=== PATIENT | female | born 1945 | race Caucasian/White ===

== ENCOUNTER 2024-09-02 00:32 | Inpatient (IN) | payer MEDICARE, BC, SELFPAY ==
[2024-09-01] VITALS (17 sets, daily range): BP systolic 92–156; BP diastolic 56–135; PULSE 119; BMI 20.9
--- NOTE | 2024-09-01 21:12 | ED.GENMED ---
History of Present Illness
General
Chief Complaint: Breathing Problem
Time Seen by Provider: 09/01/24 21:11
History of Present Illness
History of Present Illness:
TIME OF INITIAL EVALUATION
- 9:15 PM
REVIEW OF OLD RECORDS
- The patient has history of COPD and is a former smoker. Reviewed records, the patient had vascular surgery in 2022
Note:
CHIEF COMPLAINT(S)
- Breathing difficulty
HISTORY OF PRESENT ILLNESS
Details are initially very limited. The patient is a 79-year-old female presenting with ongoing difficulty breathing. The onset of the breathing issues was not specified, but the patient currently reports no improvement in her breathing status at
present. There has been no mention of previous intubation or severe respiratory distress requiring immediate intervention. The patient has been receiving nebulizer treatments and will continue to receive additional doses. Steroids have not been
administered.
PHYSICAL EXAM
- General: The patient is critically ill in appearance
- HEENT: Moist oral mucosa
- Cardiovascular: No murmurs, tachycardic heart rate, regular rhythm, No chest wall tenderness
- Pulmonary: Marked respiratory distress with increased work of breathing, she has not been communicating, markedly decreased breath sounds with scant wheeze heard on the right
- Abdomen: Soft with no peritoneal signs, no tenderness
- Neurologic: Fair strength all extremities, no coordination deficits
- Psychiatric: Currently nonverbal having trouble communicating and answering any questions, seems to attempt to try to follow commands
- Extremities: Nontender, no edema, moves all extremities equally
- Skin: No rash, no lesions
PROBLEM LIST
Acute Problems:
- Difficulty breathing
PLAN
- Continue nebulizer treatment as initiated.
- Consider the administration of steroids if symptoms persist or worsen.
- Monitor respiratory status and reassess breathing difficulty.
- Obtain arterial blood gas (ABG) for further assessment of respiratory function, if needed.
DIFFERENTIAL DIAGNOSIS
The Differential Diagnosis includes, in no particular order and is not limited to:
1. Chronic obstructive pulmonary disease exacerbation
2. Asthma exacerbation
3. Pneumonia
4. Pulmonary embolism
5. Congestive heart failure
6. Acute bronchitis
7. Interstitial lung disease
8. Pleural effusion
9. Anemia
10. Anxiety-related hyperventilation
RADIOLOGY
- Chest x-ray shows hyperaeration
EKG
- Suspect multifocal atrial tachycardia ventricular rate of 132, nonspecific ST abnormality
LABS
- Chest x-ray shows hyperaeration consistent with COPD, pH 7.06, PCO2 73, white count 10.5, bicarb 17
UPDATE
At approximately 9:30 PM, the patient's condition continued to worsen. She has been having trouble communicating due to severe respiratory distress�intubated as ABG is concerning.
SUMMARY OF ENCOUNTER
The patient was seen in the emergency department for severe respiratory distress due to an acute exacerbation of her COPD. Her condition did not improve with bilevel positive airway pressure (BAP) treatment, necessitating intubation. Arterial blood
gas (ABG) showed respiratory acidosis, indicating a critical level of respiratory failure. The intubation procedure was completed without difficulty, and an ICU admission is planned. A chest x-ray confirmed no concerning abnormalities, and the
endotracheal tube was appropriately placed.
DISPOSITION
Admit to ICU.
ASSESSMENT
The patient is experiencing an acute exacerbation of Chronic Obstructive Pulmonary Disease (COPD) with respiratory acidosis, likely necessitating intensive care unit admission for close monitoring and management.
EMERGENCY TREATMENTS ADMINISTERED
Intubation due to failure of non-invasive ventilation therapies and ongoing respiratory distress.
INDEPENDENT REVIEW OF LABS AND INTERPRETATION OF TESTS
- My independent review of ABG indicates respiratory acidosis.
- My independent review of CBC shows leukocytosis, with a white count of 15.5.
- My independent interpretation of the chest x-ray shows no concerning abnormality; endotracheal tube placement is appropriate.
MEDICAL DECISION MAKING
- Complexity of Data Reviewed: Chronic conditions affecting care include Chronic Obstructive Pulmonary Disease (COPD). Differential Diagnosis considered included acute exacerbation of COPD, pneumonia, congestive heart failure exacerbation, pulmonary
embolism, asthma exacerbation, and others.
- Data:
- Category 1: My independent review of ABG and CBC. Chest x-ray independently interpreted.
- Risk: Admission to ICU was deemed necessary due to the patient�s severe respiratory distress and failure to improve with initial management, thus requiring critical care and close monitoring.
DIAGNOSIS
- Acute exacerbation of Chronic Obstructive Pulmonary Disease (COPD) (ICD-10: J44.1).
- Respiratory acidosis (ICD-10: E87.29).
Phy Exam
Physical Exam
Physical Exam:
See HPI
Scores
Heart Failure Risk
Heart Failure Risk Score: Not Applicable
Course
Orders/Labs/Results
Orders:
Orders
09/01/24 21:07
Electrocardiogram (*1) Urgent
Reason for Study: Shortness of Breath
09/01/24 21:08
EKG- Treatment ONCE
09/01/24 21:14
Complete Blood Count/With Diff Urgent
Comprehensive Metabolic Panel Urgent
09/01/24 21:16
Ipratropium/Albuterol Sulfate [Duoneb] 3 ml INH R NOW STA
Ipratropium/Albuterol Sulfate [Duoneb] 3 ml INH R NOW STA
MethylPREDNISolone PF [Solu-Medrol Pf] 125 mg IV NOW STA
Chest X-ray Portable [CR Chest Portable - 1 View] Urgent
Comment:
Reason For Exam: copd
Reason Study Needs to be Portable: Patient Unstable
09/01/24 21:20
Arterial Blood Gas Urgent
%Oxygen/Room Air: 6L
09/01/24 21:48
Chest X-ray Portable [CR Chest Portable - 1 View] Urgent
Comment:
Reason For Exam: post intubation
Reason Study Needs to be Portable: Patient Unstable
09/01/24 21:49
Add On- LAB Urgent
Comments:: BNP
Tests Added?: BNP to CBC
09/01/24 21:51
Etomidate [Amidate 20 mg] 15 mg IV NOW STA
Fentanyl Citrate/Pf [Sublimaze] 50 mcg IV [id number] PRN
Fentanyl Citrate/Pf [Sublimaze] 55 mcg IV NOW STA
Succinylcholine Chloride [Anectine] 100 mg IV NOW STA
09/01/24 21:52
Triglycerides Routine
Comment: baseline levels with propofol infusion
09/01/24 22:00
FentaNYL 1,000 MCG/100 ML [Sublimaze] 1,000 mcg in 100 ml IV PER PROTOCOL
Indication:: Deep Sedation
Begin Infusion:: Now
Goal:: RASS </= -3, BIS 40-60, ventilator synchrony
Maximum dose in mcg/hr:: 300
Initial Dose in mcg/hr:: 50
Titration Instructions:: Titrate Q30 min until ventilator synchrony, RASS or BIS goal is met.
Titration Instructions:: If RASS >/= -2 or BIS > 60 or ventilator dyssynchrony:
Titration Instructions:: administer bolus dose and increase infusion by 25 mcg/hr.
Titration Instructions:: Administer analgesia bolus dose(s) & titrate analgesia prior to
Titration Instructions:: adjusting sedation.
Over-sedation Instructions:: if BIS < 40 and pt is synchronous with ventilator, decrease infusion by
Over-sedation Instructions:: 25 mcg/hr every 2 hours until BIS = 40-60.
Over-sedation Instructions:: Do not wean infusion to off if patient is receiving a continuous NMBA or
Over-sedation Instructions:: has received a bolus dose of NMBA within the past 3 hours.
Notify provider:: immediately if pt exhibits signs/symptoms of chest wall rigidity,
Notify provider:: hemodynamic instability, or agitation/pain despite maximum dosing.
Additional Instructions:: Patient MUST be mechanically ventilated.
Propofol 1,000,000 Mcg/100 ml [Diprivan] 1,000,000 mcg in 100 ml IV PER PROTOCOL
Indication:: Deep Sedation
Begin Infusion:: Now
Goal:: RASS -3 to -5 or BIS < 60 or ventilator synchrony
Maximum dose in mcg/kg/min:: 50
Initial Dose in mcg/kg/min:: 5
Titration Instructions:: Titrate by 5-10 mcg/kg/min every 5 minutes until RASS -3 to -5 or
Titration Instructions:: BIS < 60 or ventilator synchrony is met.
Titration Instructions:: Administer analgesia bolus dose(s) & titrate analgesia prior to
Titration Instructions:: adjusting sedation.
Taper Instructions:: If RASS is at or below goal for 4 consecutive hours decrease infusion by
Taper Instructions:: 5-10 mcg/kg/min every 2 hours. Do not wean infusion to off if patient is
Taper Instructions:: receiving a continuous NMBA or has received bolus NMBA with the past 3 hrs
Over-sedation Instructions:: If BIS < 40 and synchronous with ventilator decrease infusion by
Over-sedation Instructions:: 5-10 mcg/kg/min every 2 hour until BIS = 40-60.
Notify provider:: immediately if patient exhibits signs/symptoms of propofol-related
Notify provider:: infusion syndrome.
Additional Instructions:: Patient MUST be mechanically ventilated and MUST receive analgesia.
09/01/24 22:12
NT-proBNP Urgent
Comment: ADD ON
Troponin I Urgent
09/02/24 08:00
Polyethylene Glycol Powder [Miralax] 17 grams TUBE DAILY
09/04/24 06:00
Triglycerides Q3D
Comment: every 72 hours while patient is on propofol
09/07/24 06:00
Triglycerides Q3D
Comment: every 72 hours while patient is on propofol
09/10/24 06:00
Triglycerides Q3D
Comment: every 72 hours while patient is on propofol
Abnormal Lab Results
09/01/24 09/01/24
21:14 21:20
WBC 15.5 H 10^3/uL
(4.8-10.8)
RBC 4.07 L 10^6/uL
(4.20-5.40)
MCH 31.2 H pg
(27.0-31.0)
MCHC 32.2 L g/dL
(33.0-37.0)
Absolute Neuts (auto) 9.6 H 10^3/uL
(1.4-6.5)
Absolute Lymphs (auto) 4.6 H 10^3/uL
(1.2-3.4)
Absolute Monos (auto) 1.0 H 10^3/uL
(0.1-0.6)
pH 7.06 L*
(7.35-7.45)
pCO2 73 H* mmHg
(32-35)
pO2 76 L mmHg
(83-108)
HCO3 20.7 L mmol/L
(21-28)
ABG O2 Sat (Measured) 93.8 L %
(94-98)
Sodium 131 L mmol/L
(135-145)
Carbon Dioxide 17 L mmol/L
(22-30)
Glucose 267 H mg/dl
(70-99)
AST 39 H U/L
(14-36)
09/01/24 21:14
09/01/24 21:14
Vital Signs
Initial and Last Documented VS:
Initial Vital Signs
Pulse Ox
80
09/01/24 21:15
Last Documented Vital Signs
Temp Pulse Resp Pulse Ox
36.2 C 133 33 80
09/01/24 21:30 09/01/24 21:19 09/01/24 21:19 09/01/24 21:15
Procedures
Intubations
Procedure completed by: Dr. Makenna Roberts
Method of Intubation: glidescope
Tube size (cm): 7.5
Placement confirmed by: CXR and capnography
Breath sounds after intubation: equal
Intubation complications: no complications
*Pulse Oximetry
SaO2: 80
Oxygen Mode of Delivery: BiPAP
Patient hypoxic: yes
*Critical Care Note
Total Time (30-74mins, 75-104mins- exclusive of procedures): 55min
comment:
Patient has respiratory acidosis not improving on BiPAP�decision was later made to intubate, her vital signs were closely monitored she was emergently given nebs and steroids
ED Attending Note
-
Portions of this chart may have been created with voice recognition software.� Occasional wrong word or��sound alike� substitutions may have occurred due to the inherent limitations of voice recognition software.
Discharge Plan
Departure
Patient Disposition: Admit
Date of Disposition: 09/01/24
Time of Disposition: 22:20
Presentation/result/management discussed w/ accepting MD/DO: Hospitalist
Discharge Problem:
COPD exacerbation
Prescriptions:
No Action
pravastatin 40 mg Tablet
40 mg PO HS
clopidogrel 75 mg Tablet
75 mg PO QPM
albuterol sulfate 90 mcg/actuation Hfa Aerosol Inhaler
2 puff INHALATION PRN PRN (Reason: shortness of breath)
pioglitazone 30 mg Tablet
30 mg PO DAILY
Rx Instructions:
For choloesteral
losartan 100 mg Tablet
100 mg PO DAILY
ipratropium bromide 0.02 % Solution
2.5 ml INHALATION QID
ezetimibe 10 mg Tablet
10 mg PO DAILY
arformoterol 15 mcg/2 mL Solution For Nebulization
15 mcg INHALATION BID
Repatha SureClick 140 mg/mL Pen Injector
140 mg SC Q2W
aspirin 81 mg Tablet,Chewable
81 mg PO DAILY Qty: 90 0RF
Referrals:
UNKNOWN - PT DOES,NOT KNOW [Unknown Provider]
Interventions
Interventions:
*General Assessment Last Done: 09/01/24 21:10
*ED COVID-19 Vaccine History Last Done: 09/01/24 21:13
Discharge Date and Time
Print Language: ALGERIAN
[2024-09-01] MEDS: SOLU-MEDROL PF 125 MG IV (21:25)
[2024-09-01 21:26] LABS: B.E. -10.7 mmol/L; HCO3 20.7 mmol/L (21-28); O2 Saturation % 93.8 % (94-98); PO2 76 mmHg (83-108)
[2024-09-01 21:28] LABS: PCO2 73 mmHg (32-35)
[2024-09-01 21:29] LABS: Hematocrit 39.4 % (37.0-47.0); Hemoglobin 12.7 g/dL (12.0-16.0); Mean Corp Hgb Conc. 32.2 g/dL (33.0-37.0); Mean Corpuscular Volume 96.8 fL (81.0-99.0); Nucleated Red Blood Cells % 0 %; Platelet Count 313 10^3/uL (130-400); Red Cell Dist. Width 13.1 % (11.5-14.5)
[2024-09-01 21:58] LABS: ALT (SGPT) 22 U/L (0-35); AST (SGOT) 39 U/L (14-36); Albumin 4.0 g/dl (3.5-5.0); Alkaline Phosphatase 89 U/L (38-126); Blood Urea Nitrogen 15 mg/dl (7-17); Calcium 9.1 mg/dl (8.4-10.2); Carbon Dioxide 17 mmol/L (22-30); Chloride 103 mmol/L (98-107); Estimated Creatinine Clearance 43 ml/min; Glucose 267 mg/dl (70-99); Potassium 4.7 mmol/L (3.5-5.1); Sodium 131 mmol/L (135-145); Total Protein 7.2 g/dl (6.3-8.2); eGFR > 60.00
[2024-09-01] MEDS: DIPRIVAN 100 IV (21:58)
[2024-09-01] MEDS: ANECTINE 100 MG IV (21:59)
[2024-09-01] MEDS: AMIDATE 20 MG 15 MG IV (22:01)
[2024-09-01] MEDS: SUBLIMAZE 50 MCG IV (22:05)
[2024-09-01] MEDS: SUBLIMAZE 100 IV (22:08)
[2024-09-01 22:49] LABS: Troponin I 0.036 ng/ml
[2024-09-01] MEDS: LASIX 40 MG IV (23:05)
[2024-09-01 23:34] LABS: Triglycerides 105 mg/dl (10-149)
[2024-09-02] VITALS (45 sets, daily range): BP systolic 85–141; BP diastolic 42–85; BMI 20.4
--- NOTE | 2024-09-02 00:24 | HPS.HSE ---
Family Physician
-
Family Physician: Dimas Michelle
Chief Complaint
-
SOB
History of Present Illness
Patient is a 79y F with PMH significant for COPD, CHF and DM-II who presents to ED complaining of SOB. History obtained from ED staff and via phone. states that patient became ill about one week ago with cough, dyspnea and
fatigue. She slept a great deal for a few days and seemed to be feeling better. Over the past 24 hours she began to have wheezing and increased SOB. This evening called 911 as patient was in extremis. Patient presented to the ED in
respiratory distress. BiPAP was attempted in the ED without improvement in her dyspnea or oxygenation.
Patient was intubated in the ED and at the time of my exam is sedated and appears comfortable. Oxygen saturations are 99-100% on 100% FiO2.
states that she has had two prior similar hospitalizations in the past. She has been intubated on one prior occasion.
Medical History
Past Medical History
Past Medical History: Reports Other
Additional Past Medical History:
Hypertension
CHF - Unknown Type
Thoracic Aortic Aneurysm
COPD
DM-II
ASCVD / Carotid Stenosis
Past Surgical History: Reports Other
Additional Past Surgical History:
Cataracts
LLE Stent
Fem-Pop Bypass
Social History
Tobacco: Former Smoker
Alcohol: Occasional
Drug: None
Personal:
Living: With Family
Family History
Family History: Not pertinent
Allergies / Home Medications
Allergies reflects when Allergies were last updated in [employer].
Home Medications with original date entered in [employer]
Allergy/Medication List:
Allergies
Allergy/AdvReac Type Severity Reaction Status Date / Time
No Known Allergies Allergy Verified 09/01/24 21:26
Home Medications
albuterol sulfate 90 mcg/actuation aerosol inhaler 2 puff inhalation PRN PRN shortness of breath 10/17/22
aspirin 81 mg chewable tablet 81 mg PO DAILY #90 tabs 10/24/22
calcium 600 mg (as carbonate)-vitamin D3 5 mcg (200 unit) tablet 1 tab PO DAILY 09/02/24
furosemide 20 mg tablet 20 mg PO DAILY 09/02/24
metoprolol succinate 25 mg tablet,extended release 24 hr 25 mg PO DAILY 09/02/24
multivitamin 1 tab PO DAILY 09/02/24
tiotropium 2.5 mcg-olodaterol 2.5 mcg/actuation mist for inhalation (Stiolto Respimat) 2 puff inhalation DAILY 09/02/24
ursodiol 300 mg capsule 300 mg PO DAILY 09/02/24
Review of Systems
-
Unable to obtain full review of systems at this time due to: Patient Intubation
Physical Exam
Vital Signs
Vital Signs
Temp Pulse Resp BP Pulse Ox
98.9 F 97 17 107/69 80
09/01/24 22:10 09/02/24 00:15 09/02/24 00:15 09/02/24 00:15 09/01/24 22:41
Physical Exam
General: Other (79y F currently sedated on the ventilator.)
HEENT: Moist mucous membranes, PERRLA and Other (ETT in place. No JVD.)
Respiratory: Other (few coarse breath sounds at the L base - otherwise clear.)
Cardiac: S1/S2 and Regular Rhythm; No Murmur
GI: Soft, Non Tender, Non Distended and Normal Bowel Sounds
Musculoskeletal: No Clubbing, No Cyanosis and No Edema
Neuro: Sedated
Laboratory Results
-
09/01/24 21:14
09/01/24 21:14
Laboratory Results
pH 7.06 (7.35-7.45) L* 09/01/24 21:20
pCO2 73 mmHg (32-35) H* 09/01/24 21:20
pO2 76 mmHg (83-108) L 09/01/24 21:20
HCO3 20.7 mmol/L (21-28) L 09/01/24 21:20
Total Bilirubin 0.8 mg/dl (0.2-1.3) 09/01/24 21:14
AST 39 U/L (14-36) H 09/01/24 21:14
ALT 22 U/L (0-35) 09/01/24 21:14
Alkaline Phosphatase 89 U/L (38-126) 09/01/24 21:14
Troponin I 0.036 ng/ml H* 09/01/24 22:12
Impression/Plan
-
A/P: Patient is a 79y F with PMH significant for COPD, CHF and DM-II who presents to ED complaining of SOB.
LLL Pneumonia
COPD with Acute Exacerbation secondary to the above
Acute Hypoxemic and Hypercapnic Respiratory Failure secondary to the above
Sepsis secondary to the above
- Admit to ICU for further evaluation and treatment.
- Patient presents with tachycardia, tachypnea, leukocytosis and LLL pneumonia on CXR.
- note URI symptoms one week ago with interm improvement and then current symptoms - ? viral illness with secondary bacterial infection?
- IV abx. Check COVID / Flu status.
- Continue vent support.
- IV steroids given significant wheezing noted on initial exam / at home by - wean as able.
- Continue nebs ATC and PRN.
- Follow ABG and adjust vent settings as needed.
- Pulm / Pesticide Control Inspector evaluation.
- Follow for clinical improvement / wean from vent when able.
Chronic HF - Unknown Type
- Does not appear volume overloaded on exam.
- BNP elevation likely secondary to pulm HTN / respiratory distress.
- Hold further diuretics for now.
- IVFs +/- pressors as needed to maintain perfusion.
- Check Echo.
- Usually follows with Dr. Jose Regalado (Cardiology).
ASCVD (Carotid Stenosis / PAD)
Abnormal Troponin
- Troponin elevation likely due to acute illness / sepsis.
- Follow to [facility].
- Echo as noted above.
DM-II
- Not on any DM medications per list provided by .
- Follow glucose and cover with SSI as needed.
- Update A1C.
DVT Prophylaxis: Lovenox
Code Status: Full
[2024-09-02] MEDS: ROCEPHIN 1000 MG IV ×2 (01:03→23:11)
[2024-09-02] MEDS: STERILE WATER FOR INJECTION 10 ML IV ×2 (01:03→23:10)
[2024-09-02] MEDS: VIBRAMYCIN 260 MG IV ×3 (01:03→23:22)
[2024-09-02] MEDS: NSS 1000 IV (01:04)
[2024-09-02] MEDS: DUONEB 3 ML INH ×6 (01:09→18:25)
[2024-09-02 01:29] LABS: Urine Character Slightly Cloudy (Clear)
[2024-09-02 01:35] LABS: Urine Squamous Cell 0-2 /LPF (Few)
[2024-09-02 01:36] LABS: Urine Red Blood Cell 0-2 /HPF (0-2); Urine White Cell 50-60 /HPF (0-5)
[2024-09-02 01:46] LABS: COVID-19 Antigen Negative (Negative)
[2024-09-02 02:59] LABS: B.E. -4.5 mmol/L; HCO3 21.1 mmol/L (21-28); O2 Saturation % 99.5 % (94-98); PCO2 40 mmHg (32-35); PO2 160 mmHg (83-108); Potassium 3.5 mMOL/L (3.5-5.1); Sodium 132 mMOL/L (136-145)
--- NOTE | 2024-09-02 03:00 | PTCARENOTE ---
rec`d pt at 0200 from ED intubated and sedated on prop and fent. afebrile. 7.6 ETT a/c vent settings: 14/350/40%/ of peep. restraints. wynn. OGT. PIVS flushed and patent. safe environment maintained.
[2024-09-02 03:01] LABS: Glucose - Point of Care 137 mg/dl (70-99)
[2024-09-02 03:29] LABS: Hematocrit 34.0 % (37.0-47.0); Hemoglobin 11.3 g/dL (12.0-16.0); Mean Corp Hgb Conc. 33.2 g/dL (33.0-37.0); Mean Corpuscular Volume 93.7 fL (81.0-99.0); Platelet Count 157 10^3/uL (130-400); Red Cell Dist. Width 12.9 % (11.5-14.5)
[2024-09-02 03:48] LABS: ALT (SGPT) 34 U/L (0-35); AST (SGOT) 57 U/L (14-36); Albumin 3.5 g/dl (3.5-5.0); Alkaline Phosphatase 90 U/L (38-126); Blood Urea Nitrogen 17 mg/dl (7-17); Calcium 8.3 mg/dl (8.4-10.2); Carbon Dioxide 22 mmol/L (22-30); Chloride 104 mmol/L (98-107); Estimated Creatinine Clearance 42 ml/min; Glucose 136 mg/dl (70-99); HDL Cholesterol 78 mg/dl; LDL Cholesterol, Calculated 77 mg/dl; Magnesium 1.7 mg/dl (1.6-2.3); Potassium 3.9 mmol/L (3.5-5.1); Sodium 133 mmol/L (135-145); Total Protein 6.5 g/dl (6.3-8.2); Very Low Density Lipoprotein 20 mg/dl (0-30); eGFR > 60.00
[2024-09-02 04:03] LABS: Troponin I 0.353 ng/ml
[2024-09-02 05:20] LABS: Glucose - Point of Care 146 mg/dl (70-99)
[2024-09-02] MEDS: SOLU-MEDROL PF 40 MG IV (05:54)
--- NOTE | 2024-09-02 07:26 | CON.INTV ---
Addendum entered and electronically signed by Gloria Hall MD 09/02/24 17:33:
Patient extubated to nasal cannula, continues to do well
Stable for transfer out of ICU
Pulmonary service will continue to follow
Original Note:
Consultation
Consultation Request
Date/Time Consultation Requested: September 02, 2024
Date/Time Consultation Performed: September 02, 2024
Medical History
-
Chief Complaint: shortness of breath
History of Present Illness:
79 yo F PMH of COPD, HF, and DM p/w dyspnea. Patient experienced cough, dyspnea, fatigue 1 week prior. However, over past few days, increased wheezing and dyspnea. Called for EMS, who noted she was tripodding, and unable to speak in complete
sentences. Pulsox in the field 72%, started on nonbreather, improved to 95%, given duonebs then taken to ED.
ED course: BIPAP was placed, VS n/f tachypnea to 33, tachycardia to 133, pulsox of 80%. She was also administered duonebs, methylprednisone, and doxycycline. Labs at that time: ABG was pH 7.06, pCO2 73, pO2 76. Patient was then intubated given ABG
results and taken to ICU for further management.
Repeat ABG was 7.33/40/160.
Other labs n/f WBC 15.5, proBNP 95829 was given lasix 40mg), and troponin of 0.036.
No acute events over night, she is lightly sedated this morning and able to follow commands. She reports that she feels better.
Past Medical History
Past Medical History: Reports Other
Additional Past Medical History:
Hypertension
CHF - Unknown Type
Thoracic Aortic Aneurysm
COPD
DM-II
ASCVD / Carotid Stenosis
Past Surgical History: Reports Other
Additional Past Surgical History:
Cataracts
LLE Stent
Fem-Pop Bypass
Social History
Tobacco: Former Smoker
Alcohol: Occasional
Drug: None
Personal:
Living: With Family
Allergies / Home Medications
Allergies
Allergy/AdvReac Type Severity Reaction Status Date / Time
No Known Allergies Allergy Verified 09/01/24 21:26
Home Medications
�Medication �Instructions �Recorded �Confirmed �Last Taken �Type
albuterol sulfate 90 mcg/actuation 2 puff inhalation PRN PRN 10/17/22 09/02/24 10/23/22 20:00 History
aerosol inhaler shortness of breath
aspirin 81 mg chewable tablet 81 mg PO DAILY #90 tabs 10/24/22 09/02/24 Unknown Rx
calcium 600 mg (as 1 tab PO DAILY 09/02/24 09/02/24 Unknown History
carbonate)-vitamin D3 5 mcg (200
unit) tablet
furosemide 20 mg tablet 20 mg PO DAILY 09/02/24 09/02/24 Unknown History
metoprolol succinate 25 mg 25 mg PO DAILY 09/02/24 09/02/24 Unknown History
tablet,extended release 24 hr
multivitamin 1 tab PO DAILY 09/02/24 09/02/24 Unknown History
tiotropium 2.5 mcg-olodaterol 2.5 2 puff inhalation DAILY 09/02/24 09/02/24 Unknown History
mcg/actuation mist for inhalation
(Stiolto Respimat)
ursodiol 300 mg capsule 300 mg PO DAILY 09/02/24 09/02/24 Unknown History
Review of Systems
-
Unable to Obtain full review of systems at this time due to: Patient Intubation
History Source: Patient
Vitals / Labs / Diagnostic Testing
Vital Signs
Temp Pulse Resp BP Pulse Ox
98.9 F 71 14 89/59 97
09/02/24 03:10 09/02/24 06:15 09/02/24 06:15 09/02/24 06:00 09/02/24 06:15
Lab Data
09/02/24 03:05
09/02/24 03:05
Laboratory Results
09/01/24 09/02/24 09/02/24
21:20 02:48 02:49
pH 7.06 L* 7.33 L Cancelled
pCO2 73 H* 40 H Cancelled
pO2 76 L 160 H Cancelled
HCO3 20.7 L 21.1 Cancelled
O2 Delivery Level Cancelled
WBC 9.9 from 15.5
Hgb 11.3
Plt 157 from 313
Cr 0.9
Troponin 0.036 -> 0.353
Microbiology
09/02/24 01:05 Nasal Swab Influenza Types A & B (JYOTSNA) - Final
Negative for Influenza A & B, NAAT
Negative results must be combined with clinical observations
and patient history.
Nucleic Acid Amplification test (NAAT)performed on the
[employer] platform.
Diagnostic Testing:
CXR: left lung base opacities c/f atelectasis or pneumonia
Micro: flu/covid negative, urine culture pending
Ventilator settings: 14/350/5/30
Physical Exam
-
HEENT: Normocephalic
Cardiovascular: Regular Rhythm and Other (no murmurs, no lower extremity edema)
Respiratory: Other (no wheezing on my exam)
GI: Non Tender
Neurology: No Motor Deficits and Other (arousable)
Skin: Warm and Dry
General: Comfortable
Assessment
-
79 yo F with PMH of COPD, HF, DM who is presenting with dyspnea requiring intubation most concerning for acute exacerbation of COPD with respiratory failure.
# COPD - acute exacerbation
- patient likely had some viral illness (e.g. rhinovirus) in the preceding week, trigger this exacerbation of COPD
- although worsening symptoms over past 2 days, a superinfection seems unlikely
- CXR may be pneumonia or atelectasis
- Given duonebs, methylprednisone, doxycyline, and ceftriaxone for managing COPD
- VS: afebrile but elevated WBC that has normalized. A normalized WBC within 6 hours may point to reactive leukocytosis > underlying infection (E.g. pneumonia)
- Wheezing has resolved, oxygen saturation is appropriate, patient is doing well on light sedation.
- Consider SAT/SBT today with plan for potential extubation
- Consider modifying steroid regimen to PO prednisone for tomorrow since she has received methylprednisone doses this admission
# Respiratory failure
- Increased WOB, ABG showing respiratory acidosis indicates respiratory failure, requiring intubation
- Repeat ABG is within normal limits, and COPD appears resolved (no wheezing)
- Plan for SAT/SBT as above.
# HF - diastolic dysfunction
- Per chart, hx of diastolic dysfunction
- Elevated BNP to 12,800 is likely in setting of COPD exacerbation
- received furosemide, I/O is net -840 ccs
# CAD
- elevated troponins but no signs of ischemia on EKG
- Likley due to increased myocardial stress in COPD exacberation, tachycarida, and/or chronic HF.
- Trend troponins
# Disposition
- Endo: BG in 130s-140s
- GI ppx: pantoprazole
- Heme ppx: lovenox, Plt count decreased from 313 to 157, consider PM CBC but platelets may also be increased due to acute phase reactant during COPD exacerbation
Plans summary:
- Plan for SAT/SBT for potential extubation
- For steroids, consider PO prednisone for tomorrow
- Continue antibiotics and duonebs
- F/u troponins, consider PM CBC for Plt
Recommendations are not final until attending attestation/note.
Data Reviewed
-
EKG: Report reviewed by me
Radiology: Report reviewed by me
CT Scan: Report reviewed by me
MRI: Report reviewed by me
--- NOTE | 2024-09-02 07:30 | PTCARENOTE ---
Received patient arousable to voice on propofol @15mcg/kg/min and fentanyl @25mcg/hr, B/L wrist restraints, ET to Vent on FiO2 30%, 1st AVB w/ PVCs and PACs, BP WNL, OGT in place to LIS, Conroy draining yellow urine.
[2024-09-02] MEDS: NSS (PRESERVATIVE FREE) 10 ML IV (09:00)
[2024-09-02] MEDS: LOW STRENGTH ASPIRIN 81 MG TUBE (09:00)
[2024-09-02] MEDS: PROTONIX IV 40 MG IV (09:00)
[2024-09-02] MEDS: MIRALAX 17 GRAMS TUBE (09:00)
[2024-09-02 09:45] LABS: Glycohemoglobin (HgbA1c) 5.4 % (4.0-5.6)
[2024-09-02] MEDS: ZOFRAN 4 MG IV (11:16)
--- NOTE | 2024-09-02 12:00 | PTCARENOTE ---
Reassessed the patient, extubated @11:50, currently on RA, following commands, all needs addressed. Aureliano updated at bedside.
[2024-09-02 13:06] LABS: Glucose - Point of Care 110 mg/dl (70-99)
[2024-09-02 13:30] LABS: Troponin I 0.209 ng/ml
--- NOTE | 2024-09-02 14:45 | W.PN.UPDATE ---
Update Note
Progress Note Update
Non-billable addendum
Extubated around noon-time, currently on RA
reports some cough, mild SOB otherwise comfortable
Assessment:
LLL Pneumonia
COPD with Acute Exacerbation secondary to the above
Acute Hypoxemic and Hypercapnic Respiratory Failure secondary to the above
Sepsis secondary to the above
- Patient presents with tachycardia, tachypnea, leukocytosis and LLL pneumonia on CXR.
- note URI symptoms one week ago with interm improvement and then current symptoms - ? viral illness with secondary bacterial infection?
- COVID/Flu negative
- s/p extubation 09/02
- continue IV Rocephin, oral Doxy, day 1
- continue IV Steroids
- Continue nebs ATC and PRN.
- Pulm/[employer] General Superintendent following
- Follow for clinical improvement/wean from vent when able.
Chronic HF - Unknown Type
- Does not appear volume overloaded on exam.
- BNP elevation likely secondary to pulm HTN/respiratory distress.
- Hold further diuretics for now.
- Check Echo.
- Usually follows with Dr. Jose Regalado (Cardiology).
ASCVD (Carotid Stenosis / PAD)
non-ischemic myocardial injury in setting of acute illness related to PNA/AECOPD
- Troponin peaked .353
- Check Echo
DM-II
- Not on any DM medications per list provided by .
- Follow glucose and cover with SSI as needed.
- A1c 5.4
DVT Prophylaxis: Lovenox
Code Status: Full
[2024-09-02 16:55] LABS: Glucose - Point of Care 108 mg/dl (70-99)
--- NOTE | 2024-09-02 17:00 | PTCARENOTE ---
Reassessed the patient, notified Dr. Goins regarding patient's HR trending to 120s-130s at times with PACs and PVCs, MD ordered to resume home Metoprolol dose.
[2024-09-02] MEDS: TOPROL XL 25 MG PO (17:20)
[2024-09-02] MEDS: LOVENOX 40 MG SC (17:21)
[2024-09-02 18:00] LABS: Troponin I 0.187 ng/ml
--- NOTE | 2024-09-02 18:20 | PTCARENOTE ---
received pt from ICU at 1820. pt walked from stretcher to chair. Pt orientated to room, assessed, put on tele, and VSS. Plan of care ongoing.
[2024-09-02] MEDS: PULMICORT 0.5 MG INH (18:25)
[2024-09-02] MEDS: XARELTO 2.5 MG PO (19:53)
[2024-09-02 23:24] LABS: Glucose - Point of Care 99 mg/dl (70-99)
[2024-09-03 03:24] VITALS: BP 128/76
[2024-09-03 05:57] VITALS: BMI 20.6
[2024-09-03 06:44] LABS: Hematocrit 30.8 % (37.0-47.0); Hemoglobin 10.4 g/dL (12.0-16.0); Mean Corp Hgb Conc. 33.8 g/dL (33.0-37.0); Mean Corpuscular Volume 92.8 fL (81.0-99.0); Platelet Count 171 10^3/uL (130-400); Red Cell Dist. Width 13.2 % (11.5-14.5)
[2024-09-03 07:00] VITALS: BP 108/78
[2024-09-03 07:03] LABS: Blood Urea Nitrogen 24 mg/dl (7-17); Calcium 8.8 mg/dl (8.4-10.2); Carbon Dioxide 25 mmol/L (22-30); Chloride 105 mmol/L (98-107); Estimated Creatinine Clearance 43 ml/min; Glucose 96 mg/dl (70-99); Potassium 4.0 mmol/L (3.5-5.1); Sodium 131 mmol/L (135-145); eGFR > 60.00
[2024-09-03] MEDS: PULMICORT 0.5 MG INH (07:07)
[2024-09-03] MEDS: DUONEB 3 ML INH ×2 (07:08→11:24)
[2024-09-03 07:58] LABS: Glucose - Point of Care 114 mg/dl (70-99)
[2024-09-03] MEDS: DELTASONE 30 MG PO (08:41)
[2024-09-03] MEDS: XARELTO 2.5 MG PO (08:42)
[2024-09-03] MEDS: TOPROL XL 25 MG PO (08:42)
[2024-09-03] MEDS: LASIX 20 MG PO (08:42)
[2024-09-03] MEDS: LOW STRENGTH ASPIRIN 81 MG TUBE (08:42)
[2024-09-03] MEDS: MIRALAX 17 GRAMS TUBE (08:43)
[2024-09-03 09:18] VITALS: BP 122/81; PULSE 120; PULSE 144; O2SAT 97
--- NOTE | 2024-09-03 09:24 | PTOTSP ---
pt currently requires supervision to no assistance to complete simple ADLs, functional transfers, ambulation. pt's HR elevated with minimal activity, RN notified and updated. pt does not report any symptoms. no acute OT needs identified at this
time, will sign off.
[2024-09-03] MEDS: URSO 750 MG PO (09:56)
[2024-09-03 11:31] VITALS: BP 140/78
[2024-09-03] MEDS: VIBRAMYCIN 260 MG IV (11:35)
--- NOTE | 2024-09-03 11:51 | W.PN.HOSP.TC ---
Addendum entered and electronically signed by Roger Goins MD 09/03/24 12:08:
gram negative UTI - continue Cefdinir at home
Original Note:
Today's Communication/Plan
-
dc to home
Assessment / Plan
Assessment / Plan
Assessment:
LLL Pneumonia
COPD with Acute Exacerbation secondary to the above
Acute Hypoxemic and Hypercapnic Respiratory Failure secondary to the above
Sepsis secondary to the above
- Patient presents with tachycardia, tachypnea, leukocytosis and LLL pneumonia on CXR.
- note URI symptoms one week ago with interm improvement and then current symptoms - ? viral illness with secondary bacterial infection?
- COVID/Flu negative
- s/p extubation 09/02
- continue IV Rocephin, oral Doxy, day 2 - dc on Cefdinir/Doxy x 7 days total
- continue prednisone with taper at discharge
- Continue nebs ATC and PRN. arrange OP Neb machine
- Trilegy at discharge
- OP Pulm f/u
Chronic HFrEF
- Does not appear volume overloaded on exam.
- BNP elevation likely secondary to pulm HTN/respiratory distress.
- Hold further diuretics for now.
- Echo: Normal left ventricular chamber size. Global hypokinesis. Mildly reduced left ventricular systolic function. Left ventricular ejection fraction is 40-45%. Mild concentric left ventricular hypertrophy. Stage II diastolic dysfunction
suggestive of abnormal relaxation and increased filling pressures. Normal right ventricular size and function. Mild to moderate mitral regurgitation. Mild tricuspid regurgitation. Estimated pulmonary artery pressure of 43 mmHg, assuming a right
atrial pressure of 8 mmHg. Right heart pressures were mildly elevated.
- Usually follows with Dr. Jose Regalado (Cardiology).
ASCVD (Carotid Stenosis / PAD)
non-ischemic myocardial injury in setting of acute illness related to PNA/AECOPD
- Troponin peaked .353
DM-II
- Not on any DM medications per list provided by .
- Follow glucose and cover with SSI as needed.
- A1c 5.4
DVT Prophylaxis: Lovenox
Code Status: Full
More than 30 minutes spent in discharge including
Final examination of the patient
Summarizing hospital stay
Instructions for continuing care to all relevant caregivers
Preparation of discharge records, prescriptions, and referral forms
Total time spent (in minutes): 41
Anticipated Discharge: Today
Subjective/Interval History
-
Date of Service: September 03, 2024
breathing stable, on RA. No SOB at rest or exertion with therapy
Objective Data
-
Labs:
Laboratory Results
09/03/24
06:06
WBC 6.6
Hgb 10.4 L
Hct 30.8 L
Plt Count 171
Sodium 131 L
Potassium 4.0
Chloride 105
Carbon Dioxide 25
BUN 24 H
Creatinine 0.9
Glucose 96
Calcium 8.8
Vital Signs:
Vital Signs
Temp Pulse Resp BP Pulse Ox
97.8 F 85 14 140/78 98
09/03/24 11:31 09/03/24 11:31 09/03/24 11:31 09/03/24 11:31 09/03/24 11:31
I&O
09/02/24 09/03/24 09/04/24
06:59 06:59 06:59
Intake Total 35.8 / 43.1 1004.2 / 1004.2
Output Total 850 / 895 355 / 355
Balance -814.2 / -851.9 649.2 / 649.2
Physical Exam
-
General: No Apparent Distress
HEENT: Normocephalic and Atraumatic
Respiratory: Negative Wheezes
Cardiac: Regular Rhythm and S1/S2
GI: Soft and Nontender
Genito-urinary: No Costovertebral Tender
Musculoskeletal: No Edema
Neuro: AO x 3
Psych: Calm
Data Reviewed
-
Total Time Spent with Patient (in minutes): 41
Labs: Labs Reviewed by me
[2024-09-03 11:52] LABS: Glucose - Point of Care 104 mg/dl (70-99)
--- NOTE | 2024-09-03 12:13 | W.DS.TRANS ---
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
-
Discharge Instructions:
Discharge Diagnosis/Procedures Community acquired pneumonia with acute COPD
exacerbation- requiring 12 hours on Ventilator
Diet Diabetic, Carb Controlled
Activity As tolerated
Instructions:
Stand-Alone Forms:
Changes to Home Medications: No
Discharge Medications:
DC Medications w/original date entered in [employer]
aspirin 81 mg chewable tablet 81 mg PO DAILY #90 tabs 10/24/22
calcium 600 mg (as carbonate)-vitamin D3 5 mcg (200 unit) tablet 1 tab PO DAILY 09/02/24
evolocumab 140 mg/mL subcutaneous syringe (Repatha Syringe) 140 mg SC Q2W 09/02/24
furosemide 20 mg tablet 20 mg PO DAILY 09/02/24
metoprolol succinate 25 mg tablet,extended release 24 hr 25 mg PO BID 09/02/24
multivitamin 1 tab PO DAILY 09/02/24
rivaroxaban 2.5 mg tablet 2.5 mg PO BID Blood Clot Prevention/Tx 09/02/24
tiotropium 2.5 mcg-olodaterol 2.5 mcg/actuation mist for inhalation (Stiolto Respimat) 2 puff inhalation DAILY 09/02/24
ursodiol 250 mg tablet 750 mg PO DAILY 09/02/24
albuterol sulfate 2.5 mg/3 mL (0.083 %) solution for nebulization 2.5 mg (3 mL) inhalation R Q4HPRN PRN SOB #75 mL 09/03/24
albuterol sulfate 90 mcg/actuation aerosol inhaler 2 puff inhalation PRN shortness of breath #8.5 grams 09/03/24
cefdinir 300 mg capsule 300 mg PO BID #10 caps 09/03/24
doxycycline monohydrate 100 mg capsule 100 mg PO BID #10 caps 09/03/24
fluticasone fur. 200 mcg-umeclid 62.5 mcg-vilant 25 mcg inhalat.powder (Trelegy Ellipta) 1 inh inhalation DAILY #60 ea 09/03/24
prednisone 10 mg tablet 10 mg PO DIRECTED #24 tabs 09/03/24
Home Medication Changes
Pending Results: No
Total time spent discharging patient (in min): 41
--- NOTE | 2024-09-03 12:56 | CM ---
production stage manager reviewed patient's chart and patient was admitted from home, patient and spouse live with daughter son in law and grandchildren in a 2 story home, per patient she spends 6 months in [place] each year, patients daughter's home is a
multilevel home patient and her spouse have a 1st floor set up, patient is independent with adl's and ambulation, no dme, patient drives, per physician patient needs an nebulizer, per patient she is not sure if she has a nebulizer, script obtained
and per [facility] [facility] they have Nebulizers in stock for $50, script provided to patient along with directions to [facility] [facility]. Home no needs.
PCP: Dr Cbarera
Pharmacy: [facility]
== END 2024-09-03 14:20 | disposition home or self-care (01) | DRG 871 ==
LOC: 3 WEST ACU 00:32
PROVIDERS: Nurse Practitioner Primary Care; ADMITTING PHYSICIAN Hospitalist; ATTENDING PHYSICIAN Internal Medicine; CONSULT PHYSICIAN Internal Medicine; EMERGENCY PHYSICIAN Emergency Medicine; FAMILY PHYSICIAN Family Medicine
PROC: 5A09357 Assistance with Respiratory Ventilation, Less than 24 Consecutive Hours, Continuous Positive Airway Pressure (ICD-10-PCS; 2024-09-01)
PROC: 5A1935Z Respiratory Ventilation, Less than 24 Consecutive Hours (ICD-10-PCS; 2024-09-02)
PROC: 0BH17EZ Insertion of Endotracheal Airway into Trachea, Via Natural or Artificial Opening (ICD-10-PCS; 2024-09-02)
DX: A41.9 Sepsis, unspecified organism (principal); J18.9 Pneumonia, unspecified organism; J96.01 Acute respiratory failure with hypoxia; J96.02 Acute respiratory failure with hypercapnia; J44.1 Chronic obstructive pulmonary disease with (acute) exacerbation; E87.29 Other acidosis; I50.22 Chronic systolic (congestive) heart failure; N39.0 Urinary tract infection, site not specified; I5A Non-ischemic myocardial injury (non-traumatic); J44.0 Chronic obstructive pulmonary disease with (acute) lower respiratory infection; E11.9 Type 2 diabetes mellitus without complications; I11.0 Hypertensive heart disease with heart failure; I34.0 Nonrheumatic mitral (valve) insufficiency; B96.89 Other specified bacterial agents as the cause of diseases classified elsewhere; I25.10 Atherosclerotic heart disease of native coronary artery without angina pectoris; I71.20 Thoracic aortic aneurysm, without rupture, unspecified; I27.20 Pulmonary hypertension, unspecified; Z87.891 Personal history of nicotine dependence; Z79.82 Long term (current) use of aspirin; Z79.02 Long term (current) use of antithrombotics/antiplatelets; Z11.52 Encounter for screening for COVID-19
CPT/HCPCS: 31500; 71045; 80048; 80053; 80061; 81003; 81015; 82248; 82330; 82805; 82962; 83036; 83735; 83880; 84100; 84132; 84302; 84443; 84478; 84484; 85025; 85027; 87077; 87086; 87186; 87502; 87811; 93005; 93306; 94002; 94640; 96374; 96375; 96376; 97165; 99291

== ENCOUNTER 2024-10-06 16:45 | Inpatient (IN) | payer MEDICARE, BC, SELFPAY ==
[2024-10-06] VITALS (10 sets, daily range): BP systolic 132–214; BP diastolic 80–137
--- NOTE | 2024-10-06 17:18 | HPS.HSE ---
Family Physician
-
Family Physician: NOT KNOW UNKNOWN - PT DOES
Chief Complaint
-
Recurrent episodes of exertional shortness of breath
History of Present Illness
OUTPATIENT SOLUTIONS DELIVERY CONSULTANT: Dr. Jose Regalado
OUTPATIENT HUMAN RESOURCES CLERK: DR. Shawna Lorenzo
79-year-old female with past medical history significant for COPD and recent hospital admission for COPD exacerbation with left lower lobe pneumonia requiring intubation x 1 day in August 2024, HFrEF (40-45%), carotid stenosis, PAD with left fem-pop
bypass and left common iliac stenting, hypertension, type 2 diabetes. Due to recurrent episodes of shortness of breath, patient underwent elective catheterization at [facility] on 10/[address] Murillo, and found to have multivessel coronary
disease. Patient was transferred to [facility] for CABG evaluation. She denies chest pressure or shortness of breath on arrival. Her last dose of Xarelto was Sunday (10/03/2024).
Pertinent negatives: Denies CVA/TIA, dysphagia, chest radiation or surgery, bowel/bladder issues, DVT/PE, vein stripping, cancer
Medical History
Past Medical History
Past Medical History: Reports Other
Additional Past Medical History:
COPD w/LLL PNA admit for intubation (09/02/24)
HFrEF (40-45%)
carotid stenosis
PAD
T2DM
HTN
fatty liver
Past Surgical History: Reports Other (L internal iliac stent f/b fem-pop bypass (2016), lithotripsy in stent stenosis & new L common iliac stent (2022))
Social History
Tobacco: Former Smoker (quit 10 year ago)
Alcohol: Occasional
Drug: None
Personal:
Living: With Family
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
Family History
Family History: Not pertinent
Allergies / Home Medications
Allergies reflects when Allergies were last updated in [employer].
Home Medications with original date entered in [employer]
Allergy/Medication List:
Allergies
Allergy/AdvReac Type Severity Reaction Status Date / Time
No Known Allergies Allergy Verified 09/01/24 21:26
Home Medications
�Medication �Instructions �Recorded
aspirin 81 mg chewable tablet 81 mg PO DAILY #90 tabs 10/24/22
calcium 600 mg (as 1 tab PO DAILY 09/02/24
carbonate)-vitamin D3 5 mcg (200
unit) tablet
evolocumab 140 mg/mL subcutaneous 140 mg SC Q2W 09/02/24
syringe (Repatha Syringe)
furosemide 20 mg tablet 20 mg PO DAILY 09/02/24
metoprolol succinate 25 mg 25 mg PO BID 09/02/24
tablet,extended release 24 hr
multivitamin 1 tab PO DAILY 09/02/24
rivaroxaban 2.5 mg tablet 2.5 mg PO BID Blood Clot 09/02/24
Prevention/Tx
tiotropium 2.5 mcg-olodaterol 2.5 2 puff inhalation DAILY 09/02/24
mcg/actuation mist for inhalation
(Stiolto Respimat)
ursodiol 250 mg tablet 750 mg PO DAILY 09/02/24
albuterol sulfate 2.5 mg/3 mL 2.5 mg (3 mL) inhalation R Q4HPRN 09/03/24
(0.083 %) solution for nebulization PRN SOB #75 mL
albuterol sulfate 90 mcg/actuation 2 puff inhalation PRN shortness of 09/03/24
aerosol inhaler breath #8.5 grams
cefdinir 300 mg capsule 300 mg PO BID #10 caps 09/03/24
doxycycline monohydrate 100 mg 100 mg PO BID #10 caps 09/03/24
capsule
fluticasone fur. 200 mcg-umeclid 1 inh inhalation DAILY #60 ea 09/03/24
62.5 mcg-vilant 25 mcg
inhalat.powder (Trelegy Ellipta)
prednisone 10 mg tablet 10 mg PO DIRECTED #24 tabs 09/03/24
losartan 25 mg tablet 25 mg PO DAILY 10/06/24
spironolactone 25 mg tablet 25 mg PO DAILY 10/06/24
Review of Systems
-
History Source: Patient
A 12 point ROS was completed and negative except as noted: Yes
Physical Exam
Vital Signs
Vital Signs
Temp Pulse Resp BP Pulse Ox
98.6 F 78 16 165/137 97
10/06/24 16:53 10/06/24 16:56 10/06/24 16:53 10/06/24 16:57 10/06/24 16:53
Physical Exam
General: Well Developed, Well Nourished, No Apparent Distress and Conversant
HEENT: NormoCephalic, Anicteric, Moist mucous membranes, PERRLA and Oxygen (BiPAP use)
Respiratory: Clear
Cardiac: S1/S2 and Regular Rhythm
Breast: Deferred by me
GI: Soft, Non Tender, Non Distended and Normal Bowel Sounds
Rectal: Deferred by Provider
Genito-urinary: Deferred by me
Musculoskeletal: No Clubbing, No Cyanosis and No Edema
Skin: Warm and Dry
Neuro: AO x 3, No Motor Deficits, No Sensory Deficits and Other (R carotid bruit)
Hematologic/Lymphatic: No Lymphadenopathy
Psych: Calm and Intact Judgment/Insight
Laboratory Results
-
No labs sent from [facility]
Impression/Plan
-
IMPRESSION: 79 year old female transferred to [facility] for CABG evaluation of multivessel coronary disease
PLAN:
- obtain imaging from [place]
- surgeon to review imaging and discuss risk/benefit with patient
- preop diagnostics ordered including PFTs, TTE, B/L LE vein mapping
- last Xarelto dose 10/03/24
[2024-10-06] MEDS: TOPROL XL 25 MG PO (18:36)
[2024-10-06] MEDS: PULMICORT 0.5 MG INH (19:16)
[2024-10-06] MEDS: DUONEB 3 ML INH (19:16)
--- NOTE | 2024-10-06 19:22 | PTCARENOTE ---
Recieved PT from [facility] transfer; AAOx4 w/o complaints of pain, VSS; RA clear lung sounds; GI and WNL PIVx1 wnl; R groin surgical puncture CDI; see work list for detailed assessment
--- NOTE | 2024-10-06 20:15 | PTCARENOTE ---
Assumed care of patient at change of shift. Tele monitor shows NSR w/ occasional PACs/PVCs. HR in the 60-70's at rest. Pt denies any pain or discomfort at this time. Right groin dressing intact. Patient ambulates self in room w/out difficulty,
denies any dizziness. Patient and daughter aware of POC for tomorrow. Call velazquez within reach.
[2024-10-07] VITALS (7 sets, daily range): BP systolic 106–143; BP diastolic 65–96; BMI 19.6
[2024-10-07 03:52] LABS: Hematocrit 34.0 % (37.0-47.0); Hemoglobin 11.7 g/dL (12.0-16.0); Mean Corp Hgb Conc. 34.4 g/dL (33.0-37.0); Mean Corpuscular Volume 91.6 fL (81.0-99.0); Platelet Count 246 10^3/uL (130-400); Red Cell Dist. Width 13.4 % (11.5-14.5)
[2024-10-07 04:02] LABS: INR 0.96; PT 13.1 Sec (11.4-14.6)
[2024-10-07 04:03] LABS: APTT 26.8 Sec (23.4-35.0)
[2024-10-07 04:14] LABS: ALT (SGPT) 21 U/L (0-35); AST (SGOT) 30 U/L (14-36); Albumin 3.6 g/dl (3.5-5.0); Alkaline Phosphatase 73 U/L (38-126); Blood Urea Nitrogen 20 mg/dl (7-17); Calcium 9.2 mg/dl (8.4-10.2); Carbon Dioxide 22 mmol/L (22-30); Chloride 107 mmol/L (98-107); Estimated Creatinine Clearance 40 ml/min; Glucose 80 mg/dl (70-99); Magnesium 1.9 mg/dl (1.6-2.3); Potassium 4.2 mmol/L (3.5-5.1); Sodium 135 mmol/L (135-145); Total Protein 6.2 g/dl (6.3-8.2); eGFR > 60.00
[2024-10-07] MEDS: DUONEB INH (07:16)
[2024-10-07] MEDS: PULMICORT INH (07:17)
[2024-10-07 07:49] LABS: Urine Character Clear (Clear)
[2024-10-07 08:07] LABS: Urine Urothelial Cell 0-2 /LPF (FEW)
[2024-10-07 09:00] LABS: Glycohemoglobin (HgbA1c) 5.1 % (4.0-5.6)
--- NOTE | 2024-10-07 09:21 | W.PN.CT ---
Today's Communication / Plan
-
Awaiting films, workup ongoing.
Assessment / Plan
-
Workup ongoing for possible CABG versus PCI. Awaiting Food Counselor films, will share with interventional cardiology as well when available
Subjective
-
Date of Service: October 07, 2024
No complaints of shortness of breath or chest pain, currently getting a nebulizer treatment. She has had her vein mapping (both GSVs intact), carotid ultrasound and CT chest this morning. Bedside PFT was also completed which shows severe COPD, FEV1
is 39%/ 0.73L. We are still awaiting Food Counselor films from [facility].
Objective Data
-
Lab Results
10/07/24 03:40
10/07/24 03:40
PT 13.1 Sec (11.4-14.6) 10/07/24 03:40
INR 0.96 10/07/24 03:40
APTT 26.8 Sec (23.4-35.0) 10/07/24 03:40
Vital Signs
Vital Signs
Temp Pulse Resp BP Pulse Ox
97.6 F 66 16 131/87 93
10/07/24 07:24 10/07/24 07:24 10/07/24 07:24 10/07/24 03:32 10/07/24 07:24
CT Intake/Output/Weight
10/06/24 10/07/24 10/07/24
18:59 06:59 18:59
Intake Total 240 / 240
Balance 240 / 240
SaO2: 93
Physical Exam
-
General: AOx3
Cardiovascular: Regular rate & rhythm
Respiratory: Clear
Extremities: No Edema
Data Reviewed
-
Lab Results: Results Reviewed
Medications: Active Meds Reviewed
Chest X-Ray: Report Reviewed and Image Reviewed
CT Scan: Report Reviewed and Image Reviewed
[2024-10-07] MEDS: COZAAR 25 MG PO (09:24)
[2024-10-07] MEDS: URSO 750 MG PO (09:25)
[2024-10-07] MEDS: ALDACTONE 25 MG PO (09:26)
[2024-10-07] MEDS: TOPROL XL 25 MG PO ×2 (09:26→19:38)
[2024-10-07] MEDS: LOW STRENGTH ASPIRIN 81 MG PO (09:26)
[2024-10-07] MEDS: LASIX 20 MG PO (09:26)
[2024-10-07] MEDS: OSCAL 500 + D 600 MG PO (09:26)
[2024-10-07] MEDS: VENTOLIN NEBULES 2.5 MG INH (09:39)
--- NOTE | 2024-10-07 12:48 | CON.CAR ---
Addendum entered and electronically signed by Aisha Parsons DO 10/07/24 18:08:
I saw and examined the patient.
The Hand Welt Butter's note was reviewed and I agree with the note.
Comment: Patient seen and examined. at bedside. Patient is a 79 yo F with PMH of COPD with admission to [facility] for exacerbation requiring intubation 08/2024, chronic heart failure with reduced EF 40 to 45%, carotid stenosis, PAD with prior
left femoropopliteal bypass and L common iliac stenting, hypertension, type 2 diabetes. She had recently been struggling with worsening shortness of breath and underwent elective cardiac catheterization at [facility] by Dr. Murillo on
10/06/2024 and was found to have multivessel coronary disease and therefore transferred to [facility] for CABG evaluation. She is chronically on Xarelto 2.5mg BID for PAD as an outpatient with last dose 10/03/24. She denies chest pain or
pressure. Shortness of breath is stable. No dizziness or lightheadedness. Her outpatient psychology associate is Dr. Regalado. Her milieu coordinator is Dr. Shawna Lorenzo
General: No acute distress, AAOX3
Heart: Regular, positive S1/S2, No murmur
Lungs: Bronchovesicular breath sounds decreased bilaterally. No wheezes or rhonchi
Abd: Positive BS, NT/ND, neg rebound/rigidity/guarding
Ext: No edema
Neuro: nonfocal
Plan:
Medically complex 79-year-old female with severe COPD, history of hypertension, hyperlipidemia and type 2 diabetes mellitus with significant vascular disease including carotid stenosis and PAD with prior left common iliac stenting and left
femoral-popliteal bypass recently found to have three-vessel coronary artery disease at outside hospital catheterization
- She was transferred from [facility] 10/06/2024 for evaluation of CABG versus PCI
-Hemodynamically stable with no chest pain
- Awaiting review of cath films and multidisciplinary discussion regarding best option
- Preoperative evaluation as per CT surgery
- Check 2D echocardiogram
- Continue medical therapy: Aspirin, Toprol, Cozaar, Aldactone, Lasix. Patient is on Repatha as an outpatient for management of hyperlipidemia.
Original Note:
Consultation
Consultation Request
Date/Time Consultation Performed: 10/07/24
Requesting Provider: Dr. Matute
Performing Provider: Nakia Cole PA-C for Dr. Parsons
Reason for Consultation: MV CAD
Medical History
-
Chief Complaint: SOB
History of Present Illness:
Patient is a 79 yo F with PMH of COPD with admission to [facility] for exacerbation requiring intubation 08/2024, chronic heart failure with reduced EF 40 to 45%, carotid stenosis, PAD with prior left femoropopliteal bypass and L common iliac stenting,
hypertension, type 2 diabetes. She had recently been struggling with worsening shortness of breath and underwent elective cardiac catheterization at [facility] by Dr. Murillo on 10/06/2024 and was found to have multivessel coronary disease
and therefore transferred to [facility] for CABG evaluation. Without current shortness of breath or chest discomfort. She is chronically on Xarelto 2.5mg BID for PAD as an outpatient with last dose 10/03/24.
PMH:
COPD with admission to [facility] for exacerbation requiring intubation 08/2024
Chronic HFrEF
Cardiomyopathy, EF 40-45%
Carotid stenosis
PAD s/p left common iliac stenting and left femoral-popliteal bypass
Hypertension
HLD
Type 2 diabetes
Temporal arteritis
Past Medical History
Past Medical History: Other (in HPI)
Social History
Tobacco: Former Smoker
Alcohol: None
Personal:
Living: With Family
Employment: Retired
Allergies / Home Medications
Allergy/AdvReac Type Severity Reaction Status Date / Time
No Known Allergies Allergy Verified 09/01/24 21:26
�Medication �Instructions �Recorded �Confirmed �Type
aspirin 81 mg chewable tablet 81 mg PO DAILY #90 tabs 10/24/22 10/07/24 Rx
calcium 600 mg (as 1 tab PO DAILY 09/02/24 10/07/24 History
carbonate)-vitamin D3 5 mcg (200
unit) tablet
evolocumab 140 mg/mL subcutaneous 140 mg SC Q2W 09/02/24 10/07/24 History
syringe (Repatha Syringe)
furosemide 20 mg tablet 20 mg PO DAILY 09/02/24 10/07/24 History
metoprolol succinate 25 mg 25 mg PO BID 09/02/24 10/07/24 History
tablet,extended release 24 hr
multivitamin 1 tab PO DAILY 09/02/24 10/07/24 History
rivaroxaban 2.5 mg tablet 2.5 mg PO BID Blood Clot 09/02/24 10/07/24 History
Prevention/Tx
tiotropium 2.5 mcg-olodaterol 2.5 2 puff inhalation DAILY 09/02/24 09/02/24 History
mcg/actuation mist for inhalation
(Stiolto Respimat)
ursodiol 250 mg tablet 750 mg PO DAILY 09/02/24 10/07/24 History
albuterol sulfate 2.5 mg/3 mL 2.5 mg (3 mL) inhalation R Q4HPRN 09/03/24 Rx
(0.083 %) solution for nebulization PRN SOB #75 mL
albuterol sulfate 90 mcg/actuation 2 puff inhalation PRN shortness of 09/03/24 Rx
aerosol inhaler breath #8.5 grams
cefdinir 300 mg capsule 300 mg PO BID #10 caps 09/03/24 Rx
doxycycline monohydrate 100 mg 100 mg PO BID #10 caps 09/03/24 Rx
capsule
fluticasone fur. 200 mcg-umeclid 1 inh inhalation DAILY #60 ea 09/03/24 Rx
62.5 mcg-vilant 25 mcg
inhalat.powder (Trelegy Ellipta)
prednisone 10 mg tablet 10 mg PO DIRECTED #24 tabs 09/03/24 Rx
losartan 25 mg tablet 25 mg PO DAILY 10/06/24 10/06/24 History
spironolactone 25 mg tablet 25 mg PO DAILY 10/06/24 10/06/24 History
Review of Systems
-
History Source: Patient
All other systems: Negative unless noted
Physical Exam
Vital Signs
Temp Pulse Resp BP Pulse Ox
97.7 F 73 15 143/96 99
10/07/24 11:23 10/07/24 11:24 10/07/24 11:23 10/07/24 11:24 10/07/24 11:24
Lab Results
10/07/24 03:40
10/07/24 03:40
Physical Exam
General: No Apparent Distress and Comfortable
HEENT: Normocephalic, Anicteric and Moist Mucous Membranes
Respiratory: Clear and Non Labored Respirations
Cardiac: S1/S2 and Regular Rhythm
GI: Soft, Non Tender, Non Distended and Normal Bowel Sounds
Musculoskeletal: No Clubbing, No Cyanosis and No Edema
Skin: Warm and Dry
Neuro: AO x 3
Impression / Plan
-
Primary Formula Technician: Dr. Regalado
Assessment:
LAM
MV CAD including L main disease by cath at [facility] 10/06/24
COPD with admission to [facility] for exacerbation requiring intubation 08/2024, on CPAP
Chronic HFrEF
Cardiomyopathy, EF 40-45%
Carotid stenosis
PAD s/p left common iliac stenting and left femoral-popliteal bypass, on chronic xarelto
Hypertension
HLD
Type 2 diabetes
Temporal arteritis
ECHO 09/02/24: Global hypokinesis, EF 40 to 45%, mild concentric LVH, stage II diastolic dysfunction, mild to moderate MR, mild TR, PAP 43 mm
ECHO 10/07/24: pending
Plan:
- Patient was transferred from [facility] on 10/06/2024 for CABG evaluation after had an elective cardiac catheterization 10/06/2024 showing multivessel CAD including left main disease. She also has known PAD, COPD with a recent admission
requiring intubation 08/2024, chronic heart failure, and cardiomyopathy with EF 40 to 45%.
- Preop evaluation underway by CT surgery. awaiting films from [facility] for review
- echo pending. last from 08/2024 as above
- No current complaints
- EKG SR with fusion complexes and lateral T wave inversions
- chest CT with severe calcific plaque in coronary arteries, thoracic aorta, both subclavian arteries, abdominal aorta, proximal superior mesenteric artery, and minimal bilateral pleural effusions noted
- continue to hold xarelto
- continue asa, Toprol, Cozaar, Aldactone.
- Continue Lasix 20 mg daily
- on repatha as OP
- d/w CT surgery, nursing
Data Reviewed
-
EKG: Tracing Personally Visualized and interpreted
CT Scan: Report Reviewed by me
Medical Tests (Nuc Med, Echo etc): Report Reviewed by me
Labs: Labs Reviewed by me
Old Records: Reviewed
[2024-10-07] MEDS: DUONEB 3 ML INH ×2 (13:12→19:07)
--- NOTE | 2024-10-07 14:18 | CM ---
Reviewed chart. Met with Mrs. Alvarado to review discharge plans. She states prior to admission she resides with her spouse, daughter, son-in-law and grandchildren in a two story home with five steps to enter. She states she has a bedroom/full
bathroom on the first floor. She states prior to admission she was independent with ambulation and adls. She states she has had [facility] int he past. She states she has a IPAP Machine at home. She states she has a prescription plan.
Medical work-up in progress. The discharge plan is return home with her family and [facility] if indicated when medically stable.
--- NOTE | 2024-10-07 18:52 | PTCARENOTE ---
~[id number]: Handoff report received from nightshift RN. Pt AOx4, NSR 1st degree AVB 70s-80s, SBP 140s, RA satting 99%. Pt denies pain at this time. Independent in room. Patient underwent multile pre-op testing this morning including PFT, vascular
US, cerebrovascular US, and chest CT. Urine sample also collected and sent to lab. All needs met at this time, call velazquez within reach.
~[id number]: Patient resting in bed. Family at bedside. Pt does not c/o pain at this time. VSS at this time. All needs met, call velazquez within reach.
~[id number]: VSS, Patient resting in bed. No c/o pain at this time. All needs met, call velazquez within reach. Handoff report given to nightshift RN.
[2024-10-07] MEDS: PULMICORT 0.5 MG INH (19:07)
--- NOTE | 2024-10-07 19:48 | PTCARENOTE ---
Assumed care of the pt @ 1900. Pt is AAOx3 SR with PAC's on the monitor VSS. Denies pain. Pt ambulates independently in the room. Call velazquez within reach.
[2024-10-08] VITALS (7 sets, daily range): BP systolic 110–128; BP diastolic 62–88; BMI 19.3
[2024-10-08] MEDS: DUONEB 3 ML INH ×3 (08:12→18:04)
[2024-10-08] MEDS: PULMICORT 0.5 MG INH ×2 (08:12→18:04)
[2024-10-08] MEDS: URSO 750 MG PO (08:14)
[2024-10-08] MEDS: TOPROL XL 25 MG PO ×2 (08:15→20:03)
[2024-10-08] MEDS: COZAAR 25 MG PO (08:15)
[2024-10-08] MEDS: LOW STRENGTH ASPIRIN 81 MG PO (08:15)
[2024-10-08] MEDS: LASIX 20 MG PO (08:15)
[2024-10-08] MEDS: ALDACTONE 25 MG PO (08:17)
--- NOTE | 2024-10-08 10:17 | CM ---
Reviewed chart. Met with Mrs. Alvarado to review discharge plans. We reviewed Advanced directive/living will. She states she has the forms but just has not completed yet. Reviewed our forms and gave her the Advanced Directive form. Prior to
admission she resides with her spouse , daughter, son-in-law and grandchildren in a two story home with five steps to enter. Her bedroom/full bathroom is on the first floor. Prior to admission she was independent with ambulation and adls. She has
a IPAP Machine at home and no other DME in the home. She has had [facility] in the past. She has a prescription plan. Medical work-up in progress. The discharge plan is to return home with her family when medically stable.
--- NOTE | 2024-10-08 11:29 | PTCARENOTE ---
Pt received this am with no c/o of any chest pain or sob. Room air sat 98%. SR, rate in the 60's to 70's. No c/o offered.
--- NOTE | 2024-10-08 13:05 | W.PN.UPDATE ---
Addendum entered and electronically signed by Lucas Matute MD 10/08/24 15:02:
CARDIAC SURGERY ATTENDING:
It was my pleasure to meet and evaluate Mrs. Kristina Alvarado. She was sent to our institution given a recent diagnosis of multivessel CAD on elective cath for increasing shortness of breath. She denies any current resting shortness of breath or
chest pain. She appears nontoxic, but is somewhat frail in appearance. She has a significant past medical history with numerous comorbidities that make any operative intervention high to prohibitive risk. She has significant COPD with an FEV1 of
0.73 (39% predicted) that improved to 0.92 after bronchodilator therapy. Her FVC was 1.62 (67%). On September 01, 2024 she had a recent COPD exacerbation with hypoxemia and presented to the emergency room in distress requiring emergency room intubation
she was treated with steroids and antibiotics and was rapidly extubated approximately 12 hours later. She was discharged to home on September 03, 2024 with steroid taper, antibiotics, and nebulizers. She was also treated for a gram-negative UTI at that
time. In addition to her COPD she also has an extensive peripheral vascular disease history with prior left femoropopliteal bypass and, left common iliac stenting. Her noncontrast CT chest demonstrates extensive aortic calcifications, although her
ascending aorta is relatively spared. Carotid ultrasound assessment shows calcified plaques throughout both common carotid arteries and retrograde flow within her right vertebral artery. Her left carotid bulb has 50 to 69% stenosis based on
velocities and her right has less than 50% stenosis.
I do not believe she will do well with surgical coronary revascularization. I have asked my interventional cardiology colleagues to evaluate this patient for the potential for PCI/stenting. Unfortunately, this modality to address her CAD is also
not straightforward. I have ordered a CTA of her abdomen pelvis to further assess her vascular anatomy. I have asked my surgical colleague, Dr. Arvind Calderon, to also comment on her case. I believe the STS risk as calculated below is fairly
reflective of her true operative risks. I would offer emergent surgical backup for PCI if the patient is agreeable and has a good understanding of the risks and postoperative recovery.
Thank you. Please call with any questions or concerns.
Lucas Matute MD
[phone]
Original Note:
Update Note
Progress Note Update
STS RISK SCORE
Procedure Type:�Isolated CABG
Perioperative Outcome Estimate %
Operative Mortality 7.71%
Morbidity & Mortality 16.1%
Stroke 1.97%
Renal Failure 3.18%
Reoperation 3.99%
Prolonged Ventilation 7.63%
Deep Sternal Wound Infection 0.243%
Long Hospital Stay (>14 days) 11.6%
Short Hospital Stay (<6 days)* 21.1%
Clinical Summary
Planned Surgery: Isolated CABG, Urgent, First cardiovascular surgery
Demographics: 79 year old, female, 47.9kg, 157cm, BMI: 19.4 kg/m�
Lab Values: Creatinine: 0.9 mg/dL, Hematocrit: 34%, WBC Count: 5.2 10�/�L, Platelet Count: 509815 cells/�L
Substance Abuse: Former smoker
Risk Factors / Comorbidities: Hypertension, Immunocompromised (steroid inhaler)
Pulmonary RF: Severe CLD
Vascular RF: Cerebrovascular Disease: Other CVD, Peripheral Artery Disease
Cardiac Status: NYHA Class II, Ejection Fraction = 54%
Coronary Artery Disease: 3 vessels diseased, Angina equivalent
Valve Disease: Trivial/Trace AR, Moderate MR, Mild TR
--- NOTE | 2024-10-08 14:00 | W.PN.CARDCBS ---
Addendum entered and electronically signed by iDmitri Slater MD 10/08/24 16:56:
I saw and examined the patient on morning rounds.
The Faculty Physician's note was reviewed and I agree with the note.
Comment: Briefly, 79-year-old woman with heart failure with recovered ejection fraction, COPD and newly identified multivessel CAD by coronary angiography at [facility] on 10/06/2024. She was subsequently transferred to [place] for
evaluation of surgical revascularization.
At the time my evaluation she was resting comfortably in bed and had no cardiac complaints including no chest discomfort or dyspnea
For now would continue aspirin, metoprolol and PCSK9 inhibitor for treatment of CAD
Ongoing discussion between CT surgery and interventional cardiology regarding options for revascularization
Overall she appears euvolemic on exam
EF recovered based on echo done here and is now low normal
Continue metoprolol, losartan, spironolactone and oral Lasix
Discussed with patient's at bedside
Original Note:
Today's Communication / Plan
-
Interdisciplinary discussions between interventional cardiology and CT surgery ongoing regarding best treatment options for multivessel coronary disease
Continue aspirin, Toprol, Cozaar, Aldactone, Lasix
Impression / Plan
-
Primary Repair Specialist: Dr. Regalado
Assessment:
LAM
MV CAD including L main disease by cath at [facility] 10/06/24
COPD with admission to [facility] for exacerbation requiring intubation 08/2024, on CPAP
Chronic HFrEF
Cardiomyopathy, EF 40-45%
Carotid stenosis
PAD s/p left common iliac stenting and left femoral-popliteal bypass, on chronic xarelto
Hypertension
HLD
Type 2 diabetes
Temporal arteritis
ECHO 09/02/24: Global hypokinesis, EF 40 to 45%, mild concentric LVH, stage II diastolic dysfunction, mild to moderate MR, mild TR, PAP 43 mm
ECHO 10/07/24: EF 54%, mild to moderate MR, mild TR, PAP 39 mmHg
Plan:
- Patient was transferred from [facility] on 10/06/2024 for CABG evaluation after had an elective cardiac catheterization 10/06/2024 showing multivessel CAD including left main disease. She also has known PAD, COPD with a recent admission
requiring intubation 08/2024, chronic heart failure, and cardiomyopathy with EF 40 to 45%.
-felt to be high risk for CABG given significant COPD. also not felt to have great PCI targets. chest CT with severe calcific plaque in coronary arteries, thoracic aorta, both subclavian arteries, abdominal aorta, proximal superior mesenteric
artery. ongoing interdisciplinary discussions between IC and CT surgery.
- Echo with normal EF and mild to moderate MR
- Telemetry sinus rhythm with PVCs, couplets, triplets. Potassium stable. Continue Toprol
- continue to hold xarelto. Continue aspirin
- continue lasix, Toprol, Cozaar, Aldactone.
- on repatha as OP
- d/w CT surgery, IC
Progress Note - Repair Specialist
Subjective
Date of Service: October 08, 2024
no complaints of CP, SOB, palpitations
Objective
Labs:
10/07/24 03:40
10/07/24 03:40
Labs
Hgb 11.7 g/dL (12.0-16.0) L 10/07/24 03:40
Hct 34.0 % (37.0-47.0) L 10/07/24 03:40
Plt Count 246 10^3/uL (130-400) 10/07/24 03:40
PT 13.1 Sec (11.4-14.6) 10/07/24 03:40
INR 0.96 10/07/24 03:40
APTT 26.8 Sec (23.4-35.0) 10/07/24 03:40
Sodium 135 mmol/L (135-145) 10/07/24 03:40
Potassium 4.2 mmol/L (3.5-5.1) 10/07/24 03:40
BUN 20 mg/dl (7-17) H 10/07/24 03:40
Creatinine 0.9 mg/dL (0.6-1.0) 10/07/24 03:40
Glucose 80 mg/dl (70-99) 10/07/24 03:40
Vital Signs and I&O:
Vital Signs
Temp Pulse Resp BP Pulse Ox
98 F 72 16 128/71 99
10/08/24 12:06 10/08/24 13:33 10/08/24 13:33 10/08/24 07:21 10/08/24 12:06
Vital Signs
Temp Pulse Resp BP Pulse Ox
98 F 72 16 128/71 99
10/08/24 12:06 10/08/24 13:33 10/08/24 13:33 10/08/24 07:21 10/08/24 12:06
Intake & Output
10/06/24 10/07/24 10/08/24 10/09/24
07:59 07:59 07:59 07:59
Intake Total 240 / 240
Balance 240 / 240
Physical Exam
Physical Exam
GEN: No distress, awake, alert, oriented x3
HEENT: supple, anicteric, mmm, eomi
LUNGS: CTA B/L, no wheezes
CV: Reg, S1/S2, no murmur
ABD: soft, BS+, NT/ND
EXT: No cyanosis, clubbing, edema
NEURO: Gross non-focal
SKIN: Warm, pink, dry. No rash
[2024-10-08 21:20] LABS: Hematocrit 34.1 % (37.0-47.0); Hemoglobin 11.7 g/dL (12.0-16.0); Mean Corp Hgb Conc. 34.3 g/dL (33.0-37.0); Mean Corpuscular Volume 90.0 fL (81.0-99.0); Platelet Count 249 10^3/uL (130-400); Red Cell Dist. Width 13.6 % (11.5-14.5)
[2024-10-08 21:55] LABS: Blood Urea Nitrogen 22 mg/dl (7-17); Calcium 9.4 mg/dl (8.4-10.2); Carbon Dioxide 23 mmol/L (22-30); Chloride 100 mmol/L (98-107); Estimated Creatinine Clearance 29 ml/min; Glucose 111 mg/dl (70-99); Magnesium 1.9 mg/dl (1.6-2.3); Potassium 4.1 mmol/L (3.5-5.1); Sodium 129 mmol/L (135-145); eGFR 46.33
[2024-10-08] MEDS: MAGNESIUM SULFATE 102 GRAMS IV (22:30)
--- NOTE | 2024-10-08 22:57 | W.PN.UPDATE ---
Update Note
Progress Note Update
-@ 9:10 pm pt was noted to have 3-5 beat NSVT runs. She is awake in bed and completely asymptomatic, denies feeling palpitations or dizziness. BP 127/75, pOx 98% on RA, nsr 72 with PACs and PVCs.
-reviewed tele strips with Dr. Carter - recommended iv Amio if has more arrhythmia or becomes symptomatic.
-checked labs: K 4.1, Mg 1.9, Cr increased from 0.9 to 1.2 and Na decreased from 135 to 129.
-gave 1 gram iv Mg (careful with Mg d/t worsening renal fxn). Started fluid restriction 1200 cc. Held Cozaar and Aldactone. Will check am BMP and Mg
-new peripheral IV placed in case requires iv Amio. Will monitor closely
[2024-10-09] VITALS (9 sets, daily range): BP systolic 107–146; BP diastolic 63–95; BMI 19.3
[2024-10-09] MEDS: CORDARONE 103 MG IV (00:45)
--- NOTE | 2024-10-09 01:26 | PTCARENOTE ---
Assumed care of the pt @ 1900. Pt is AAOx3 SR with PAC's and PVC's on the monitor with several 3-5 beat runs of NSVT asymptomatic. Stat labs sent 1 gm Mag given followed by 150 mg IV bolus Amio. POC discussed with pt. Call velazquez within reach.
[2024-10-09 04:33] LABS: Blood Urea Nitrogen 19 mg/dl (7-17); Calcium 9.5 mg/dl (8.4-10.2); Carbon Dioxide 26 mmol/L (22-30); Chloride 104 mmol/L (98-107); Estimated Creatinine Clearance 32 ml/min; Glucose 97 mg/dl (70-99); Magnesium 2.4 mg/dl (1.6-2.3); Potassium 4.2 mmol/L (3.5-5.1); Sodium 133 mmol/L (135-145); eGFR 51.43
[2024-10-09] MEDS: TOPROL XL 25 MG PO (07:53)
[2024-10-09] MEDS: LASIX 20 MG PO (07:53)
[2024-10-09] MEDS: URSO 750 MG PO (07:53)
[2024-10-09] MEDS: LOW STRENGTH ASPIRIN 81 MG PO (07:53)
[2024-10-09] MEDS: DUONEB 3 ML INH ×3 (07:56→18:19)
[2024-10-09] MEDS: PULMICORT 0.5 MG INH ×2 (07:56→18:19)
--- NOTE | 2024-10-09 08:55 | W.PN.CT ---
Today's Communication / Plan
-
-brief 3-5 beat runs of NSVT overnight - asymptomatic, gave low-dose iv Mag and Amio bolus
-hyponatremia - started fluid restriction
-Cr trended up from 0.9 to 1.2 on 10/08 - Cr 1.1 today . Held Cozaar and Aldactone.
-s/p abdomen/pelvis CTA on 10/08
-Ongoing discussion between CT surgery and interventional cardiology regarding options for revascularization
Assessment / Plan
-
-LAM
-NSVTs 3-5 beats
-MV CAD including L main disease by cath at [facility] 10/06/24
-COPD with admission to [facility] for exacerbation requiring intubation 08/2024, on CPAP
-Chronic HFrEF
-Cardiomyopathy, EF 40-45%
-Carotid stenosis
-PAD s/p left common iliac stenting and left femoral-popliteal bypass, on chronic Xarelto (last dose 10/03/24)
-Hypertension
-HLD
-Type 2 diabetes
-Temporal arteritis
-Fatty liver
-Former tobacco, quit 10 yrs ago
-Hyponatremia/RIO
-ECHO 09/02/24: Global hypokinesis, EF 40 to 45%, mild concentric LVH, stage II diastolic dysfunction, mild to moderate MR, mild TR, PAP 43 mm
-ECHO 10/07/24: EF 54%, mild to moderate MR, mild TR, PAP 39 mmHg
Discussed patient care with: Nursing and Care Team
Subjective
-
Date of Service: October 09, 2024
Objective Data
-
Lab Results
10/08/24 21:06
10/09/24 03:46
PT 13.1 Sec (11.4-14.6) 10/07/24 03:40
INR 0.96 10/07/24 03:40
APTT 26.8 Sec (23.4-35.0) 10/07/24 03:40
Vital Signs
Vital Signs
Temp Pulse Resp BP Pulse Ox
98.5 F 71 14 119/66 96
10/09/24 07:52 10/09/24 07:59 10/09/24 07:59 10/09/24 07:50 10/09/24 07:59
SaO2: 96
Physical Exam
-
General: Awake and AOx3
Cardiovascular: Regular rate & rhythm, No Murmurs and No Rub
Respiratory: Decreased Breath Sounds
Extremities: No Edema
Abdomen: soft, nontender, nondistended, + bowel sounds
Data Reviewed
-
Lab Results: Results Reviewed
Medications: Active Meds Reviewed
Chest X-Ray: Report Reviewed and Image Reviewed
CT Scan: Report Reviewed
ECG: Report Reviewed and Image Reviewed
--- NOTE | 2024-10-09 12:12 | CM ---
Reviewed chart. Met with and Mrs. Alvarado to review discharge plans. She states she is still waiting for the medical team recommendations. Prior to admission she resides with her spouse , daughter, son-in-law and grandchildren in a two story
home with five steps to enter. Her bedroom/full bathroom is on the first floor. Prior to admission she was independent with ambulation and adls. She has a IPAP Machine at home and no other DME in the home. She has had [facility] in the past.
She has a prescription plan. Medical work-up in progress. The discharge plan is to return home with her family when medically stable.
--- NOTE | 2024-10-09 12:27 | PTCARENOTE ---
Rec'd pt at handoff. Tele- SR w/ kerry. PVCs. HR 70-80s. Pt has no complaints pain/discomfort/sob at this time. Assessment completed as documented. Plan of care reviewed w/ pt and verbalizes understanding. Call caroline w/in reach.
--- NOTE | 2024-10-09 13:11 | W.PN.CARDCBS ---
Addendum entered and electronically signed by Dimitri Slater MD 10/09/24 17:02:
I saw and examined the patient on morning rounds.
The [employer]'s note was reviewed and I agree with the note.
Comment: Briefly, 79-year-old woman with heart failure with recovered ejection fraction, COPD and newly identified multivessel CAD by coronary angiography at [facility] on 10/06/2024. She was subsequently transferred to [place] for
evaluation of surgical revascularization.
Episodes avoid complex tachycardia seen on telemetry overnight
Appears to me that this is atrial tachycardia with aberrant conduction
Would start by uptitrating metoprolol and continuing to monitor on telemetry overnight
In regards to her multivessel CAD would continue aspirin, metoprolol and PCSK9 inhibitor
Ongoing discussion between CT surgery and interventional cardiology regarding options for revascularization
Overall she appears euvolemic on exam
EF recovered based on echo done here and is now low normal
Continue metoprolol, losartan, spironolactone and oral Lasix
Discussed with patient's at bedside
Original Note:
Today's Communication / Plan
-
Ongoing discussions between CT surgery and interventional cardiology regarding best treatment option
follow on telemetry. uptitrate BB as BP allows
Fluid restriction changed to 50 ounces daily
Impression / Plan
-
Primary [employer] Hazmat Driver: Dr. Regalado
Assessment:
LAM
MV CAD including L main disease by cath at [facility] 10/06/24
COPD with admission to [facility] for exacerbation requiring intubation 08/2024, on CPAP
Chronic HFrEF
Cardiomyopathy, EF 40-45%
Carotid stenosis
PAD s/p left common iliac stenting and left femoral-popliteal bypass, on chronic xarelto
Hypertension
HLD
Type 2 diabetes
Temporal arteritis
ECHO 09/02/24: Global hypokinesis, EF 40 to 45%, mild concentric LVH, stage II diastolic dysfunction, mild to moderate MR, mild TR, PAP 43 mm
ECHO 10/07/24: EF 54%, mild to moderate MR, mild TR, PAP 39 mmHg
Plan:
- Patient was transferred from [facility] on 10/06/2024 for CABG evaluation after had an elective cardiac catheterization 10/06/2024 showing multivessel CAD including left main disease. She also has known PAD, COPD with a recent admission
requiring intubation 08/2024, chronic heart failure, and cardiomyopathy with EF 40 to 45%.
-felt to be high risk for CABG given significant COPD. also not felt to have great PCI targets. chest CT with severe calcific plaque in coronary arteries, thoracic aorta, both subclavian arteries, abdominal aorta, proximal superior mesenteric
artery. ongoing interdisciplinary discussions between IC and CT surgery.
- Echo with normal EF and mild to moderate MR
- Telemetry sinus rhythm with frequent ectopy, suspected PACs with aberrancy, patient asymptomatic. was given IV amio bolus and magnesium overnight. continue BB, uptitrate as BP allows
- continue to hold xarelto. Continue aspirin
- continue lasix, Toprol, Cozaar, Aldactone.
- liberalize fluid slightly as patient with hoarseness and Cr up to 1.1.
- on repatha as OP
- d/w CT surgery. d/w nursing via TT
Progress Note - [employer] Hazmat Driver
Subjective
Date of Service: October 09, 2024
Reports feeling hoarse.
Objective
Labs:
10/08/24 21:06
10/09/24 03:46
Labs
Hgb 11.7 g/dL (12.0-16.0) L 10/08/24 21:06
Hct 34.1 % (37.0-47.0) L 10/08/24 21:06
Plt Count 249 10^3/uL (130-400) 10/08/24 21:06
PT 13.1 Sec (11.4-14.6) 10/07/24 03:40
INR 0.96 10/07/24 03:40
APTT 26.8 Sec (23.4-35.0) 10/07/24 03:40
Sodium 133 mmol/L (135-145) L 10/09/24 03:46
Potassium 4.2 mmol/L (3.5-5.1) 10/09/24 03:46
BUN 19 mg/dl (7-17) H 10/09/24 03:46
Creatinine 1.1 mg/dL (0.6-1.0) H 10/09/24 03:46
Glucose 97 mg/dl (70-99) 10/09/24 03:46
Vital Signs and I&O:
Vital Signs
Temp Pulse Resp BP Pulse Ox
98.1 F 72 18 128/84 96
10/09/24 12:06 10/09/24 12:06 10/09/24 12:06 10/09/24 12:06 10/09/24 09:02
Vital Signs
Temp Pulse Resp BP Pulse Ox
98.1 F 72 18 128/84 96
10/09/24 12:06 10/09/24 12:06 10/09/24 12:06 10/09/24 12:06 10/09/24 09:02
Intake & Output
10/07/24 10/08/24 10/09/24 10/10/24
07:59 07:59 07:59 07:59
Intake Total 240 / 240 400 / 400
Balance 240 / 240 400 / 400
Physical Exam
Physical Exam
GEN: No distress, awake, alert, oriented x3
HEENT: supple, anicteric, mmm, EOMI
LUNGS: CTA bilaterally, no wheezes/rales
CV: Reg, S1/S2, no murmur
ABD: soft, BS+, NT/ND
EXT: No cyanosis, clubbing, edema
NEURO: Gross non-focal
SKIN: Warm, pink, dry. No rash
--- NOTE | 2024-10-09 13:34 | W.PN.UPDATE ---
Update Note
Progress Note Update
I have reviewed the patient's chart and images. I agree that her STS is likely true and probably underestimated. Given her severe PAD, poor pulmonary status, would defer to interventional cardiology for high risk PCI if this is possible.
Thank you for involving me in the care of this patient. Please feel free to contact me with any questions or concerns.
Arvind Calderon MD, MS
Cardiothoracic Surgeon
[facility]
This dictation was created using the [employer] dictation system. Please excuse any grammatical, typographical, or 'sound alike' errors.
[2024-10-09] MEDS: TOPROL XL 37.5 MG PO (19:22)
[2024-10-10] VITALS (7 sets, daily range): BP systolic 101–143; BP diastolic 58–80; BMI 19.2
--- NOTE | 2024-10-10 03:33 | PTCARENOTE ---
Pt. has had no complaints chest pain /discomfort, VSS, NSR with frequent PVC's on the monitor. Resting quietly most of the night.
[2024-10-10 05:01] LABS: Blood Urea Nitrogen 19 mg/dl (7-17); Calcium 9.7 mg/dl (8.4-10.2); Carbon Dioxide 26 mmol/L (22-30); Chloride 104 mmol/L (98-107); Estimated Creatinine Clearance 35 ml/min; Glucose 92 mg/dl (70-99); Magnesium 2.2 mg/dl (1.6-2.3); Potassium 4.2 mmol/L (3.5-5.1); Sodium 135 mmol/L (135-145); eGFR 57.66
[2024-10-10] MEDS: COZAAR 25 MG PO (07:46)
[2024-10-10] MEDS: ALDACTONE 25 MG PO (07:46)
[2024-10-10] MEDS: LOW STRENGTH ASPIRIN 81 MG PO (07:46)
[2024-10-10] MEDS: TOPROL XL 37.5 MG PO ×2 (07:46→19:56)
[2024-10-10] MEDS: LASIX 20 MG PO (07:52)
[2024-10-10] MEDS: URSO 750 MG PO (07:52)
--- NOTE | 2024-10-10 08:12 | W.PN.CT ---
Today's Communication / Plan
-
-no issues overnight
-in nsr, PACs, PVCs. Appears less ectopy since uptitrating Toprol
-follow Cr and Na. On 50 oz fluid restriction
-current meds (ASA, Lasix 20 po qd, Toprol 37.5 bid, Cozaar, Aldactone)
-elevated risk for surgery given severe COPD and PAD. ? PCI if possible
-appreciate everyone's input
Assessment / Plan
-
-LAM
-suspected atrial tachycardia with aberrant conduction rather than NSVT- Toprol increased
-MV CAD including L main disease by cath at [facility] 10/06/24
-COPD with admission to [facility] for exacerbation requiring intubation 08/2024, on CPAP
-Chronic HFrEF
-Cardiomyopathy, EF 40-45%
-Carotid stenosis
-PAD s/p left common iliac stenting and left femoral-popliteal bypass, on chronic Xarelto (last dose 10/03/24)
-Hypertension
-HLD
-Type 2 diabetes
-Temporal arteritis
-Fatty liver
-Former tobacco, quit 10 yrs ago
-Hyponatremia/RIO
-ECHO 09/02/24: Global hypokinesis, EF 40 to 45%, mild concentric LVH, stage II diastolic dysfunction, mild to moderate MR, mild TR, PAP 43 mm
-ECHO 10/07/24: EF 54%, mild to moderate MR, mild TR, PAP 39 mmHg
Discussed patient care with: Nursing and Care Team
Subjective
-
Date of Service: October 10, 2024
Objective Data
-
Lab Results
10/08/24 21:06
PT 13.1 Sec (11.4-14.6) 10/07/24 03:40
INR 0.96 10/07/24 03:40
APTT 26.8 Sec (23.4-35.0) 10/07/24 03:40
Vital Signs
Vital Signs
Temp Pulse Resp BP Pulse Ox
98.1 F 79 18 146/95 100
10/09/24 22:21 10/09/24 22:20 10/09/24 22:21 10/09/24 22:20 10/09/24 22:21
CT Intake/Output/Weight
10/09/24 10/09/24 10/10/24
06:59 18:59 06:59
Intake Total 400 / 400
Balance 400 / 400
SaO2: 100
Physical Exam
-
General: Awake and AOx3
Cardiovascular: Regular rate & rhythm, No Murmurs and No Rub
Respiratory: Decreased Breath Sounds
Abdomen: soft, nontender, nondistended, + bowel sounds
Extremities: No Edema
Data Reviewed
-
Lab Results: Results Reviewed
Medications: Active Meds Reviewed
Chest X-Ray: Report Reviewed and Image Reviewed
ECG: Report Reviewed and Image Reviewed
[2024-10-10] MEDS: PULMICORT 0.5 MG INH (08:15)
[2024-10-10] MEDS: DUONEB 3 ML INH ×2 (08:15→13:43)
--- NOTE | 2024-10-10 10:44 | W.PN.CARDCBS ---
Addendum entered and electronically signed by Dimitri Slater MD 10/10/24 12:27:
I saw and examined the patient.
The Brake Repairer [employer]'s note was reviewed and I agree with the note.
Comment: Briefly, 79-year-old woman with heart failure with recovered ejection fraction, COPD and newly identified multivessel CAD by coronary angiography at [facility] on 10/06/2024. She was subsequently transferred to [place] for
evaluation of surgical revascularization.
Continues to have runs of wide complex tachycardia
Suspect this is atrial tachycardia with aberrant conduction
Continue higher dose of metoprolol and follow tele
In regards to her multivessel CAD would continue aspirin, metoprolol and PCSK9 inhibitor
To be too high risk to proceed with surgical revascularization
Spoke with interventional cardiology and tentative plan would be for percutaneous intervention early next week
Overall she appears euvolemic on exam
EF recovered based on echo done here and is now low normal
Continue metoprolol, losartan, spironolactone and oral Lasix
Discussed with patient's at bedside
Original Note:
Today's Communication / Plan
-
Discuss possible high risk PCI with IC, possibly early next week
Continue current medications
Impression / Plan
-
Primary Vice President [employer]: Dr. Regalado
Assessment:
Presented initially with LAM
MV CAD including L main disease by cath at [facility] 10/06/24
COPD with admission to [facility] for exacerbation requiring intubation 08/2024, on CPAP
Chronic HFmrEF
Cardiomyopathy, EF 40-45%
Carotid stenosis
PAD s/p left common iliac stenting and left femoral-popliteal bypass, on chronic xarelto
Hypertension
HLD
Type 2 diabetes
Temporal arteritis
Echo 09/02/2024: Global hypokinesis, EF 40 to 45%, mild concentric LVH, stage II diastolic dysfunction, mild to moderate MR, mild TR, PAP 43 mm
Echo 10/07/2024: EF 54%, mild to moderate MR, mild TR, PAP 39 mmHg
Plan:
-Transferred from [facility] 10/06/2024 for CABG evaluation after elective cath showed MV CAD including LM disease.
-She has known h/o PAD, COPD, chronic heart failure, and cardiomyopathy with EF previously as low as 40-45%.
-CT surgery evaluated and patient felt to be high risk for CABG given significant COPD. Also not felt to have great PCI targets, however high risk PCI felt to be better choice if possible per CT surgery.
-Continue conversations w/ IC and CT surgery.
-Echo 10/07 showed EF improved, now 54% with mild to moderate MR as noted above.
-Overall stable on telemetry. Continue Toprol 37.5mg BID.
-Xarelto on hold, continue aspirin alone.
-Continue lasix, spironolactone, and losartan. BP stable.
-On repatha as OP for HLD.
-Will continue to follow.
Progress Note - Vice President [employer]
Subjective
Date of Service: October 10, 2024
No complaints. Feels well
Objective
Labs:
10/08/24 21:06
10/10/24 04:08
Labs
Hgb 11.7 g/dL (12.0-16.0) L 10/08/24 21:06
Hct 34.1 % (37.0-47.0) L 10/08/24 21:06
Plt Count 249 10^3/uL (130-400) 10/08/24 21:06
PT 13.1 Sec (11.4-14.6) 10/07/24 03:40
INR 0.96 10/07/24 03:40
APTT 26.8 Sec (23.4-35.0) 10/07/24 03:40
Sodium 135 mmol/L (135-145) 10/10/24 04:08
Potassium 4.2 mmol/L (3.5-5.1) 10/10/24 04:08
BUN 19 mg/dl (7-17) H 10/10/24 04:08
Creatinine 1.0 mg/dL (0.6-1.0) 10/10/24 04:08
Glucose 92 mg/dl (70-99) 10/10/24 04:08
Vital Signs and I&O:
Vital Signs
Temp Pulse Resp BP Pulse Ox
97.4 F 68 16 129/74 97
10/10/24 07:01 10/10/24 08:17 10/10/24 08:17 10/10/24 07:01 10/10/24 08:17
Vital Signs
Temp Pulse Resp BP Pulse Ox
97.4 F 68 16 129/74 97
10/10/24 07:01 10/10/24 08:17 10/10/24 08:17 10/10/24 07:01 10/10/24 08:17
Intake & Output
10/08/24 10/09/24 10/10/24 10/11/24
06:59 06:59 06:59 06:59
Intake Total 640 / 640
Balance 640 / 640
Physical Exam
Physical Exam
GEN: No distress, awake, alert, oriented x3
HEENT: supple, anicteric, mmm
LUNGS: CTA bilaterally, no wheezes/rales
CV: Reg, S1/S2, no murmur
EXT: No cyanosis, clubbing, edema
NEURO: Gross non-focal
SKIN: Warm, pink, dry. No rash
--- NOTE | 2024-10-10 11:33 | CM ---
Reviewed chart. Met with Ms. Alvarado to review discharge plans. She states he is feeling well. She is still waiting for the medical team recommendations. Prior to admission she resides with her spouse , daughter, son-in-law and grandchildren in
a two story home with five steps to enter. Her bedroom/full bathroom is on the first floor. Prior to admission she was independent with ambulation and adls. She has a IPAP Machine at home and no other DME in the home. She has had [facility] in
the past. She has a prescription plan. Medical work-up in progress. The discharge plan is to return home with her family when medically stable.
--- NOTE | 2024-10-10 12:48 | CON.HOSP ---
Family Physician
-
Family Physician: NOT KNOW UNKNOWN - PT DOES
Chief Complaint
-
SOB
History of Present Illness
79yo F with PMHX of ROX, COPD, HLD, CAD, HFrEF, carotid stenosis, DM, PAD s/p L fem/popleteal bypass, L common iliac stent, HTN, recent admission to with COPD exacerbation and pneumonia, followed up with her store shopper upon d/c and had elective
cardiac cath on 10/06/24found multivessel CAD, transferred to for CABG eval, however deemed poor surgical candidate as per CTS evaluation, so planned for PCI by cardiology
No complains upon evaluation.
Medical History
Past Medical History
Past Medical History: Reports Other
Additional Past Medical History:
See HPI
Past Surgical History: Reports Other
Additional Past Surgical History:
See HPI
Social History
Tobacco: Former Smoker
Alcohol: Occasional
Drug: None
Family History
Family History: Reviewed & Not Pertinent
Allergies / Home Medications
Allergies reflects when Allergies were last updated in [employer].
Home Medications with original date entered in [employer]
Allergy/Medication List:
Allergies
Allergy/AdvReac Type Severity Reaction Status Date / Time
No Known Allergies Allergy Verified 09/01/24 21:26
Home Medications
aspirin 81 mg chewable tablet 81 mg PO DAILY #90 tabs 10/24/22
calcium 600 mg (as carbonate)-vitamin D3 5 mcg (200 unit) tablet 1 tab PO DAILY 09/02/24
evolocumab 140 mg/mL subcutaneous syringe (Repatha Syringe) 140 mg SC Q2W 09/02/24
furosemide 20 mg tablet 20 mg PO DAILY 09/02/24
metoprolol succinate 25 mg tablet,extended release 24 hr 25 mg PO BID 09/02/24
multivitamin 1 tab PO DAILY 09/02/24
rivaroxaban 2.5 mg tablet 2.5 mg PO BID Blood Clot Prevention/Tx 09/02/24
ursodiol 250 mg tablet 750 mg PO DAILY 09/02/24
albuterol sulfate 90 mcg/actuation aerosol inhaler 2 puff inhalation PRN shortness of breath #8.5 grams 09/03/24
losartan 25 mg tablet 25 mg PO DAILY 10/06/24
spironolactone 25 mg tablet 25 mg PO DAILY 10/06/24
Review of Systems
-
History Source: Patient
A 12 point Review of Systems was completed except as noted: Yes
Physical Exam
Vital Signs
Vital Signs
Temp Pulse Resp BP Pulse Ox
98.1 F 71 17 129/74 97
10/10/24 11:15 10/10/24 11:15 10/10/24 11:15 10/10/24 07:01 10/10/24 11:15
Physical Exam
General: Well Developed, Well Nourished and No Apparent Distress
HEENT: Normocephalic
Respiratory: Clear; Negative Wheezes or Rhonchi
Cardiac: S1/S2 and Regular Rhythm; Negative Tachycardia
GI: Soft, Non Tender and Non Distended
Genito-urinary: No Costovertebral Tend
Musculoskeletal: No Clubbing, No Cyanosis and No Edema
Skin: Warm; Negative Rash or Jaundice
Neuro: Awake, Alert, Oriented and AO x 3
Psych: Calm
Laboratory Results
-
Laboratory Results
10/08/24 21:06
10/10/24 04:08
PT 13.1 Sec (11.4-14.6) 10/07/24 03:40
INR 0.96 10/07/24 03:40
APTT 26.8 Sec (23.4-35.0) 10/07/24 03:40
Total Bilirubin 0.7 mg/dl (0.2-1.3) 10/07/24 03:40
AST 30 U/L (14-36) 10/07/24 03:40
ALT 21 U/L (0-35) 10/07/24 03:40
Alkaline Phosphatase 73 U/L (38-126) 10/07/24 03:40
Data Reviewed
-
CT Scan: Report Reviewed by Me
Lab Data: Labs Reviewed
Impression / Plan
-
A/P:
#CAD with multivessel disease
#atrial tachycardia with aberrant conduction
#HFrEF, chronic
#Essential HTN
Cont telemetry, cont increased BB dose
Appears euvolemic
As per CTS - high risk for Sx, so to be transferred onto metal precision machine assembler service
Cardiology for PCI: not felt to have great PCI targets, however high risk PCI felt to be better choice if possible
#DM type 2 with neuropathy
Acuchecks, Insulin SS, DM diet
#Recent pnuemonia
some inflammatory changes on CT
reccomend to follow with pulm in [address] chest
#Claudia liver
#Carotid stenosis
#PAD s/p bypass and stent
#ROX
#COPD, stable
#HLD
#Carotid stenosis
#Subclavian stenosis
cont home meds
COnt HS CPAP
ASA to cont, Xarelto on hold
DVT ppx Hep
Full code
I have spent at least 77min reviewing chart, test results, communication with cosnultants and providing direct patient care
--- NOTE | 2024-10-10 23:41 | PTCARENOTE ---
Patient received at change of shift resting in the bed. Offers no complaints at this time. Denies chest pain or pressure. Right groin cath site LACI, ecchymotic but soft to palpation. Pedal pulses palpable. SR with first degree AVB on telemetry.
Oxygen saturation 98% on room air and 98-99% on own BiPAP machine. Plan of care discussed with patient. Call velazquez within reach. Care ongoing
[2024-10-11] VITALS (8 sets, daily range): BP systolic 101–138; BP diastolic 64–79
[2024-10-11 04:55] LABS: Hematocrit 34.1 % (37.0-47.0); Hemoglobin 11.5 g/dL (12.0-16.0); Mean Corp Hgb Conc. 33.7 g/dL (33.0-37.0); Mean Corpuscular Volume 91.4 fL (81.0-99.0); Nucleated Red Blood Cells % 0 %; Platelet Count 240 10^3/uL (130-400); Red Cell Dist. Width 13.4 % (11.5-14.5)
[2024-10-11 05:46] LABS: ALT (SGPT) 20 U/L (0-35); AST (SGOT) 30 U/L (14-36); Albumin 3.6 g/dl (3.5-5.0); Alkaline Phosphatase 67 U/L (38-126); Blood Urea Nitrogen 20 mg/dl (7-17); Calcium 9.6 mg/dl (8.4-10.2); Carbon Dioxide 25 mmol/L (22-30); Chloride 104 mmol/L (98-107); Estimated Creatinine Clearance 32 ml/min; Glucose 94 mg/dl (70-99); Magnesium 2.0 mg/dl (1.6-2.3); Potassium 3.9 mmol/L (3.5-5.1); Sodium 134 mmol/L (135-145); Total Protein 6.1 g/dl (6.3-8.2); eGFR 51.43
[2024-10-11] MEDS: URSO 750 MG PO (07:45)
[2024-10-11] MEDS: LOW STRENGTH ASPIRIN 81 MG PO (07:46)
[2024-10-11] MEDS: COZAAR 25 MG PO (07:46)
[2024-10-11] MEDS: LASIX 20 MG PO (07:46)
[2024-10-11] MEDS: TOPROL XL 37.5 MG PO ×2 (07:47→19:22)
--- NOTE | 2024-10-11 07:48 | W.PN.CARDCBS ---
Today's Communication / Plan
-
High risk PCI on Sunday or Sunday
Will need to decide on Plavix load, patient was chronically on Xarelto 2.5 mg BID for h/o PAD prior to admission, but that is now on hold
Impression / Plan
-
Primary Counter Attendant: Dr. Regalado
Assessment:
Presented initially with LAM
MV CAD including L main disease by cath at [facility] 10/06/24
COPD with admission to [facility] for exacerbation requiring intubation 08/2024, on CPAP
Chronic HFmrEF
Cardiomyopathy, EF 40-45%
Carotid stenosis
PAD s/p left common iliac stenting and left femoral-popliteal bypass
Chronic Xarelto for h/o PAD
Hypertension
HLD
Type 2 diabetes
Temporal arteritis
Echo 09/02/2024: Global hypokinesis, EF 40 to 45%, mild concentric LVH, stage II diastolic dysfunction, mild to moderate MR, mild TR, PAP 43 mm
Echo 10/07/2024: EF 54%, mild to moderate MR, mild TR, PAP 39 mmHg
Plan:
-Transferred from [facility] 10/06/2024 for CABG evaluation after elective cath showed MV CAD including LM disease.
-Patient was found to have MV CAD including LM disease by cardiac cath at [facility] 10/06/2024. Patient was evaluated by the CT surgery team, including 2 CT surgeons, during this admission and is felt to be high risk for CABG with high STS scores and so
high risk PCI +/- Impella has been recommended. Patient is agreeable to an attempt at PCI and we will plan for either 10/13/2024 or 10/14/2024.
-Managed the expectation with the patient that we are not sure if PCI will happen on Sunday or Sunday and that she needs to be evaluated by interventional cardiology on Sunday to determine final plan and timing. Patient reports her children will
be back in the area by then and so overall timing is favorable.
-Patient is pain-free without heparin gtt
-Outpatient dose of aspirin 81 mg daily has been continued.
-Patient will need to be loaded with Plavix prior to planned PCI, will review with interventional cardiology to determine timing
-LDL 77 on 09/02/2024. Patient was taking Repatha 140 mg SQ every 2 weeks prior to admission
-Outpatient dose of Toprol-XL was increased to 37.5 mg BID this admission
-Outpatient dose of losartan 25 mg daily has been continued
-Patient is chronically on Xarelto for history of PAD. Patient previously tolerated Plavix following peripheral intervention in 2022. Not sure if patient will need ongoing OAC or if DAPT will be acceptable.
-Outpatient dose of Lasix 20 mg daily has been continued. No evidence of acute HF this admission. EF is 54% by echo 10/07/2024
-Outpatient doses of Toprol-XL and losartan as above. Additionally patient is chronically on spironolactone 25 mg daily which has also been continued
Progress Note - Counter Attendant
Subjective
Date of Service: October 11, 2024
No chest pain
Objective
Labs:
10/11/24 04:16
10/11/24 04:16
Labs
Hgb 11.5 g/dL (12.0-16.0) L 10/11/24 04:16
Hct 34.1 % (37.0-47.0) L 10/11/24 04:16
Plt Count 240 10^3/uL (130-400) 10/11/24 04:16
PT 13.1 Sec (11.4-14.6) 10/07/24 03:40
INR 0.96 10/07/24 03:40
APTT 26.8 Sec (23.4-35.0) 10/07/24 03:40
Sodium 134 mmol/L (135-145) L 10/11/24 04:16
Potassium 3.9 mmol/L (3.5-5.1) 10/11/24 04:16
BUN 20 mg/dl (7-17) H 10/11/24 04:16
Creatinine 1.1 mg/dL (0.6-1.0) H 10/11/24 04:16
Glucose 94 mg/dl (70-99) 10/11/24 04:16
Vital Signs and I&O:
Vital Signs
Temp Pulse Resp BP Pulse Ox
98.6 F 64 16 138/72 97
10/11/24 07:07 10/11/24 07:07 10/11/24 07:07 10/11/24 07:07 10/11/24 07:07
Vital Signs
Temp Pulse Resp BP Pulse Ox
98.6 F 64 16 138/72 97
10/11/24 07:07 10/11/24 07:07 10/11/24 07:07 10/11/24 07:07 10/11/24 07:07
Intake & Output
10/09/24 10/10/24 10/11/24 10/12/24
06:59 06:59 06:59 06:59
Intake Total 640 / 640
Balance 640 / 640
Physical Exam
Physical Exam
GEN: NAD. AAO x3
LUNGS: RA. No audible wheeze
CV: SR on tele
[2024-10-11] MEDS: ALDACTONE 25 MG PO (07:49)
--- NOTE | 2024-10-11 08:07 | W.PN.HOSP.TC ---
Addendum entered and electronically signed by Jacinto Quijano MD 10/11/24 09:53:
I saw and examined the patient.
The Materials Coordinator's note was reviewed and I agree with the note.
Comment:
GEN: No distress, awake, Ox3
HEENT: supple, anicteric, mmm
LUNGS: CTA, no wheezes/rales
CV: Reg, S1/S2, 1/6 syst LSB, no gallop
ABD: soft, BS+, NT/ND
EXT: No edema
NEURO: Gross non-focal
SKIN: No rash
Plan:
No new chest pains. Plan is for high risk PCI either Sunday or Sunday. Will discuss with interventional cardiology Sunday morning. Declined for bypass surgery.
Continue aspirin, Toprol, and losartan.
Takes Repatha as outpatient. will hold off on statin.
Continue Cozaar and spironolactone for hypertension.
Hospitalist checking for COVID and influenza with sore throat.
Original Note:
Today's Communication/Plan
-
check COVID-19 and Influenza
await cardiology for PCI
Assessment / Plan
Assessment / Plan
79yo F with PMHX of ROX, COPD, HLD, CAD, HFrEF, carotid stenosis, DM, PAD s/p L fem/popleteal bypass, L common iliac stent, HTN, recent admission to with COPD exacerbation and pneumonia, followed up with her clinical coder upon d/c and had elective
cardiac cath on 10/06/24found multivessel CAD, transferred to for CABG eval, however deemed poor surgical candidate as per CTS evaluation, so planned for PCI by cardiology
A/P:
#CAD with multivessel disease
#atrial tachycardia with aberrant conduction
#HFrEF, chronic
#Essential HTN
Cont telemetry, cont increased BB dose
Appears euvolemic
As per CTS - high risk for Sx, so to be transferred onto shell shop supervisor service
Cardiology for PCI: not felt to have great PCI targets, however high risk PCI felt to be better choice if possible
#DM type 2 with neuropathy
Acuchecks, Insulin SS, DM diet
#Recent pneumonia
some inflammatory changes on CT
currently asymptomatic, no fever, no leukocytosis
recommend to follow with pulm in [address] chest
#Hoarseness
acute
w/o throat pain
patient does npot complain of respiratory symptoms
COVID-19 and Influenza PCR reasonable
#Fatty liver
#Carotid stenosis
#PAD s/p bypass and stent
#ROX
#COPD, stable
#HLD
#Carotid stenosis
#Subclavian stenosis
#DJD
CKD stage 3a
cont home meds
COnt HS CPAP
ASA to cont, Xarelto on hold
cont to follow with VascSx upon d/c
baseline Cr 1.0-1.1
DVT ppx Hep
Full code
I have spent at least 37min reviewing chart, test results, communication with cosnultants and providing direct patient care
Anticipated Discharge: > 48 hours
Subjective/Interval History
-
Date of Service: October 11, 2024
Objective Data
-
Labs:
Laboratory Results
10/11/24
04:16
WBC 4.8
Hgb 11.5 L
Hct 34.1 L
Plt Count 240
Sodium 134 L
Potassium 3.9
Chloride 104
Carbon Dioxide 25
BUN 20 H
Creatinine 1.1 H
Glucose 94
Calcium 9.6
Total Bilirubin 0.5
AST 30
ALT 20
Alkaline Phosphatase 67
Vital Signs:
Vital Signs
Temp Pulse Resp BP Pulse Ox
98.6 F 64 16 138/72 97
10/11/24 07:07 10/11/24 07:07 10/11/24 07:07 10/11/24 07:07 10/11/24 07:07
I&O
10/10/24 10/11/24 10/12/24
06:59 06:59 06:59
Intake Total 640 / 640
Balance 640 / 640
Physical Exam
-
General: No Apparent Distress
HEENT: Normocephalic
Respiratory: Clear to Auscultation
GI: Soft, Nontender and Nondistended
Musculoskeletal: No Clubbing, No Cyanosis and No Edema
Skin: Warm
Neuro: Awake, Alert, Oriented and AO x 3
Psych: Calm
[2024-10-11] MEDS: SENOKOT-S 1 TABLET PO (08:17)
[2024-10-11 09:48] LABS: COVID-19 Antigen Negative (Negative)
--- NOTE | 2024-10-11 20:56 | PTCARENOTE ---
Patient received at change of shift resting in the bed. Reports no complaints and denies pain. Sinus rhythm with first degree AV block on telemetry. Oxygen saturation 95-96% on room air. Right groin cath site NECK BAND MAKER, ecchymotic but soft to palpation.
Call velazquez within reach. Plan of care discussed. Care ongoing.
[2024-10-12] VITALS (13 sets, daily range): BP systolic 95–156; BP diastolic 50–115; BMI 19.1
[2024-10-12] MEDS: LASIX 20 MG PO (08:05)
[2024-10-12] MEDS: URSO 750 MG PO (08:05)
[2024-10-12] MEDS: ALDACTONE 25 MG PO (08:05)
[2024-10-12] MEDS: TOPROL XL 37.5 MG PO ×2 (08:05→20:38)
[2024-10-12] MEDS: COZAAR 25 MG PO (08:06)
[2024-10-12] MEDS: LOW STRENGTH ASPIRIN 81 MG PO (08:06)
[2024-10-12] MEDS: SENOKOT-S 1 TABLET PO (08:13)
--- NOTE | 2024-10-12 08:20 | W.PN.CARDCBS ---
Today's Communication / Plan
-
Remained stable with no new chest pains.
Continue medical therapy for severe CAD/left main disease.
Continue aspirin, Toprol, losartan, spironolactone, and Repatha.
Volume status is stable on Lasix 20 mg daily.
Will discuss plan with interventional team in a.m. regarding high risk PCI with Impella support
Creatinine stable at 1.1
Keep n.p.o. after midnight for now.
Impression / Plan
-
Primary Aco Coordinator: Dr. Regalado
Assessment:
Presented initially with LAM
MV CAD including L main disease by cath at [facility] 10/06/24
COPD with admission to [facility] for exacerbation requiring intubation 08/2024, on CPAP
Chronic HFmrEF
Cardiomyopathy, EF 40-45%
Carotid stenosis
PAD s/p left common iliac stenting and left femoral-popliteal bypass
Chronic Xarelto for h/o PAD
Hypertension
HLD
Type 2 diabetes
Temporal arteritis
Echo 09/02/2024: Global hypokinesis, EF 40 to 45%, mild concentric LVH, stage II diastolic dysfunction, mild to moderate MR, mild TR, PAP 43 mm
Echo 10/07/2024: EF 54%, mild to moderate MR, mild TR, PAP 39 mmHg
Plan:
-Transferred from [facility] 10/06/2024 for CABG evaluation after elective cath showed MV CAD including LM disease.
-Patient was found to have MV CAD including LM disease by cardiac cath at [facility] 10/06/2024. Patient was evaluated by the CT surgery team, including 2 CT surgeons, during this admission and is felt to be high risk for CABG with high STS scores and so
high risk PCI +/- Impella has been recommended. Patient is agreeable to an attempt at PCI and we will plan for either 10/13/2024 or 10/14/2024.
-Managed the expectation with the patient that we are not sure if PCI will happen on Sunday or Sunday and that she needs to be evaluated by interventional cardiology on Sunday to determine final plan and timing. Patient reports her children will
be back in the area by then and so overall timing is favorable.
-Patient is pain-free without heparin gtt
-Outpatient dose of aspirin 81 mg daily has been continued.
-Patient will need to be loaded with Plavix prior to planned PCI, will review with interventional cardiology to determine timing
-LDL 77 on 09/02/2024. Patient was taking Repatha 140 mg SQ every 2 weeks prior to admission
-Outpatient dose of Toprol-XL was increased to 37.5 mg BID this admission
-Outpatient dose of losartan 25 mg daily has been continued
-Patient is chronically on Xarelto for history of PAD. Patient previously tolerated Plavix following peripheral intervention in 2022. Not sure if patient will need ongoing OAC or if DAPT will be acceptable.
-Outpatient dose of Lasix 20 mg daily has been continued. No evidence of acute HF this admission. EF is 54% by echo 10/07/2024
-Outpatient doses of Toprol-XL and losartan as above. Additionally patient is chronically on spironolactone 25 mg daily which has also been continued
Progress Note - Aco Coordinator
Subjective
Date of Service: October 12, 2024
Denies chest pains or shortness of breath.
Objective
Labs:
10/11/24 04:16
10/11/24 04:16
Labs
Hgb 11.5 g/dL (12.0-16.0) L 10/11/24 04:16
Hct 34.1 % (37.0-47.0) L 10/11/24 04:16
Plt Count 240 10^3/uL (130-400) 10/11/24 04:16
PT 13.1 Sec (11.4-14.6) 10/07/24 03:40
INR 0.96 10/07/24 03:40
APTT 26.8 Sec (23.4-35.0) 10/07/24 03:40
Sodium 134 mmol/L (135-145) L 10/11/24 04:16
Potassium 3.9 mmol/L (3.5-5.1) 10/11/24 04:16
BUN 20 mg/dl (7-17) H 10/11/24 04:16
Creatinine 1.1 mg/dL (0.6-1.0) H 10/11/24 04:16
Glucose 94 mg/dl (70-99) 10/11/24 04:16
Vital Signs and I&O:
Vital Signs
Temp Pulse Resp BP Pulse Ox
97.8 F 69 16 146/104 96
10/12/24 07:56 10/12/24 07:56 10/12/24 07:56 10/12/24 07:56 10/12/24 07:56
Vital Signs
Temp Pulse Resp BP Pulse Ox
97.8 F 69 16 146/104 96
10/12/24 07:56 10/12/24 07:56 10/12/24 07:56 10/12/24 07:56 10/12/24 07:56
Intake & Output
10/10/24 10/11/24 10/12/24 10/13/24
06:59 06:59 06:59 06:59
Intake Total 640 / 640 240 / 240
Balance 640 / 640 240 / 240
Physical Exam
Physical Exam
GEN: No distress, awake, Ox3
HEENT: supple, anicteric, mmm
LUNGS: CTA, no wheezes/rales
CV: Reg, S1/S2, 1/6 syst LSB, no gallop
ABD: soft, BS+, NT/ND
EXT: No edema
NEURO: Gross non-focal
SKIN: No rash
--- NOTE | 2024-10-12 09:00 | PTCARENOTE ---
PT received AAOx3 w/o complaints of pain; SR on monitor VSS; RA clear lung sounds; GI wnl; WNL; skin CDI; PIVx1 wnl; PT independent in room see worklist for detailed assessment
--- NOTE | 2024-10-12 11:59 | W.PN.HOSP.TC ---
Today's Communication/Plan
-
Pending CABG
Labs in AM
Eliquis still on hold as per cardio
Assessment / Plan
Assessment / Plan
79yo F with PMHX of ROX, COPD, HLD, CAD, HFrEF, carotid stenosis, DM, PAD s/p L fem/popleteal bypass, L common iliac stent, HTN, recent admission to with COPD exacerbation and pneumonia, followed up with her prize coordinator upon d/c and had elective
cardiac cath on 10/06/24found multivessel CAD, transferred to for CABG eval, however deemed poor surgical candidate as per CTS evaluation, so planned for PCI by cardiology
A/P:
#CAD with multivessel disease
#atrial tachycardia with aberrant conduction
#HFrEF, chronic
#Essential HTN
Cont telemetry, cont increased BB dose
Appears euvolemic
As per CTS - high risk for Sx, so to be transferred onto digester hand service
Cardiology for PCI: not felt to have great PCI targets, however high risk PCI felt to be better choice if possible
#DM type 2 with neuropathy
Acuchecks, Insulin SS, DM diet
#Recent pneumonia
some inflammatory changes on CT
currently asymptomatic, no fever, no leukocytosis
recommend to follow with pulm in [address] chest
#Hoarseness
acute
w/o throat pain
patient does npot complain of respiratory symptoms
COVID-19 and Influenza PCR reasonable
#Fatty liver
#Carotid stenosis
#PAD s/p bypass and stent
#ROX
#COPD, stable
#HLD
#Carotid stenosis
#Subclavian stenosis
#DJD
CKD stage 3a
cont home meds
COnt HS CPAP
ASA to cont, Xarelto on hold
cont to follow with VascSx upon d/c
baseline Cr 1.0-1.1
DVT ppx Hep
Full code
I have spent at least 37min reviewing chart, test results, communication with cosnultants and providing direct patient care
Anticipated Discharge: 24 - 48 hours
Subjective/Interval History
-
Date of Service: October 12, 2024
Objective Data
-
Vital Signs:
Vital Signs
Temp Pulse Resp BP Pulse Ox
97.8 F 69 16 146/104 96
10/12/24 07:56 10/12/24 07:56 10/12/24 07:56 10/12/24 07:56 10/12/24 07:56
I&O
10/11/24 10/12/24 10/13/24
06:59 06:59 06:59
Intake Total 240 / 240
Balance 240 / 240
Review of Systems
-
History Source: Patient
All other systems: Reviewed and negative
Physical Exam
-
General: Comfortable
Neuro: Awake, Alert, Oriented and AO x 3
Psych: Calm
--- NOTE | 2024-10-12 12:00 | PTCARENOTE ---
no change from previous assessment
--- NOTE | 2024-10-12 17:00 | PTCARENOTE ---
no change from previous assessment
--- NOTE | 2024-10-12 23:20 | PTCARENOTE ---
Received patient at change of shift. SR with a first degree HB and PVCs on the monitor, HR in the 60s. R groin LACI, intact. No chest pain or palpitations. No complaints from pt at this time, call velazquez within reach.
[2024-10-13] VITALS (7 sets, daily range): BP systolic 106–150; BP diastolic 65–95; BMI 19.0
[2024-10-13 04:39] LABS: Hematocrit 36.0 % (37.0-47.0); Hemoglobin 12.3 g/dL (12.0-16.0); Mean Corp Hgb Conc. 34.2 g/dL (33.0-37.0); Mean Corpuscular Volume 88.7 fL (81.0-99.0); Nucleated Red Blood Cells % 0 %; Platelet Count 249 10^3/uL (130-400); Red Cell Dist. Width 13.0 % (11.5-14.5)
[2024-10-13 04:48] LABS: INR 0.96; PT 13.1 Sec (11.4-14.6)
[2024-10-13 04:49] LABS: APTT 27.7 Sec (23.4-35.0)
[2024-10-13 05:06] LABS: ALT (SGPT) 24 U/L (0-35); AST (SGOT) 34 U/L (14-36); Albumin 3.9 g/dl (3.5-5.0); Alkaline Phosphatase 76 U/L (38-126); Blood Urea Nitrogen 31 mg/dl (7-17); Calcium 9.6 mg/dl (8.4-10.2); Carbon Dioxide 24 mmol/L (22-30); Chloride 104 mmol/L (98-107); Estimated Creatinine Clearance 35 ml/min; Glucose 92 mg/dl (70-99); Potassium 4.1 mmol/L (3.5-5.1); Sodium 133 mmol/L (135-145); Total Protein 6.5 g/dl (6.3-8.2); eGFR 57.66
--- NOTE | 2024-10-13 09:25 | W.PN.CARDCBS ---
Addendum entered and electronically signed by Jeremiah Kat MD 10/13/24 10:13:
Pleasant 79-year-old woman transferred from [place] 10/06/2024 with multivessel and left main coronary disease, high risk for CABG and scheduled for PCI and possible Impella 10/14/2024
[facility] COPD, previously ventilator dependent, heart failure with mildly reduced EF, PAD with common iliac stenting and femoropopliteal bypass, hypertension, hyperlipidemia, diabetes, giant cell arteritis
Current meds: Reviewed, Plavix 600 mg daily added
She is currently comfortable.
150/79, pulse 63, respiratory 20, afebrile, petite, relatively frail, no distress diminished breath sounds, Soft apical systolic murmur, abdomen benign distal pulses still palpable no edema
ECG sinus rhythm with brief runs of atrial tach and a Mat[place] C, inferior IN, left axis, anterior ischemia
Hemoglobin 12.3, platelets 249, BUN and creatinine 31 and 1.0
Impression:
Multivessel CAD with left main disease
COPD
Chronic heart failure with mildly reduced EF, 40-45%
PAD
Hypertension, hyperlipidemia, diabetes, temporal arteritis
Plan:
PCI in a.m., possibly with Impella support
Original Note:
Today's Communication / Plan
-
NPO after MN for PCI 10/14/24
plavix load 600 mg today-I ordered
Impression / Plan
-
Primary It Consultant: Dr. Regalado
Assessment:
Presented initially with LAM
MV CAD including L main disease by cath at [facility] 10/06/24
COPD with admission to [facility] for exacerbation requiring intubation 08/2024, on CPAP
Chronic HFmrEF
Cardiomyopathy, EF 40-45%
Carotid stenosis
PAD s/p left common iliac stenting and left femoral-popliteal bypass
Chronic Xarelto for h/o PAD
Hypertension
HLD
Type 2 diabetes
Temporal arteritis
Echo 09/02/2024: Global hypokinesis, EF 40 to 45%, mild concentric LVH, stage II diastolic dysfunction, mild to moderate MR, mild TR, PAP 43 mm
Echo 10/07/2024: EF 54%, mild to moderate MR, mild TR, PAP 39 mmHg
Plan:
-Transferred from [facility] 10/06/2024 for CABG evaluation after elective cath showed MV CAD including LM disease.
-Patient was found to have MV CAD including LM disease by cardiac cath at [facility] 10/06/2024. Patient was evaluated by the CT surgery team, including 2 CT surgeons, during this admission and is felt to be high risk for CABG with high STS scores and so
high risk PCI +/- Impella has been recommended. Patient is agreeable to an attempt at PCI, scheduled for 10/14/2024.
-Patient is pain-free without heparin gtt
-Outpatient dose of aspirin 81 mg daily has been continued.
-Patient will need to be loaded with Plavix prior to planned PCI, reviewed with interventional cardiology- Plavix 600 mg ordered for now
-LDL 77 on 09/02/2024. Patient was taking Repatha 140 mg SQ every 2 weeks prior to admission
-Outpatient dose of Toprol-XL was increased to 37.5 mg BID this admission
-Outpatient dose of losartan 25 mg daily has been continued
-Patient is chronically on Xarelto for history of PAD. Patient previously tolerated Plavix following peripheral intervention in 2022. Not sure if patient will need ongoing OAC or if DAPT will be acceptable.
-Outpatient dose of Lasix 20 mg daily has been continued. No evidence of acute HF this admission. EF is 54% by echo 10/07/2024
-Outpatient doses of Toprol-XL and losartan as above. Additionally patient is chronically on spironolactone 25 mg daily which has also been continued
Progress Note - It Consultant
Subjective
Date of Service: October 13, 2024
feels well
no chest pain
for [facility] tomorrow
Objective
Labs:
10/13/24 04:14
10/13/24 04:14
Labs
Hgb 12.3 g/dL (12.0-16.0) 10/13/24 04:14
Hct 36.0 % (37.0-47.0) L 10/13/24 04:14
Plt Count 249 10^3/uL (130-400) 10/13/24 04:14
PT 13.1 Sec (11.4-14.6) 10/13/24 04:14
INR 0.96 10/13/24 04:14
APTT 27.7 Sec (23.4-35.0) 10/13/24 04:14
Sodium 133 mmol/L (135-145) L 10/13/24 04:14
Potassium 4.1 mmol/L (3.5-5.1) 10/13/24 04:14
BUN 31 mg/dl (7-17) H 10/13/24 04:14
Creatinine 1.0 mg/dL (0.6-1.0) 10/13/24 04:14
Glucose 92 mg/dl (70-99) 10/13/24 04:14
Vital Signs and I&O:
Vital Signs
Temp Pulse Resp BP Pulse Ox
97.9 F 57 20 140/81 96
10/13/24 08:06 10/13/24 07:00 10/13/24 08:06 10/13/24 03:56 10/13/24 08:06
Vital Signs
Temp Pulse Resp BP Pulse Ox
97.9 F 57 20 140/81 96
10/13/24 08:06 10/13/24 07:00 10/13/24 08:06 10/13/24 03:56 10/13/24 08:06
Intake & Output
10/11/24 10/12/24 10/13/24 10/14/24
06:59 06:59 06:59 06:59
Intake Total 240 / 240 240 / 240
Balance 240 / 240 240 / 240
Physical Exam
Physical Exam
GEN: No distress, awake, Ox3
HEENT: supple, anicteric, mmm
LUNGS: CTA, no wheezes/rales
CV: Reg, S1/S2,no murmur
ABD: soft, BS+, NT/ND
EXT: No edema
NEURO: Gross non-focal
SKIN: No rash
--- NOTE | 2024-10-13 09:57 | CM ---
Reviewed chart. Met with Mrs. Alvarado to review discharge plans. She states she is scheduled for procedure on Sunday10/14/24. Prior to admission she resides with her spouse , daughter, son-in-law and grandchildren in a two story home with five
steps to enter. Her bedroom/full bathroom is on the first floor. Prior to admission she was independent with ambulation and adls. She has a IPAP Machine at home and no other DME in the home. She has had [facility] in the past. She has a
prescription plan. Medical work-up in progress. The discharge plan is to return home with her family when medically stable.
[2024-10-13] MEDS: URSO 750 MG PO (09:59)
[2024-10-13] MEDS: TOPROL XL 37.5 MG PO ×2 (09:59→19:44)
[2024-10-13] MEDS: LASIX 20 MG PO (09:59)
[2024-10-13] MEDS: ALDACTONE 25 MG PO (09:59)
[2024-10-13] MEDS: LOW STRENGTH ASPIRIN 81 MG PO (09:59)
[2024-10-13] MEDS: PLAVIX 600 MG PO (09:59)
[2024-10-13] MEDS: COZAAR 25 MG PO (10:00)
--- NOTE | 2024-10-13 10:41 | PTCARENOTE ---
Pt is AOx3, no complaints of pain or discomfort. Independent OOB. SR w/ HB on tele monitor, VSS. Will be NPO for PCI tomorrow. Call velazquez within reach.
--- NOTE | 2024-10-13 15:04 | W.PN.HOSP.TC ---
Today's Communication/Plan
-
Assessment / Plan
Assessment / Plan
CAD with multivessel disease
Evaluated by cardiothoracic surgery believed to be too high risk
Cardiology planning for high risk PCI
Continue aspirin Plavix
HFrEF, chronic, compensated
Continue Aldactone losartan and Lasix beta-blockade
Will need to discuss with cardiology initiating SGLT2 inhibitor if no history of UTIs
Fatty liver
Outpatient GI/hepatology follow-up
Heart healthy diet
Carotid stenosis
Continue DAPT plus Repatha every 2 weeks
PAD s/p bypass and stent
DAPT
COPD
As needed albuterol for shortness of breath as outpatient however has not been started inpatient and no complaints of wheezing shortness of breath since being in the hospital
Hyperlipidemia
Repatha should be continued upon discharge
Anticipated Discharge: 24 - 48 hours
Subjective/Interval History
-
Date of Service: October 13, 2024
Seen and examined. No new complaints. No acute overnight events.
Denies chest pain chest discomfort dizziness shortness of breath palpitations
Objective Data
-
Labs:
Laboratory Results
10/13/24
04:14
WBC 5.5
Hgb 12.3
Hct 36.0 L
Plt Count 249
PT 13.1
INR 0.96
APTT 27.7
Sodium 133 L
Potassium 4.1
Chloride 104
Carbon Dioxide 24
BUN 31 H
Creatinine 1.0
Glucose 92
Calcium 9.6
Total Bilirubin 0.5
AST 34
ALT 24
Alkaline Phosphatase 76
Vital Signs:
Vital Signs
Temp Pulse Resp BP Pulse Ox
98.5 F 72 20 150/95 98
10/13/24 11:10 10/13/24 12:00 10/13/24 11:10 10/13/24 11:11 10/13/24 11:11
I&O
10/12/24 10/13/24 10/14/24
06:59 06:59 06:59
Intake Total 240 / 240 240 / 240
Balance 240 / 240 240 / 240
Physical Exam
-
General: No Apparent Distress and Comfortable
HEENT: Normocephalic and Atraumatic
Respiratory: Clear to Auscultation
Cardiac: Regular Rhythm and S1/S2
GI: Soft, Nontender and Nondistended
Skin: Warm and Dry
Neuro: Awake and AO x 3
Psych: Calm
[2024-10-14] VITALS (23 sets, daily range): BP systolic 80–147; BP diastolic 43–111; BMI 18.8
--- NOTE | 2024-10-14 02:27 | PTCARENOTE ---
Tele monitor remains SR w/ 1st AV block and occasional PVCs. Pt denies any pain or SOB. Aware to maintain NPO status at midnight for planned cath on 10/14. Patient oriented x4 and aware of POC. Can make needs known, call velazquez within reach.
[2024-10-14] MEDS: LOW STRENGTH ASPIRIN 81 MG PO (06:52)
--- NOTE | 2024-10-14 07:39 | PTCARENOTE ---
Patient resting in bed this morning, NPO. Report given to the catheterization laboratory technician by group home counselor nurse, patient seen and consented by Dr. Vital and taken to the catheterization laboratory technician.
[2024-10-14] MEDS: URSO PO (08:00)
[2024-10-14 08:57] LABS: ACT-LR - POC 305 Seconds (116-155)
[2024-10-14 09:19] LABS: ACT-LR - POC 335 Seconds (116-155)
[2024-10-14 09:38] LABS: ACT-LR - POC 348 Seconds (116-155)
[2024-10-14 09:57] LABS: ACT-LR - POC 318 Seconds (116-155)
--- NOTE | 2024-10-14 10:13 | ITS.CL.CATH ---
Clinical Resource Manager - Catheterization
Cardiac Catheterization
Procedure Report:
LEFT HEART CATH AND CORONARY INTERVENTION
Date of Procedure: October 14, 2024
Referring: Dr. Jose Regalado
PROCEDURES:
1. Coronary angiography
2. Angioplasty of the mid RCA with rupture of 3.0 mm noncompliant balloon
3. Shockwave lithotripsy of the mid RCA with a 3.5 mm shockwave balloon with 120 shocks delivered
4. Successful stenting of the mid RCA with 3.5 x 30 mm Brooklyn stent that was implanted at nominal pressures and postdilated initially with a 3.5 mm noncompliant balloon to 25 hero and focally in the mid RCA with a 3.75 mm noncompliant balloon
5. Angioplasty and stenting of the ostial to mid left main with placement of a 4.0 x 15 mm Brooklyn stent that was postdilated to high pressures with a 4.0 mm noncompliant balloon
6. Intravascular ultrasound of the left main
INDICATION: High risk coronary anatomy with underlying severe COPD and felt to be poor surgical candidate
ACCESS: Arterial access was obtained in the right common femoral artery using ultrasound guidance. A 7 Estonian arterial sheath was inserted. Ultrasound guidance was utilized to gain access into the right common femoral vein with placement of a 6
E[place]ian sheath. Ultrasound guidance was utilized to gain access in the left common femoral artery and a 4 Estonian sheath was inserted as a vascular backup in case Impella support is required during left main coronary intervention
HEMODYNAMICS (mmHg):
AO (s/d, m) : 168/64
CORONARY FINDINGS
Dominance: Right
LEFT MAIN: Heavily calcified 80% ostial stenosis
LEFT ANTERIOR DESCENDING: The LAD arises normally and is heavily calcified. There is diffuse proximal atherosclerotic disease with luminal narrowing to 50%
CIRCUMFLEX: The circumflex gives rise to a single sizable obtuse marginal branch that bifurcates
RIGHT CORONARY: There is a heavily calcified eccentric 85% mid RCA stenosis. The the remainder of the RCA has minor irregularities but no high-grade focal obstructive stenosis. The PDA has a 60-70% proximally.
ANGIOPLASTY PROCEDURE DETAIL: The angiograms from outside hospital were reviewed with additional images performed to confirm previous angiographic findings. The short 7 Estonian arterial sheath was exchanged for a 23 cm arterial sheath which was
advanced to the distal descending aorta. The patient received a 600 mg loading dose of clopidogrel on 10/13/2024 and has been receiving 81 mg of aspirin daily.
The origin of the right coronary artery was cannulated with a 7 Estonian JR4 guiding catheter and a BMW guidewire was advanced across the calcified high-grade mid RCA stenosis with a moderate degree of difficulty and was advanced into the distal
vessel. We initially attempted to cross the calcified lesion with a 3.0 mm noncompliant balloon which unfortunately could not cross. A 2.25 x 15 mm Euphora balloon was utilized to perform angioplasty. Unfortunately, the balloon ruptured at high
pressures and was removed. A GuideLiner was then advanced into the mid RCA and a 3.0 mm noncompliant balloon could be advanced across the stenotic segment. The balloon was inflated to high pressures. Unfortunately, the balloon ruptured and was
removed. At this point intravascular lithotripsy was performed using a 3.5 mm SHOCKWAVE balloon and a total of 120 shocks were delivered over the calcified stenotic segment. The balloon appeared well-expanded. The lesion was postdilated with a
3.5 mm noncompliant balloon to high pressures. The balloon appeared well-expanded. A 3.5 x 30 mm Negrito stent was then delivered through the GuideLiner and across the stenotic segment in the mid RCA. The stent was implanted at nominal pressures and
underwent post dilation to 25 hero with a 3.5 mm noncompliant balloon. A small region of stent underexpansion was postdilated to high pressures with a 3.75 mm noncompliant balloon with a reasonable angiographic result.
Attention was then turned to the high-grade ostial left main stenosis. The origin of the left main was cannulated with a 7 Estonian JL 4 guiding catheter and a BMW guidewire was advanced into the mid LAD. The ostial stenotic segment was predilated
with a 3.0 mm then 3.5 mm noncompliant balloon to high pressures. The noncompliant balloons appear to be very well-expanded. A 4.0 x 15 mm Brooklyn stent was then advanced over the guidewire and positioned so the ostium of the stent appeared to be
with in a 1-2 mm extending into the aorta. The stent was implanted at 14 hero. Intravascular ultrasound was performed. The entire stented segment appeared well-approximated except for the calcified ostial disease segment which was re-dilated with
a 4.0 mm noncompliant balloon with a reasonable angiographic result
SEDATION: 135 minutes of procedural sedation was utilized. An independent chief medical officer was present to assist with and help manage the patient's level of consciousness and physiologic status
RADIATION SUMMARY: Fluoro Time (min): 30.7, Dose (mGy): 492, DAP (Gy.cm2) : 35.1
CONCLUSIONS
1. Complex but successful stenting of the mid right coronary artery with a 3.5 x 30 mm Negrito stent. The mid right coronary artery was pretreated with SHOCKWAVE lithotripsy. The stent was postdilated to high pressures with a 3.5 mm noncompliant and
3.75 mm noncompliant balloon
2. Successful stenting of high-grade ostial calcified left main stenosis with placement of a 4.0 x 15 mm Brooklyn stent that was implanted at nominal pressures and postdilated following intravascular ultrasound with a 4.0 mm noncompliant balloon to
high pressures
RECOMMENDATIONS
1. Uninterrupted dual antiplatelet therapy
2. High intensity lipid-lowering and guideline directed medical therapy for management of hypertension
Copy to: Dr. Jose Regalado
[2024-10-14 10:17] LABS: ACT-LR - POC 277 Seconds (116-155)
[2024-10-14 11:11] LABS: ACT-LR - POC 324 Seconds (116-155)
--- NOTE | 2024-10-14 11:34 | PTCARENOTE ---
Patient returned from the optical laboratory manager with left femoral arterial sheath in place, bloody drainage noted at site, contained in the dressing. Right groin dressing is dry and intact. Patient appears comfortable and is pain free. Legs/feet warm with
doppler pulses. Monitoring VS, post EKG done, reinforced need to maintain flat position in bed, call velazquez in reach and family at the bedside.
[2024-10-14 12:09] LABS: ACT-LR - POC 189 Seconds (116-155)
[2024-10-14 12:57] LABS: ACT-LR - POC 153 Seconds (116-155)
[2024-10-14] MEDS: TOPROL XL 37.5 MG PO ×2 (12:58→19:20)
[2024-10-14] MEDS: COZAAR 25 MG PO (12:59)
[2024-10-14] MEDS: ALDACTONE PO (14:00)
--- NOTE | 2024-10-14 16:34 | W.PN.HOSP.TC ---
Today's Communication/Plan
-
Assessment / Plan
Assessment / Plan
General: No Apparent Distress and Comfortable
HEENT: Normocephalic and Atraumatic
Respiratory: Clear to Auscultation
Cardiac: Regular Rhythm and S1/S2
GI: Soft, Nontender and Nondistended
Skin: Warm and Dry
Neuro: Awake and AO x 3
Psych: Calm
CAD with multivessel disease
Evaluated by cardiothoracic surgery believed to be too high risk
S/p high risk PCI
Angioplasty to mid RCA, shockwave lithotripsy of the mid RCA, successful stenting of the mid RCA, angioplasty and stenting of the ostial to mid left mid main
Continue DAPT, on repatha. does not look like she is on statin, not sure if she was intolerant to statin, but I have sent a message via TT to Cards PA
HFrEF, chronic, compensated
Continue Aldactone losartan and Lasix beta-blockade
Will need to discuss with cardiology initiating SGLT2 inhibitor if no history of UTIs
Fatty liver
Outpatient GI/hepatology follow-up
Heart healthy diet
Carotid stenosis
Continue DAPT plus Repatha every 2 weeks
PAD s/p bypass and stent
DAPT
COPD
As needed albuterol for shortness of breath as outpatient however has not been started inpatient and no complaints of wheezing shortness of breath since being in the hospital
Hyperlipidemia
Repatha should be continued upon discharge
Anticipated Discharge: 24 - 48 hours
Subjective/Interval History
-
Date of Service: October 14, 2024
Seen and examined. No new complaints. No acute overnight events.
Objective Data
-
Vital Signs:
Vital Signs
Temp Pulse Resp BP Pulse Ox
97.7 F 73 12 121/71 99
10/14/24 15:05 10/14/24 16:00 10/14/24 15:05 10/14/24 16:00 10/14/24 16:00
I&O
10/13/24 10/14/24 10/15/24
06:59 06:59 06:59
Intake Total 240 / 240 240 / 240
Balance 240 / 240 240 / 240
[2024-10-14] MEDS: LASIX PO (17:05)
--- NOTE | 2024-10-14 18:10 | PTCARENOTE ---
Patient maintained bedrest x 3 hours after sheath removed from the left femoral artery. Bilateral groin site dressings are dry and intact, with no signs of hematoma. Pulse by doppler are intact. Ate some dinner and was oob to the bathroom and voided
qs. Resting in bed now, call velazquez in reach.
--- NOTE | 2024-10-14 20:24 | PTCARENOTE ---
Patient received at change of shift resting in the bed. Bilateral groin sites with gauze and tegaderm C/D/I, pedal pulses obtainable with doppler. Patient denies chest pain or pressure. Endorses some tenderness at her groin sites but this is
currently acceptable to her and she presently declines any PRN pain medication. Sinus rhythm with first degree AV block on telemetry. Oxygen saturation 97% on room air. Plan of care discussed. Call velazquez within reach. Care ongoing.
[2024-10-15 03:00] VITALS: BP 126/77
[2024-10-15 03:13] VITALS: BMI 19.2
[2024-10-15 03:44] LABS: Hematocrit 32.1 % (37.0-47.0); Hemoglobin 11.0 g/dL (12.0-16.0); Mean Corp Hgb Conc. 34.3 g/dL (33.0-37.0); Mean Corpuscular Volume 89.2 fL (81.0-99.0); Platelet Count 234 10^3/uL (130-400); Red Cell Dist. Width 13.2 % (11.5-14.5)
[2024-10-15 04:09] LABS: Blood Urea Nitrogen 23 mg/dl (7-17); Calcium 9.1 mg/dl (8.4-10.2); Carbon Dioxide 21 mmol/L (22-30); Chloride 104 mmol/L (98-107); Estimated Creatinine Clearance 35 ml/min; Glucose 92 mg/dl (70-99); Potassium 3.8 mmol/L (3.5-5.1); Sodium 132 mmol/L (135-145); eGFR 57.66
[2024-10-15 07:04] VITALS: BP 91/79
--- NOTE | 2024-10-15 09:29 | PTCARENOTE ---
Patient resting in bed this morning, bilateral groin dressings are dry and intact. Right groin is tender to touch, with small area of some slight firmness, left groin is soft. Patient slept well and feels good, has been oob to the bathroom without
difficulty. Eating breakfast now, call velazquez in reach.
--- NOTE | 2024-10-15 09:37 | W.PN.CARDCBS ---
Addendum entered and electronically signed by Aisha Parsons DO 10/15/24 18:20:
I saw and examined the patient.
The Engineer Rf Deployment's note was reviewed and I agree with the note.
Comment: Patient was seen and examined. Offers no new complaints feeling well without chest pain and anxious to return home. No groin pain
GEN: No distress, awake, alert, oriented x3
HEENT: supple, anicteric, mmm, eomi
LUNGS: Few crackles at bases B/L, no wheezes
CV: Reg, S1/S2, no murmur
ABD: soft, BS+, NT/ND
EXT: No cyanosis, clubbing, edema
NEURO: Gross non-focal
SKIN: L groin site soft, c/d/i. R groin site with Mild ecchymosis. No hematoma.
Plan:
Status post complex RCA stenting pretreated with shockwave lithotripsy and left main PCI 10/14/24.
continue asa, plavix, PPI
continue repatha, toprol, losartan, aldactone, po lasix
Postprocedure activity restrictions reviewed
will arrange OP cardiac follow up
cardiac rehab
Original Note:
Today's Communication / Plan
-
Status post complex RCA stenting pretreated with shockwave lithotripsy and left main PCI 10/14/24.
continue asa, plavix, PPI
continue repatha, toprol, losartan, aldactone, po lasix
will arrange OP cardiac follow up
cardiac rehab
Impression / Plan
-
Primary Capacity Planner: Dr. Regalado
Assessment:
Presented initially with LAM
MV CAD including L main disease by cath at [facility] 10/06/24
status post complex RCA stenting pretreated with shockwave lithotripsy and left main PCI 10/14/24.
COPD with admission to [facility] for exacerbation requiring intubation 08/2024, on CPAP
Chronic HFmrEF
Recovered cardiomyopathy by echo 09/2024
Carotid stenosis
PAD s/p left common iliac stenting and left femoral-popliteal bypass
Chronic Xarelto for h/o PAD
Hypertension
HLD
Type 2 diabetes
Temporal arteritis
Echo 09/02/2024: Global hypokinesis, EF 40 to 45%, mild concentric LVH, stage II diastolic dysfunction, mild to moderate MR, mild TR, PAP 43 mm
Echo 10/07/2024: EF 54%, mild to moderate MR, mild TR, PAP 39 mmHg
Plan:
-Transferred from [facility] 10/06/2024 for CABG evaluation after elective cath showed MV CAD including LM disease.
-Patient was found to have MV CAD including LM disease by cardiac cath at [facility] 10/06/2024. Patient was evaluated by the CT surgery team, including 2 CT surgeons, during this admission and is felt to be high risk for CABG with high STS scores and so
high risk PCI was ultimately recommended.
-Status post complex RCA stenting pretreated with shockwave lithotripsy and left main PCI 10/14/24.
-tolerated procedure well. she reports no issues overnight
-reports some soreness of R groin, but looks ok. L groin site stable. hgb stable at 11
-continue asa, plavix.
-LDL 77 on 09/02/2024. Patient was taking Repatha 140 mg SQ every 2 weeks prior to admission
-Outpatient dose of Toprol-XL was increased to 37.5 mg BID this admission
-Outpatient dose of losartan 25 mg daily has been continued. Additionally patient is chronically on spironolactone 25 mg daily which has also been continued
-Patient was chronically on Xarelto 2.5mg BID for history of significant PAD. Patient previously tolerated Plavix following peripheral intervention in 2022. Discussed with vascular surgery, okay to continue DAPT at this time. If and when Plavix
is stopped, would plan to place back on Xarelto 2.5 mg twice daily with asa
-Outpatient dose of Lasix 20 mg daily has been continued. No evidence of acute HF this admission. EF is 54% by echo 10/07/2024
-ambulating without difficulty
-will arrange OP cardiac follow up
-cardiac rehab
-for likely DC to home today
Progress Note - Capacity Planner
Subjective
Date of Service: October 15, 2024
denies CP, SOB. reports some mild R groin soreness
Objective
Labs:
10/15/24 03:13
10/15/24 03:13
Labs
Hgb 11.0 g/dL (12.0-16.0) L 10/15/24 03:13
Hct 32.1 % (37.0-47.0) L 10/15/24 03:13
Plt Count 234 10^3/uL (130-400) 10/15/24 03:13
PT 13.1 Sec (11.4-14.6) 10/13/24 04:14
INR 0.96 10/13/24 04:14
APTT 27.7 Sec (23.4-35.0) 10/13/24 04:14
Sodium 132 mmol/L (135-145) L 10/15/24 03:13
Potassium 3.8 mmol/L (3.5-5.1) 10/15/24 03:13
BUN 23 mg/dl (7-17) H 10/15/24 03:13
Creatinine 1.0 mg/dL (0.6-1.0) 10/15/24 03:13
Glucose 92 mg/dl (70-99) 10/15/24 03:13
Vital Signs and I&O:
Vital Signs
Temp Pulse Resp BP Pulse Ox
97.7 F 87 16 /79 97
10/15/24 07:02 10/15/24 08:00 10/15/24 07:02 10/15/24 07:04 10/15/24 07:02
Vital Signs
Temp Pulse Resp BP Pulse Ox
97.7 F 87 16 91/79 97
10/15/24 07:02 10/15/24 08:00 10/15/24 07:02 10/15/24 07:04 10/15/24 07:02
Intake & Output
10/13/24 10/14/24 10/15/24 10/16/24
07:59 07:59 07:59 07:59
Intake Total 240 / 240 240 / 240 1220 / 1220
Output Total 200 / 200
Balance 240 / 240 240 / 240 1020 / 1020
Physical Exam
Physical Exam
GEN: No distress, awake, alert, oriented x3
HEENT: supple, anicteric, mmm, eomi
LUNGS: Few crackles at bases B/L, no wheezes
CV: Reg, S1/S2, no murmur
ABD: soft, BS+, NT/ND
EXT: No cyanosis, clubbing, edema
NEURO: Gross non-focal
SKIN: Warm, pink, dry. No rash. L groin site soft, c/d/i. R groin site with mild TTP, small firm area underneath dressing noted
[2024-10-15 09:44] VITALS: BP 104/68
[2024-10-15 09:49] VITALS: BP 111/64
[2024-10-15] MEDS: LASIX 20 MG PO (09:50)
[2024-10-15] MEDS: PROTONIX 40 MG PO (09:50)
[2024-10-15] MEDS: PLAVIX 75 MG PO (09:50)
[2024-10-15] MEDS: LOW STRENGTH ASPIRIN 81 MG PO (09:50)
[2024-10-15] MEDS: URSO 750 MG PO (09:51)
[2024-10-15] MEDS: TOPROL XL 37.5 MG PO (09:51)
[2024-10-15] MEDS: ALDACTONE 25 MG PO (09:52)
[2024-10-15] MEDS: FLUSH (NSS) 1 FLUSH IV (09:52)
--- NOTE | 2024-10-15 10:27 | CM ---
Reviewed chart. Met with Mrs. Alvarado to review discharge plans. She states she is feeling well and maybe able to go home soon. She states she has been ambulating in the room. Prior to admission she resides with her spouse , daughter, son-in-law
and grandchildren in a two story home with five steps to enter. Her bedroom/full bathroom is on the first floor. Prior to admission she was independent with ambulation and adls. She has a IPAP Machine at home and no other DME in the home. She has
had [facility] in the past. She has a prescription plan. Medical work-up in progress. The discharge plan is to return home with her family when medically stable.
[2024-10-15 11:25] VITALS: BP 106/68
[2024-10-15] MEDS: COZAAR 25 MG PO (11:45)
--- NOTE | 2024-10-15 13:14 | PTCARENOTE ---
Patient ok for discharge after seen by cardiology and the hospitalist. Reviewed discharge instructions, new medications and follow up with the patient and she states her understanding. Patient discharged home with her .
--- NOTE | 2024-10-15 13:58 | W.DCSUMMARY ---
Discharge Summary
Discharge Data
Date of Admission: 10/06/24
Date of Discharge: 10/15/24
-
Pending Results: No
Hospital Course
79 female COPD HFrEF carotid stenosis PAD type 2 diabetes hypertension fatty liver
Presented from [facility] after undergoing elective cardiac catheterization for evaluation of shortness of breath. Found to have multivessel coronary disease and was transferred to [facility] for CABG evaluation. Was
evaluated by cardiothoracic surgery who did not believe surgical coronary revascularization outcomes would be great therefore recommended high risk PCI stenting. Was taken to the [facility] by cardiology on 10/14/2024 with successful shockwave
lithotripsy to the mid RCA, successful stenting of the mid RCA, angioplasty and stenting of the ostial to mid left main main. Will need to continue DAPT and Repatha. Will need continued outpatient cardiology follow-up.
PROCEDURES:
1. Coronary angiography
2. Angioplasty of the mid RCA with rupture of 3.0 mm noncompliant balloon
3. Shockwave lithotripsy of the mid RCA with a 3.5 mm shockwave balloon with 120 shocks delivered
4. Successful stenting of the mid RCA with 3.5 x 30 mm Savanna stent that was implanted at nominal pressures and postdilated initially with a 3.5 mm noncompliant balloon to 25 hero and focally in the mid RCA with a 3.75 mm noncompliant balloon
5. Angioplasty and stenting of the ostial to mid left main with placement of a 4.0 x 15 mm Savanna stent that was postdilated to high pressures with a 4.0 mm noncompliant balloon
6. Intravascular ultrasound of the left main
Seen and examined on the day of discharge which was 10/15/2024. No abdominal pain back pain no bruising around the bellybutton. No groin pain. No reported of hematoma
Cleared by cardiology for discharge
NAD
Scleral Anicteric
MMM
No JVD
CTABL
RRR, S1/S2
Soft, NT, ND, BS+
Warm, Dry
AAOx3
Calm
More than 30 minutes spent in discharge including
Final examination of the patient
Summarizing hospital stay
Instructions for continuing care to all relevant caregivers
Preparation of discharge records, prescriptions, and referral forms
Total time spent (in minutes): 36mi
Discharge Plan
-
Patient Disposition: Home (Routine Discharge)
Discharge Diagnosis/Procedures: Shockwave with angioplasty and stent to Right Coronary artery, Angioplasty and stent to Left Main artery (10/14)
Condition: Good
Diet: As tolerated, Low Fat, Low Cholesterol and No added salt
Activity: As tolerated
Other Services: Cardiac Rehab
Specialty Instructions: Weigh Daily- Call MD for wt gain/loss 3 lbs overnight/5 lbs in 1 week
Activity Restrictions/Additional Instructions:
Presented from [facility] after undergoing elective cardiac catheterization for evaluation of shortness of breath. Found to have multivessel coronary disease and was transferred to [facility] for CABG evaluation. Was
evaluated by cardiothoracic surgery who did not believe surgical coronary revascularization outcomes would be great therefore recommended high risk PCI stenting. Was taken to the [facility] by cardiology on 10/14/2024 with successful shockwave
lithotripsy to the mid RCA, successful stenting of the mid RCA, angioplasty and stenting of the ostial to mid left main main. Will need to continue DAPT and Repatha. Will need continued outpatient cardiology follow-up.
PROCEDURES:
1. Coronary angiography
2. Angioplasty of the mid RCA with rupture of 3.0 mm noncompliant balloon
3. Shockwave lithotripsy of the mid RCA with a 3.5 mm shockwave balloon with 120 shocks delivered
4. Successful stenting of the mid RCA with 3.5 x 30 mm Savanna stent that was implanted at nominal pressures and postdilated initially with a 3.5 mm noncompliant balloon to 25 hero and focally in the mid RCA with a 3.75 mm noncompliant balloon
5. Angioplasty and stenting of the ostial to mid left main with placement of a 4.0 x 15 mm Savanna stent that was postdilated to high pressures with a 4.0 mm noncompliant balloon
6. Intravascular ultrasound of the left main
Please call to make appointments for Phase II Cardiac Rehab:
[facility]
[address] [place] [address]
[phone]
Stand Alone Forms: DC Instructions- Cath/EP Lab
Referrals:
Jose Regalado MD [Non-Admitting Privileges, Internal Medicine] - 11/11/24 10:00 am
Referral Note: Appointment with JUANI Solano with Dr. Regalado's office. Please call with questions.
Ino Conklin MD [[facility], [facility]]
Additional Discharge Medication Instructions: Take aspirin daily Plavix twice a day until cardiology/PCP recommend to change dosing.
While taking DAPT do not take Xarelto. Once DAPT is discontinued can discuss with outpatient microbiology technician/PCP to resume Xarelto twice a day 2.5 mg with ASA if clinically indicated at that time.
Prescriptions:
New
clopidogrel 75 mg Tablet
75 mg PO DAILY Qty: 30 0RF
pantoprazole 40 mg Tablet,Delayed Release (Dr/Ec)
40 mg PO DAILY Qty: 30 0RF
metoprolol succinate 25 mg Tablet Extended Release 24 Hr
37.5 mg PO BID Qty: 180 0RF
Continued
aspirin 81 mg Tablet,Chewable
81 mg PO DAILY Qty: 90 0RF
multivitamin Tablet
1 tab PO DAILY
calcium carbonate-vitamin D3 600 mg-5 mcg (200 unit) Tablet
1 tab PO DAILY
furosemide 20 mg Tablet
20 mg PO DAILY
ursodiol 250 mg Tablet
750 mg PO DAILY
Repatha Syringe 140 mg/mL Syringe
140 mg SC Q2W
albuterol sulfate 90 mcg/actuation Hfa Aerosol Inhaler
2 puff INHALATION PRN Qty: 8.5 0RF
Rx Instructions:
rescue inhailer
spironolactone 25 mg Tablet
25 mg PO DAILY
losartan 25 mg Tablet
25 mg PO DAILY
Patient Comments:
25 MG - PO daily
Held
rivaroxaban 2.5 mg Tablet
2.5 mg PO BID
Hold Instructions: Resume on 06/10/25. While taking DAPT do not take Xarelto. Once DAPT is discontinued can discuss with outpatient microbiology technician/PCP to resume Xarelto twice a day 2.5 mg with ASA if clinically indicated at that time.
Discontinued
metoprolol succinate 25 mg Tablet Extended Release 24 Hr
25 mg PO BID
Discharge Orders:
Discharge Patient (As Directed); Ordered 10/15/24
Ordered By: Zuhair Murray
Care Plan Goals
Care Plan Goals:
Problem: Readiness for enhanced knowledge related to diagnosis and treatment plan
Goal: Understand your diagnosis and treatment plan needs, including medications if applicable.
Instructions: Know your diagnosis, underlying causes and treatment plan options, including medications if applicable. Consult with your health care team to learn about your diagnosis and treatment plan, including medications if applicable.
Discharge Date and Time
Discharge Date/Time: 10/15/24 13:19
Print Language: SYRIAC
== END 2024-10-15 13:19 | disposition home or self-care (01) | DRG 324 ==
LOC: IVU 16:45
PROVIDERS: Internal Medicine Interventional Cardiology; Nurse Practitioner; Physician Assistant Medical; ADMITTING PHYSICIAN Thoracic Surgery (Cardiothoracic Vascular Surgery); ATTENDING PHYSICIAN Hospitalist; CONSULT PHYSICIAN Internal Medicine; OTHER PHYSICIAN Internal Medicine Cardiovascular Disease
PROC: 02F03ZZ Fragmentation in Coronary Artery, One Artery, Percutaneous Approach (ICD-10-PCS; 2024-10-14)
PROC: B2111ZZ Fluoroscopy of Multiple Coronary Arteries using Low Osmolar Contrast (ICD-10-PCS; 2024-10-14)
PROC: B240ZZ3 Ultrasonography of Single Coronary Artery, Intravascular (ICD-10-PCS; 2024-10-14)
PROC: 027135Z Dilation of Coronary Artery, Two Arteries with Two Drug-eluting Intraluminal Devices, Percutaneous Approach (ICD-10-PCS; 2024-10-14)
PROC: 4A023N7 Measurement of Cardiac Sampling and Pressure, Left Heart, Percutaneous Approach (ICD-10-PCS; 2024-10-14)
DX: I25.118 Atherosclerotic heart disease of native coronary artery with other forms of angina pectoris (principal); I50.22 Chronic systolic (congestive) heart failure; I47.19 Other supraventricular tachycardia; E87.1 Hypo-osmolality and hyponatremia; N17.9 Acute kidney failure, unspecified; I49.1 Atrial premature depolarization; I49.3 Ventricular premature depolarization; R49.0 Dysphonia; E11.51 Type 2 diabetes mellitus with diabetic peripheral angiopathy without gangrene; I11.0 Hypertensive heart disease with heart failure; K76.0 Fatty (change of) liver, not elsewhere classified; J44.9 Chronic obstructive pulmonary disease, unspecified; E78.5 Hyperlipidemia, unspecified; I42.9 Cardiomyopathy, unspecified; I65.29 Occlusion and stenosis of unspecified carotid artery; E11.40 Type 2 diabetes mellitus with diabetic neuropathy, unspecified; G47.33 Obstructive sleep apnea (adult) (pediatric); Z95.820 Peripheral vascular angioplasty status with implants and grafts; Z11.52 Encounter for screening for COVID-19; Z87.01 Personal history of pneumonia (recurrent); Z87.891 Personal history of nicotine dependence; Z79.82 Long term (current) use of aspirin; Z79.01 Long term (current) use of anticoagulants
CPT/HCPCS: 71250; 74174; 80048; 80053; 81003; 81015; 83036; 83735; 85025; 85027; 85347; 85610; 85730; 86850; 86900; 86901; 87070; 87502; 87811; 92972; 92978; 93005; 93308; 93454; 93880; 93970; 94060; 94640; 99152; 99153; C1725; C1753; C1761; C1769; C1874; C1894; C9600; Q9967

== ENCOUNTER 2025-01-13 21:36 | Inpatient (IN) | payer MEDICARE, BC, SELFPAY ==
[2025-01-13 17:18] VITALS: BP 135/70
--- NOTE | 2025-01-13 20:00 | ED.GENMED ---
History of Present Illness
General
Chief Complaint: Abnormal Lab Value
Source: patient and family
Exam Limitations: none
Time Seen by Provider: 01/13/25 19:37
Nursing documentation reviewed up to this point in time: agreed with
History of Present Illness
History of Present Illness:
Patient presents to ED secondary to worsening generalized weakness and dizziness, especially when standing up, over the past 1 week. Patient was admitted at [facility] 2 weeks ago where she was treated for pulmonary edema and number of
medication adjustments were made. Patient has lost approximately 4 pounds of weight since being discharged home. Denies fever or chills. Denies chest pain or shortness of breath. Denies nausea or vomiting. Denies diarrhea. Denies headache.
Denies leg pain or swelling. Patient does report decreased appetite.
Review of Systems
Review of Systems
Allergies reviewed?: Yes
All Other Systems: ROS reviewed and negative except as documented in HPI and ROS
Constitutional: Reports no symptoms; Denies fever
Respiratory: Reports no symptoms; Denies cough or trouble breathing
Cardiac: Reports no symptoms; Denies chest pain
ABD/GI: Reports no symptoms; Denies vomiting or diarrhea
Musculoskeletal: Reports no symptoms
Skin: Reports no symptoms
Neurological: Reports dizzy and weakness; Denies headache
Phy Exam
Physical Exam
Physical Exam:
Physical Exam
General: mild distress, not acutely ill. afebrile
Head: nc/at. eomi
Neck: supple. no jvd.
Heart: s1/s2 regular rate and rhythm.
Lungs: no acute respiratory distress. clear bilaterally
Abdomen: normal bowel sounds. not tender.
Neuro: alert and oriented x 3. no focal neurological deficits
Skin: no rash
Psychiatric: well kept. interactive and cooperative
Extremities: no edema. no calf tenderness.
Course
Orders/Labs/Results
Orders:
Orders
01/13/25 Dinner
Cholesterol Lowering
Fluid Restriction: 1200 mL/day (40 oz)
Cholesterol Lowering: Sodium, 2 Gram
01/13/25 17:26
EKG [Electrocardiogram (*1)] Urgent
Reason for Study: Other
Other Reason for Exam: abnormal labs
01/13/25 17:27
EKG- Treatment ONCE
01/13/25 20:01
0.9% Sodium Chloride 250 ml [Nss] 250 ml IV BOLUS
01/13/25 20:35
Osmolality, Random Urine Urgent
Date Specimen was Collected: 01/13/25
Time Specimen was Collected: 20:27
Urinalysis Reflex To Culture Urgent
Date Specimen was Collected: 01/13/25
Time Specimen was Collected: 20:27
Urine Microscopic Reflex Cult Urgent
Urine Sodium Urgent
Date Specimen was Collected: 01/13/25
Time Specimen was Collected: 20:27
Urine Culture Urgent
JANIS Source: U
Specimen Description:
Date Specimen was Collected: 01/13/25
Time Specimen was Collected: 20:27
01/13/25 20:39
Complete Blood Count/With Diff Urgent
Magnesium Urgent
Serum Osmolality Urgent
01/13/25 21:08
Admit/Transfer Patient As Directed
Co-Sign Provider:
Level of Care: Inpatient admission
Assign to:: Telemetry
Physician / Group: Nelsy
Diagnosis: Hyponatremia, RIO
Reason for Telemetry: Other
Other Reason for Telemetry: Hyponatremia
Date to Stop Telemetry: 01/15/25
Time to Stop Telemetry: 11:00
Reason for Hospitalization: RIO, acute hyponatremia
Expected length of stay greater than two midnights?: Yes
ELOS- Estimated Length of Stay in days: 2
I certify the patient meets the requirements for IP care: Yes
Weight As Directed
Frequency: Once
01/13/25 21:09
PRN Pain Medication Management As Directed
May give lesser potent ordered pain med per pt: Yes
preference::
Protocol:: Medication orders for pain may be administered in a
manner that supports deferring to patient preference
when the pt is:
- Requesting an ordered lesser potent pain medication.
Least to most potent pain medications are defined
as: acetaminophen < NSAID < tramadol < opioids
(morphine, oxycodone, hydromorphone).
- Requesting a lesser dose of the same medication IF
ORDERED.
- Requesting a less intrusive route of administration
if both routes are prescribed by the provider (PO <
IV).
01/13/25 21:10
Code Status As Directed
Resuscitation Status: Full Code
01/13/25 22:46
0.9% Sodium Chloride 1000 ml [Nss] 1,000 ml IV 100 mls/hr
Acetaminophen [Tylenol] 650 mg PO Q4HPRN PRN
Albuterol [ProAIR HFA INHALER] 2 puff INH R DAILYPRN PRN
Bisacodyl [Dulcolax] 10 mg RECTAL [id number] PRN
Docusate W/Senna [Senokot-S] 1 tablet PO BIDPRN PRN
HydrALAZINE [Apresoline] 5 mg IV Q4HPRN PRN
Nitroglycerin Sublingual [Nitrostat (Sublingual)] 0.4 mg SL [id number] PRN
Ondansetron Injectable [Zofran] 4 mg IV Q6HPRN PRN
Polyethylene Glycol Powder [Miralax] 17 grams PO DAILYPRN PRN
01/13/25 22:46
VTE Contraindication Routine
VTE Mechanical Device Contraindication: Medical Contraindication
Pharmocologic Contraindication: Medical Contraindication
Activity As Directed
Activity Level: With Assistance
Orthostatic Vital Signs As Directed
Orthostatic VS Frequency: Daily
Vital Signs As Directed
Frequency: Per unit guidelines
Weight As Directed
Frequency: Daily
Pulse Ox/spot Check [RESP] Routine
Quantity: 1
01/13/25 23:55
BMP [Basic Metabolic Panel] Routine
01/14/25 06:00
Basic Metabolic Panel IN AM
Complete Blood Count/No Diff IN AM
Cortisol, Random IN AM
Magnesium IN AM
TSH IN AM
01/14/25 08:00
Clopidogrel Bisulfate [Plavix] 75 mg PO DAILY
Metoprolol Xl [Toprol Xl] 50 mg PO BID
Pantoprazole [Protonix] 40 mg PO DAILY
Rivaroxaban [Xarelto] 2.5 mg PO BID
Ursodiol [Calin] 750 mg PO DAILY
01/15/25 11:00
DC Protocol for Telemetry ONCE
Abnormal Lab Results
01/13/25 01/13/25
20:35 20:39
WBC 15.4 H 10^3/uL
(4.8-10.8)
RBC 3.65 L 10^6/uL
(4.20-5.40)
Hgb 11.2 L g/dL
(12.0-16.0)
Hct 31.6 L %
(37.0-47.0)
Abs Immat Gran (auto) 0.1 H 10^3/uL
(0-0.05)
Absolute Neuts (auto) 12.5 H 10^3/uL
(1.4-6.5)
Absolute Monos (auto) 1.4 H 10^3/uL
(0.1-0.6)
Immature Gran % 0.6 H %
(0-0.5)
Neutrophils % 81.4 H %
(42.2-75.2)
Lymphocytes % 8.9 L %
(20.5-51.1)
Magnesium 2.4 H mg/dl
(1.6-2.3)
Ur Occult Blood Reflex 3+ A
(Negative)
Leukocyte Esterase Rfl 3+ A
(Negative)
Urine WBC (Reflex) >100 A /HPF
(0-5)
Urine Bacteria (Reflex) Many A
(Negative)
Urine Sodium 21 L mmol/L
(30-90)
Urine Albumin (Reflex) 2+ A
(Neg - Trace)
01/13/25 20:39
Vital Signs
Initial and Last Documented VS:
Initial Vital Signs
Temp Pulse Resp BP Pulse Ox
97.9 F 56 16 135/70 98
01/13/25 17:18 01/13/25 17:18 01/13/25 17:18 01/13/25 17:18 01/13/25 17:18
Last Documented Vital Signs
Temp Pulse Resp BP Pulse Ox
98.1 F 67 18 165/68 99
01/14/25 00:06 01/14/25 00:06 01/14/25 00:06 01/14/25 00:06 01/14/25 00:06
MDM/Problems Addressed
MDM/Problems Addressed:
Outpatient blood work from earlier today reviewed, significant for sodium of 125 and creatinine 3.2, both acute. Patient may have been over diuresed after she was admitted and treated for pulm edema at [facility]. As such, patient will
be admitted for further evaluation and treatment.
*Pulse Oximetry
SaO2: 98
Oxygen Mode of Delivery: Room air
Patient hypoxic: no
*Critical Care Note
Total Time (30-74mins, 75-104mins- exclusive of procedures): Not Applicable
ED Attending Note
-
Portions of this chart may have been created with voice recognition software.� Occasional wrong word or��sound alike� substitutions may have occurred due to the inherent limitations of voice recognition software.
Discharge Plan
Departure
Patient Disposition: Admit
Date of Disposition: 01/13/25
Time of Disposition: 20:06
Admit to: Telemetry
Presentation/result/management discussed w/ accepting MD/DO: Hospitalist
Discharge Problem:
Acute hyponatremia, Acute renal failure (ARF)
Interventions
Interventions:
*Risk Screen - Suicide Last Done: 01/13/25 17:18
*General Assessment Last Done: 01/13/25 17:18
*Neglect/Abuse Screening Last Done: 01/13/25 20:50
*ED- Fall Risk Assessment Last Done: 01/13/25 21:00
*ED COVID-19 Vaccine History Last Done: 01/13/25 17:18
*ED Influenza Vaccine History Last Done: 01/13/25 17:18
*Nursing Disposition Last Done: 01/13/25 22:43
Discharge Date and Time
Discharge Date/Time: 01/13/25 22:44
--- NOTE | 2025-01-13 20:22 | HPS.HSE ---
Family Physician
-
Family Physician: Ino Conklin MD
Chief Complaint
-
Abnormal lab value
History of Present Illness
This is a 79-year-old female was past medical history significant for heart failure with reduced EF of 40 to 45%, COPD not on home O2, carotid stenosis, peripheral artery disease status post bypass, [id number] diabetes, hypertension,
presents to the emergency department after being discharged from [facility] with hyponatremia and a sodium of 125 as well as acute renal failure with a creatinine of 3.2.
Patient has a past medical history of ischemic cardiomyopathy recently had a cardiac stent placed in September in the setting of CHF exacerbation. She was also recently hospitalized again for CHF exacerbation at [facility]. Statin she was
discharged on January 02. She was more recently placed on additional BP medications as well as diuretics. Appears that diuretic regiment was intensified to torsemide 40 mg by mouth daily, spironolactone 25 mg daily and she continued on losartan
12.5 milligrams p.o. daily. During that admission she was sleep diuresed although I am not aware of the weight difference between admit and discharge. Weight was 47.6 kg on October 15 when she was here at [facility]. Patient and family
reports that for the last week she has had increasing fatigue and weakness. PMD did the blood work about a week ago and she was found to have a low sodium at that time which they were monitoring. They were evaluating her for visiting nurse when
PMD did not do blood work today and called him with concerning findings of low sodium and acute renal failure. Patient was not brought to the emergency department.
Patient denies any contrast exposure. She denies urinary retention. She does report frequency which she attributes to diuretics.
In the emergency department she was afebrile, blood pressure was 135/70 with a pulse of 76 that she was satting 98% on room air. ECG shows sinus rhythm with PACs. She has a known Q waves in the inferior leads.
CBC was unremarkable except for a white count of 13.4. Electrolytes show a sodium of 125 normal potassium, BUN is 88 from 23, creatinine 3.2 up from 1.0. UA shows 3+ leukocyte esterase at this time. Urine awesome's is elevated at 324.
Medical History
Past Medical History
Past Medical History: Reports Other
Additional Past Medical History:
COPD w/LLL PNA admit for intubation (09/02/24)
HFrEF (40-45%)
carotid stenosis
PAD
T2DM
HTN
fatty liver
Past Surgical History: Reports Other (L internal iliac stent f/b fem-pop bypass (2017), lithotripsy in stent stenosis & new L common iliac stent (2022))
Social History
Tobacco: Former Smoker (quit 10 year ago)
Alcohol: Occasional
Drug: None
Personal:
Living: With Family
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
Family History
Family History: Not pertinent
Allergies / Home Medications
Allergies reflects when Allergies were last updated in [facility].
Home Medications with original date entered in [facility]
Allergy/Medication List:
Allergies
Allergy/AdvReac Type Severity Reaction Status Date / Time
No Known Allergies Allergy Verified 09/01/24 21:26
Home Medications
aspirin 81 mg chewable tablet 81 mg PO DAILY #90 tabs 10/24/22
calcium 600 mg (as carbonate)-vitamin D3 5 mcg (200 unit) tablet 1 tab PO DAILY 09/02/24
evolocumab 140 mg/mL subcutaneous syringe (Repatha Syringe) 140 mg SC Q2W 09/02/24
furosemide 20 mg tablet 20 mg PO DAILY 09/02/24
multivitamin 1 tab PO DAILY 09/02/24
rivaroxaban 2.5 mg tablet 2.5 mg PO BID Blood Clot Prevention/Tx 09/02/24
Held on 10/15/24. Instructions: Resume on 06/10/25. While taking DAPT do not take Xarelto. Once DAPT is discontinued can discuss with outpatient stereoplotter operator/PCP to resume Xarelto twice a day 2.5 mg with ASA if clinically indicated at that time.
ursodiol 250 mg tablet 750 mg PO DAILY 09/02/24
albuterol sulfate 90 mcg/actuation aerosol inhaler 2 puff inhalation PRN shortness of breath #8.5 grams 09/03/24
losartan 25 mg tablet 25 mg PO DAILY 10/06/24
spironolactone 25 mg tablet 25 mg PO DAILY 10/06/24
clopidogrel 75 mg tablet 75 mg PO DAILY #30 tabs 10/15/24
metoprolol succinate 25 mg tablet,extended release 24 hr 37.5 mg (1.5 x 25 mg) PO BID #180 tabs 10/15/24
pantoprazole 40 mg tablet,delayed release 40 mg PO DAILY #30 tabs 10/15/24
Review of Systems
-
Constitutional: Reports Weight Loss and Fatigue
EENT: Reports No Symptoms
Respiratory: Reports No Symptoms
Cardiac: Reports No Symptoms
Abdomen/GI: Reports No Symptoms
: Reports No Symptoms
Musculoskeletal: Reports No Symptoms
Skin: Reports No Symptoms
Neurological: Reports No Symptoms
Endocrine: Reports No Symptoms
Hematologic/Lymphatic: Reports No Symptoms
Psych: Reports No Symptoms
Physical Exam
Vital Signs
Vital Signs
Temp Pulse Resp BP Pulse Ox
97.9 F 56 16 135/70 98
01/13/25 17:18 01/13/25 17:18 01/13/25 17:18 01/13/25 17:18 01/13/25 20:01
Physical Exam
General: Well Developed, Well Nourished, No Apparent Distress and Conversant
HEENT: NormoCephalic, Anicteric, Moist mucous membranes, PERRLA and Oxygen (BiPAP use)
Respiratory: Clear
Cardiac: S1/S2 and Regular Rhythm
Breast: Deferred by me
GI: Soft, Non Tender, Non Distended and Normal Bowel Sounds
Rectal: Deferred by Provider
Genito-urinary: Deferred by me
Musculoskeletal: No Clubbing, No Cyanosis and No Edema
Skin: Warm and Dry
Neuro: AO x 3, No Motor Deficits, No Sensory Deficits and Other (R carotid bruit)
Hematologic/Lymphatic: No Lymphadenopathy
Psych: Calm and Intact Judgment/Insight
Data Reviewed
-
Medical Tests (Nuc Med, Echo, EKG etc): Image Personally Visualized and interpreted
Lab Data: Labs Reviewed by me
Old Records: Reviewed
Impression/Plan
-
IMPRESSION:
Is a 79-year-old female with past medical history of CHF with reduced EF of around 40%, atrial fibrillation on anticoagulation, CAD status post stenting most recently in September, COPD not on home O2 presents to the emergency department for abnormal
labs where she was found to have a sodium of 135 and a creatinine of 3.2. She is euvolemic to hypovolemic on examination. She has no evidence of volume overload at this time. Lungs are clear she has no peripheral edema no JVD. Cardiac exam was
unremarkable. Suspect these findings are secondary to diuretic up titration and some hypovolemia.
PLAN:
Hyponatremia -suspect secondary to hypovolemia and a prerenal state in the setting of uptitrated diuretic use.
- Admit to telemetry for now
- Hold torsemide, hold spironolactone temporarily
- IV fluids overnight with total of 1 L
- Checking urine sodium, TSH and cortisol
- Serum sodium in 6 hours after 500 ml initial bolus
- Will still maintain free water restriction to 1 L daily
- Monitor ins and outs
-Orthostatic vital sign
- Nephrology consultation
RIO-suspect prerenal azotemia.
- Hold spironolactone, losartan
- IV fluids as above
- Renal dose medications
- Nephrology consult
CHF-euvolemic to hypovolemic
- Holding diuretics temporarily
� Continue beta-blockade
� Continue daily weights and ins and outs
Atrial fibrillation -currently rate controlled with PACs
- Continue metoprolol
- Continue Xarelto
CAD
- Continue Xarelto and Plavix, hold of aspirin
- Continue Imdur 30 mg
COPD -stable no acute issues
- As needed nebs
- Continue or standing inhalers
DVT processes�on Xarelto
CODE STATUS�full code
[2025-01-13 20:26] VITALS: BP 155/72
[2025-01-13 20:46] LABS: Hematocrit 31.6 % (37.0-47.0); Hemoglobin 11.2 g/dL (12.0-16.0); Mean Corp Hgb Conc. 35.4 g/dL (33.0-37.0); Mean Corpuscular Volume 86.6 fL (81.0-99.0); Nucleated Red Blood Cells % 0 %; Platelet Count 198 10^3/uL (130-400); Red Cell Dist. Width 12.7 % (11.5-14.5)
[2025-01-13 20:49] LABS: Urine Character Cloudy (Clear)
[2025-01-13 20:55] LABS: Urine Squamous Cell 0-2 /LPF (Few)
[2025-01-13] MEDS: NSS 250 IV (20:55)
[2025-01-13 20:56] LABS: Urine Red Blood Cell 0-2 /HPF (0-2); Urine White Cell >100 /HPF (0-5)
[2025-01-13 21:11] LABS: Magnesium 2.4 mg/dl (1.6-2.3)
--- NOTE | 2025-01-13 22:19 | PTCARENOTE ---
Patient received from the ER at approximately 2300. Patient is pleasant, oriented, call velazquez within reach.
[2025-01-13] MEDS: NSS 1000 IV (23:07)
[2025-01-13] MEDS: STERILE WATER FOR INJECTION 10 ML IV (23:48)
[2025-01-13] MEDS: ROCEPHIN 1000 MG IV (23:48)
[2025-01-14] VITALS (8 sets, daily range): BP systolic 101–169; BP diastolic 59–74; PULSE 64; O2SAT 98; BMI 17.4
[2025-01-14 05:30] LABS: COVID-19 Antigen Negative (Negative)
[2025-01-14 07:34] LABS: Hematocrit 30.3 % (37.0-47.0); Hemoglobin 10.5 g/dL (12.0-16.0); Mean Corp Hgb Conc. 34.7 g/dL (33.0-37.0); Mean Corpuscular Volume 85.6 fL (81.0-99.0); Platelet Count 195 10^3/uL (130-400); Red Cell Dist. Width 12.6 % (11.5-14.5)
[2025-01-14] MEDS: PLAVIX 75 MG PO (07:58)
[2025-01-14] MEDS: XARELTO 2.5 MG PO ×2 (07:58→19:56)
[2025-01-14] MEDS: TOPROL XL 50 MG PO ×2 (07:58→19:56)
[2025-01-14] MEDS: PROTONIX 40 MG PO (07:58)
[2025-01-14] MEDS: URSO 750 MG PO (08:00)
[2025-01-14 08:09] LABS: Blood Urea Nitrogen 76 mg/dl (7-17); Calcium 8.6 mg/dl (8.4-10.2); Carbon Dioxide 26 mmol/L (22-30); Chloride 92 mmol/L (98-107); Estimated Creatinine Clearance 12 ml/min; Glucose 97 mg/dl (70-99); Magnesium 2.2 mg/dl (1.6-2.3); Potassium 3.7 mmol/L (3.5-5.1); Sodium 126 mmol/L (135-145); eGFR 17.51
--- NOTE | 2025-01-14 08:20 | W.PN.HOSP.TC ---
Addendum entered and electronically signed by Maria Ines Hope MD 01/14/25 13:28:
# Underweight
Addendum entered and electronically signed by Maria Ines Hope MD 01/14/25 08:40:
# Also possible UTI
Follow urine culture,
cont current Ceftriaxone for now
Original Note:
Today's Communication/Plan
-
see A/P
Assessment / Plan
Assessment / Plan
HPI: 79-year-old female with past medical history of CHF with reduced EF of around 40%, atrial fibrillation on anticoagulation, CAD status post stenting most recently in September, COPD not on home O2 presented for abnormal labs where she was found to
have a sodium of 125 and a creatinine of 3.2. She was euvolemic to hypovolemic on examination. Suspect these findings are secondary to diuretic up titration and some hypovolemia.
She was recently hospitalized for CHF exacerbation at [facility], discharged on January 02. She was more recently placed on additional BP medications as well as diuretics. Appears that diuretic regiment was intensified to torsemide 40
mg by mouth daily, spironolactone 25 mg daily and she continued on losartan 12.5 mg p.o. daily.
A/P:
# Hyponatremia suspect secondary to hypovolemia in setting of uptitrated diuretic use.
Hold torsemide
s/p NSS, cont gentle hydration
Noted urine sodium,
Follow TSH and cortisol
Will still maintain free water restriction to 1 L daily
Monitor ins and outs
Orthostatic vital sign
Nephrology consultation
# RIO-suspect prerenal azotemia.
Hold torsemide,
Hold spironolactone and losartan
IV fluids as above
Renal dose medications
Nephrology consult as above
SCr improving from 3.2 to 2.7, cont to monitor
# Chronic HFmrEF
Holding diuretics temporarily
Continue daily weights and ins and outs
Continue beta-blockade
# CAD
Continue Xarelto and Plavix, holding aspirin
Continue Imdur 30 mg
# COPD, stable no acute issues
As needed nebs
Continue or standing inhalers
# Chronic Xarelto for h/o PAD
# Carotid stenosis
# PAD s/p left common iliac stenting and left femoral-popliteal bypass
DVT processes�on Xarelto
CODE STATUS�full code
updated son on the phone
Anticipated Discharge: 24 - 48 hours
Subjective/Interval History
-
Date of Service: January 14, 2025
Objective Data
-
Labs:
Laboratory Results
01/13/25 01/14/25 01/14/25
20:39 00:30 06:22
WBC 15.4 H 13.1 H
Hgb 11.2 L 10.5 L
Hct 31.6 L 30.3 L
Plt Count 198 195
Sodium Cancelled 126 L
Potassium Cancelled 3.7
Chloride Cancelled 92 L
Carbon Dioxide Cancelled 26
BUN Cancelled 76 H
Creatinine Cancelled 2.7 H
Glucose Cancelled 97
Calcium Cancelled 8.6
Vital Signs:
Vital Signs
Temp Pulse Resp BP Pulse Ox
37.6 C 74 18 169/71 95
01/14/25 04:08 01/14/25 04:08 01/14/25 04:08 01/14/25 04:08 01/14/25 04:08
I&O
01/13/25 01/14/25 01/15/25
06:59 06:59 06:59
Intake Total 120 / 120
Balance 120 / 120
Review of Systems
-
History Source: Patient
All other systems: Reviewed and negative
Physical Exam
-
General: Well Developed, No Apparent Distress, Comfortable and Conversant
HEENT: Normocephalic and Atraumatic
Respiratory: Clear to Auscultation and Non Labored Respirations; Negative Accessory Resp Muscle Use
Cardiac: Regular Rhythm and S1/S2
GI: Soft, Nontender and Nondistended
Skin: Warm and Dry
Neuro: Awake and Alert
Psych: Calm and Intact Judgement/Insight
Data Reviewed
-
Labs: Labs Reviewed by me, Discussed with Patient and Discussed with Family
[2025-01-14 08:36] LABS: Cortisol, Random 24.5 ug/dl; TSH 2.30 uIU/ml (0.47-4.68)
--- NOTE | 2025-01-14 11:02 | PN.CDI ---
CDI
- -
CDI:
Physician Documentation Request
Admit Date: 01/13/25 21:36
Dear Doctor Jayy,
Please review the following and provide your response in the progress notes.
Clinical Indicators:
Height: 5 ft 2 in
Weight: 95 lb
BMI:17.4
If possible, please provide an associated diagnosis related to the abnormal BMI, such as:
BMI < or = to 19
Underweight
Cachectic
- Other
Use of terms such as suspected, likely, concern for, or probable (associated with a specific diagnosis that is being evaluated, monitored, or treated as if it exists) are acceptable and can be coded in the inpatient setting, when documented at the
time of discharge.
Thank you,
Bre Kendall RN
CDI Specialist
[place] [facility]
Please use your independent medical judgment in providing your response.
--- NOTE | 2025-01-14 12:10 | W.CON.NEPH ---
Consultation
-
Date/Time Consultation Requested: January 14, 2025 8 AM
Date/Time Consultation Performed: January 14, 2025 12
Requesting Provider: Maria Ines Hope
Performing Provider: Dr. Jackson
Reason for Consultation: Acute kidney injury and hyponatremia
Medical History
-
Chief Complaint: Acute on chronic kidney injury and hyponatremia
History of Present Illness:
79-year-old female was past medical history significant for heart failure with reduced EF of 40 to 45%, COPD not on home O2, carotid stenosis, peripheral artery disease status post bypass, txp-xtdnrhf-rfjdxtdta diabetes, hypertension, presents to
the emergency department after being discharged from [facility] with hyponatremia and a sodium of 125 as well as acute renal failure with a creatinine of 3.2.
Patient has a past medical history of ischemic cardiomyopathy recently had a cardiac stent placed in September in the setting of CHF exacerbation. She was also recently hospitalized again for CHF exacerbation at [facility].
Renal consultation for acute kidney injury creatinine 3.2 hyponatremia symptomatic fatigue.
Was given IV fluids overnight with improvement in creatinine 2.7 sodium remains at 126 from 125
Past Medical History
Past medical history significant for heart failure with reduced EF of 40 to 45%, COPD not on home O2, carotid stenosis, peripheral artery disease status post bypass, iie-gjjawxn-vsdqmhlio diabetes, hypertension,
Social History
Tobacco: Smoker
Alcohol: None
Family History
Family History: Not Pertinent
Allergies / Home Medications
Allergy/AdvReac Type Severity Reaction Status Date / Time
No Known Allergies Allergy Verified 09/01/24 21:26
�Medication �Instructions �Recorded �Confirmed �Type
aspirin 81 mg chewable tablet 81 mg PO DAILY #90 tabs 10/24/22 01/13/25 Rx
calcium 600 mg (as 1 tab PO DAILY Supplement 09/02/24 01/13/25 History
carbonate)-vitamin D3 5 mcg (200
unit) tablet
evolocumab 140 mg/mL subcutaneous 140 mg SC Q2W High Cholesterol 09/02/24 01/13/25 History
syringe (Repatha Syringe)
furosemide 20 mg tablet 20 mg PO DAILY Fluid 09/02/24 01/13/25 History
Retention/Swelling
multivitamin 1 tab PO DAILY Supplement 09/02/24 01/13/25 History
rivaroxaban 2.5 mg tablet 2.5 mg PO BID Blood Clot 09/02/24 01/13/25 History
Held on 10/15/24. Prevention/Tx
Instructions: Resume on
06/10/25. While taking DAPT
do not take Xarelto. Once
DAPT is discontinued can
discuss with outpatient
[facility] former/PCP to resume
Xarelto twice a day 2.5 mg
with ASA if clinically
indicated at that time.
ursodiol 250 mg tablet 750 mg PO DAILY Gallstone 09/02/24 10/07/24 History
Dissolution Age
albuterol sulfate 90 mcg/actuation 2 puff inhalation PRN shortness of 09/03/24 01/13/25 Rx
aerosol inhaler breath #8.5 grams
losartan 25 mg tablet 25 mg PO DAILY Blood Pressure 10/06/24 01/13/25 History
spironolactone 25 mg tablet 25 mg PO DAILY Fluid 10/06/24 01/13/25 History
Retention/Swelling
clopidogrel 75 mg tablet 75 mg PO DAILY #30 tabs 10/15/24 01/13/25 Rx
metoprolol succinate 25 mg 37.5 mg (1.5 x 25 mg) PO BID #180 10/15/24 01/13/25 Rx
tablet,extended release 24 hr tabs
pantoprazole 40 mg tablet,delayed 40 mg PO DAILY #30 tabs 10/15/24 01/13/25 Rx
release
Review of Systems
-
Weakness no shortness of breath
All other systems: Negative unless noted
Physical Exam
Vital Signs
Vital Signs
Temp Pulse Resp BP Pulse Ox
97.4 F 63 18 139/74 97
01/14/25 11:00 01/14/25 11:00 01/14/25 11:00 01/14/25 11:00 01/14/25 11:00
Lab Results
WBC 13.1 10^3/uL (4.8-10.8) H 01/14/25 06:22
RBC 3.54 10^6/uL (4.20-5.40) L 01/14/25 06:22
Hgb 10.5 g/dL (12.0-16.0) L 01/14/25 06:22
Hct 30.3 % (37.0-47.0) L 01/14/25 06:22
Plt Count 195 10^3/uL (130-400) 01/14/25 06:22
Sodium 126 mmol/L (135-145) L 01/14/25 06:22
Potassium 3.7 mmol/L (3.5-5.1) 01/14/25 06:22
Chloride 92 mmol/L (98-107) L 01/14/25 06:22
Carbon Dioxide 26 mmol/L (22-30) 01/14/25 06:22
BUN 76 mg/dl (7-17) H 01/14/25 06:22
Creatinine 2.7 mg/dL (0.6-1.0) H 01/14/25 06:22
eGFR 17.51 01/14/25 06:22
Glucose 97 mg/dl (70-99) 01/14/25 06:22
Calcium 8.6 mg/dl (8.4-10.2) 01/14/25 06:22
Physical Exam
General no acute distress
HEENT no cephalic atraumatic extraocular muscle intact no scleral icterus no JVD neck supple
lungs clear to auscultation bilateral
heart regular S1-S2 positive
abdomen soft nontender positive bowel sounds
extremities no edema pulses present bilateral
Neurologically nonfocal alert and oriented x 3
Skin no lesions no abrasions no petechiae
Psych normal affect no bizarre behavior
Data Reviewed
-
Labs: Labs Reviewed by me, Discussed with Nurse, Discussed with Patient and Discussed with Family
Assessment/Plan
-
79-year-old female was past medical history significant for heart failure with reduced EF of 40 to 45%, COPD not on home O2, carotid stenosis, peripheral artery disease status post bypass, ipm-fcsnnyc-bsmsaygzh diabetes, hypertension, presents to
the emergency department after being discharged from [facility] with hyponatremia and a sodium of 125 as well as acute renal failure with a creatinine of 3.2.
Patient has a past medical history of ischemic cardiomyopathy recently had a cardiac stent placed in September in the setting of CHF exacerbation. She was also recently hospitalized again for CHF exacerbation at [facility].
Renal consultation for acute kidney injury creatinine 3.2 hyponatremia symptomatic fatigue.
Was given IV fluids overnight with improvement in creatinine 2.7 sodium remains at 126 from 125
Impression.
Acute kidney injury on chronic kidney disease at baseline creatinine 1.1
Hyponatremia multifactorial= chronic COPD/thiazide diuretic
CHF compensated= currently 43 kg/94 pounds= 99 pounds EDW
COPD= stable
Leukocytosis UTI?
Plan.
Agree with holding Lasix/spironolactone/losartan
On antibiotics for presumed UTI
Agree likely prerenal although a component of excessive ADH in the setting of chronic COPD
Will give 1 dose of Samsca as this will help with her sodium without affecting creatinine
Hold on any more IV fluids at this time
Appetite is good I discussed increasing her protein with a modest fluid restriction of 48 ounces
Moderate salt restriction of 2000 mg
Discussed this with the patient and her at the bedside
Symptoms related to hyponatremia most likely (UTI ) and from a discharge standpoint once her sodium is improved to 130 would be okay for discharge from a renal standpoint.
Suggest holding spironolactone and losartan on discharge
I could not see her in close follow-up in the next 1 to 2 weeks
[2025-01-14] MEDS: SAMSCA 15 MG PO (12:55)
--- NOTE | 2025-01-14 13:19 | CM ---
NATALY met with Mrs. Alvarado to review discharge plans. She states she is feeling well and maybe able to go home soon. She states she has been ambulating in the room. Prior to admission she resides with her spouse, daughter, son-in-law and
grandchildren in a two story home with five steps to enter. Her bedroom/full bathroom is on the first floor. Prior to admission she was independent with ambulation and adls. She has a IPAP Machine at home and no other DME in the home. She has had
[facility] in the past. She has a prescription plan. Medical work-up in progress.
Plan: Discharge to home with family when medically stable.
PCP: Dr. Conklin
Pharmacy: [address]
[2025-01-14] MEDS: ROCEPHIN 1000 MG IV (23:13)
[2025-01-14] MEDS: STERILE WATER FOR INJECTION 10 ML IV (23:13)
[2025-01-15 03:00] VITALS: BP 149/66
[2025-01-15 05:55] VITALS: BMI 17.8
[2025-01-15 07:08] LABS: Hematocrit 32.0 % (37.0-47.0); Hemoglobin 11.2 g/dL (12.0-16.0); Mean Corp Hgb Conc. 35.0 g/dL (33.0-37.0); Mean Corpuscular Volume 87.9 fL (81.0-99.0); Platelet Count 235 10^3/uL (130-400); Red Cell Dist. Width 12.6 % (11.5-14.5)
[2025-01-15] MEDS: PROTONIX 40 MG PO (07:18)
[2025-01-15] MEDS: XARELTO 2.5 MG PO ×2 (07:18→19:34)
[2025-01-15] MEDS: URSO 750 MG PO (07:18)
[2025-01-15] MEDS: PLAVIX 75 MG PO (07:18)
[2025-01-15] MEDS: TOPROL XL 50 MG PO (07:18)
[2025-01-15 07:27] LABS: Blood Urea Nitrogen 79 mg/dl (7-17); Calcium 9.0 mg/dl (8.4-10.2); Carbon Dioxide 29 mmol/L (22-30); Chloride 95 mmol/L (98-107); Estimated Creatinine Clearance 15 ml/min; Glucose 100 mg/dl (70-99); Magnesium 2.4 mg/dl (1.6-2.3); Potassium 3.9 mmol/L (3.5-5.1); Sodium 131 mmol/L (135-145); eGFR 22.39
[2025-01-15 08:24] VITALS: BP 167/70
[2025-01-15] MEDS: SAMSCA 7.5 MG PO (09:53)
--- NOTE | 2025-01-15 10:40 | W.PN.HOSP.TC ---
Today's Communication/Plan
-
see A/P
Assessment / Plan
Assessment / Plan
HPI: 79-year-old female with past medical history of CHF with reduced EF of around 40%, atrial fibrillation on anticoagulation, CAD status post stenting most recently in September, COPD not on home O2 presented for abnormal labs where she was found to
have a sodium of 125 and a creatinine of 3.2. She was euvolemic to hypovolemic on examination. Suspect these findings are secondary to diuretic up titration and some hypovolemia.
She was recently hospitalized for CHF exacerbation at [facility], discharged on January 02. She was more recently placed on additional BP medications as well as diuretics. Appears that diuretic regiment was intensified to torsemide 40
mg by mouth daily, spironolactone 25 mg daily and she continued on losartan 12.5 mg p.o. daily.
A/P:
# Hyponatremia suspect secondary to hypovolemia in setting of uptitrated diuretic use.
Hold torsemide
s/p IVF, cont to monitor without further IVF
TSH WNL at 2.3, random cortisol WNL at 24.5
Free water restriction adjusted to 48 ounces
s/p Samsca per renal
Nephrology on board
# RIO-suspect prerenal azotemia.
Hold torsemide,
Hold spironolactone and losartan
s/p IV fluid
SCr improved from 3.2 to 2.2 today, cont to monitor
Renal dose medications
Nephrology on board
# UTI with E coli
Follow urine culture,
cont current Ceftriaxone for now
# Chronic HFmrEF
Holding diuretics temporarily
Continue daily weights and ins and outs
Continue beta-blockade, change Toprol to Coreg for better BP control
Holding spironolactone and losartan for now and on discharge
Could consider cardiology CS prior to DC for med recc
# CAD
Continue Xarelto and Plavix, holding aspirin
Continue Imdur 30 mg
# COPD, stable no acute issues
As needed nebs
Continue or standing inhalers
# Chronic Xarelto for h/o PAD
# Carotid stenosis
# PAD s/p left common iliac stenting and left femoral-popliteal bypass
DVT processes�on Xarelto
CODE STATUS�full code
PT: home PT vs no need
DW daughter and granddaughter at bedside. Extensive discussion. Answered all questions.
total time 51 min
Anticipated Discharge: Within 24 hours
Subjective/Interval History
-
Date of Service: January 15, 2025
Objective Data
-
Labs:
Laboratory Results
01/15/25
06:17
WBC 8.3
Hgb 11.2 L
Hct 32.0 L
Plt Count 235 D
Sodium 131 L
Potassium 3.9
Chloride 95 L
Carbon Dioxide 29
BUN 79 H
Creatinine 2.2 H
Glucose 100 H
Calcium 9.0
Vital Signs:
Vital Signs
Temp Pulse Resp BP Pulse Ox
36.7 C 62 18 167/70 97
01/15/25 08:24 01/15/25 08:24 01/15/25 08:24 01/15/25 08:24 01/15/25 08:24
I&O
01/14/25 01/15/25 01/16/25
06:59 06:59 06:59
Intake Total 120 / 120 240 / 240
Balance 120 / 120 240 / 240
Review of Systems
-
History Source: Patient
All other systems: Reviewed and negative
Physical Exam
-
General: Well Developed, No Apparent Distress, Comfortable and Conversant
HEENT: Normocephalic and Atraumatic
Respiratory: Clear to Auscultation and Non Labored Respirations; Negative Accessory Resp Muscle Use
Cardiac: Regular Rhythm and S1/S2
GI: Soft, Nontender and Nondistended
Skin: Warm and Dry
Neuro: Awake and Alert
Psych: Calm and Intact Judgement/Insight
Data Reviewed
-
Labs: Labs Reviewed by me, Discussed with Patient and Discussed with Family
--- NOTE | 2025-01-15 11:16 | W.PN.NEPH.PH ---
Today's Communication / Plan
-
IVF
Assessment/Plan
-
79-year-old female was past medical history significant for heart failure with reduced EF of 40 to 45%, COPD not on home O2, carotid stenosis, peripheral artery disease status post bypass, dqr-fymlrhc-skljevqix diabetes, hypertension, presents to
the emergency department after being discharged from [facility] with hyponatremia and a sodium of 125 as well as acute renal failure with a creatinine of 3.2.
Patient has a past medical history of ischemic cardiomyopathy recently had a cardiac stent placed in September in the setting of CHF exacerbation. She was also recently hospitalized again for CHF exacerbation at [facility].
Renal consultation for acute kidney injury creatinine 3.2 hyponatremia symptomatic fatigue.
Was given IV fluids overnight with improvement in creatinine 2.7 sodium remains at 126 from 125
Impression.
Acute kidney injury on chronic kidney disease at baseline creatinine 1.1
Hyponatremia multifactorial= chronic COPD/thiazide diuretic
CHF compensated= currently 43 kg/94 pounds= 99 pounds EDW
COPD= stable
Leukocytosis UTI?
Plan.
holding Lasix/spironolactone/losartan
samsca again today lower dose
On antibiotics for presumed UTI
if Cr continues to improve can restart losartan
-
-
Date of Service: January 15, 2025
CC / HPI / ROS
-
Chief Complaint:
RIO
History of Present Illness:
RIO/Cr down to 2.2
Na up to 131
BP stable high
Review of Systems:
no CP/SOB
Labs
-
Labs:
WBC 8.3 10^3/uL (4.8-10.8) 01/15/25 06:17
RBC 3.64 10^6/uL (4.20-5.40) L 01/15/25 06:17
Hgb 11.2 g/dL (12.0-16.0) L 01/15/25 06:17
Hct 32.0 % (37.0-47.0) L 01/15/25 06:17
Plt Count 235 10^3/uL (130-400) D 01/15/25 06:17
Sodium 131 mmol/L (135-145) L 01/15/25 06:17
Potassium 3.9 mmol/L (3.5-5.1) 01/15/25 06:17
Chloride 95 mmol/L (98-107) L 01/15/25 06:17
Carbon Dioxide 29 mmol/L (22-30) 01/15/25 06:17
BUN 79 mg/dl (7-17) H 01/15/25 06:17
Creatinine 2.2 mg/dL (0.6-1.0) H 01/15/25 06:17
eGFR 22.39 01/15/25 06:17
Glucose 100 mg/dl (70-99) H 01/15/25 06:17
Calcium 9.0 mg/dl (8.4-10.2) 01/15/25 06:17
Physical Exam
-
Vital Signs:
Vital Signs
Temp Pulse Resp BP Pulse Ox
98.1 F 62 18 167/70 97
01/15/25 08:24 01/15/25 08:24 01/15/25 08:24 01/15/25 08:24 01/15/25 08:24
Cardiovascular:: Regular rate and rhythm
Respiratory:: Bilateral: CTA
Lung Excursion:: Normal
Abdomen:: Nontender and Soft
Bowel Sounds:: Normal
Extremity Edema:: None: Bilateral:
[2025-01-15 11:25] VITALS: BP 123/69; BP 156/69; BP 186/79; PULSE 63; PULSE 71; PULSE 79
[2025-01-15] MEDS: DUONEB INH (14:07)
[2025-01-15 15:18] VITALS: BP 154/62
[2025-01-15 19:33] VITALS: BP 161/62
[2025-01-15] MEDS: COREG 25 MG PO (19:34)
[2025-01-15] MEDS: DUONEB 3 ML INH (19:50)
[2025-01-15] MEDS: STERILE WATER FOR INJECTION 10 ML IV (23:41)
[2025-01-15] MEDS: ROCEPHIN 1000 MG IV (23:42)
[2025-01-15 23:43] VITALS: BP 127/57
[2025-01-16 03:22] VITALS: BP 130/79
[2025-01-16 06:00] VITALS: BMI 17.8
[2025-01-16 07:02] VITALS: BP 107/61; BP 137/67; BP 179/73; PULSE 58; PULSE 61; PULSE 68
[2025-01-16 08:02] LABS: Hematocrit 33.5 % (37.0-47.0); Hemoglobin 11.2 g/dL (12.0-16.0); Mean Corp Hgb Conc. 33.4 g/dL (33.0-37.0); Mean Corpuscular Volume 88.4 fL (81.0-99.0); Platelet Count 260 10^3/uL (130-400); Red Cell Dist. Width 12.7 % (11.5-14.5)
[2025-01-16] MEDS: DUONEB 3 ML INH ×2 (08:02→19:22)
[2025-01-16 08:23] LABS: Blood Urea Nitrogen 61 mg/dl (7-17); Calcium 9.4 mg/dl (8.4-10.2); Carbon Dioxide 31 mmol/L (22-30); Chloride 97 mmol/L (98-107); Estimated Creatinine Clearance 16 ml/min; Glucose 96 mg/dl (70-99); Magnesium 2.3 mg/dl (1.6-2.3); Potassium 3.9 mmol/L (3.5-5.1); Sodium 133 mmol/L (135-145); eGFR 25.10
--- NOTE | 2025-01-16 08:46 | W.PN.HOSP.TC ---
Today's Communication/Plan
-
see A/P
Assessment / Plan
Assessment / Plan
HPI: 79-year-old female with past medical history of CHF with reduced EF of around 40%, atrial fibrillation on anticoagulation, CAD status post stenting most recently in September, COPD not on home O2 presented for abnormal labs where she was found to
have a sodium of 125 and a creatinine of 3.2. She was euvolemic to hypovolemic on examination. Suspect these findings are secondary to diuretic up titration and some hypovolemia.
She was recently hospitalized for CHF exacerbation at [facility], discharged on January 02. She was more recently placed on additional BP medications as well as diuretics. Appears that diuretic regiment was intensified to torsemide 40
mg by mouth daily, spironolactone 25 mg daily and she continued on losartan 12.5 mg p.o. daily.
A/P:
# Hyponatremia suspect secondary to hypovolemia in setting of uptitrated diuretic use.
Cont to hold diuretic
s/p IVF, cont to monitor without further IVF
TSH WNL at 2.3, random cortisol WNL at 24.5
Free water restriction adjusted to 48 ounces
s/p Samsca per renal
Nephrology on board
# RIO-suspect prerenal azotemia.
Hold diuretic
Hold spironolactone and losartan
s/p IV fluid
SCr improved from 3.2 to 2.0 today, cont to monitor
Renal dose medications
Nephrology on board
# UTI with E coli
E coli sensitive to ceftriaxone, pt has received 3 days, can stop further Abx
# Chronic HFmrEF
Holding diuretics temporarily
Continue daily weights and ins and outs
Continue beta-blockade, changed Toprol to Coreg for better BP control
Holding spironolactone and losartan for now and on discharge
Cardiology CS for diuretic recc
# CAD
Continue Xarelto and Plavix, holding aspirin
Continue Imdur 30 mg
Cardiology CSed
# COPD, stable no acute issues
Continue standing and PRN nebs per pt request
# Chronic Xarelto for h/o PAD
# Carotid stenosis
# PAD s/p left common iliac stenting and left femoral-popliteal bypass
DVT processes�on Xarelto
CODE STATUS�full code
PT: home PT vs no need
DW Card
Anticipated Discharge: Within 24 hours
Subjective/Interval History
-
Date of Service: January 16, 2025
Objective Data
-
Labs:
Laboratory Results
01/16/25
07:06
WBC 5.5
Hgb 11.2 L
Hct 33.5 L
Plt Count 260
Sodium 133 L
Potassium 3.9
Chloride 97 L
Carbon Dioxide 31 H
BUN 61 H
Creatinine 2.0 H
Glucose 96
Calcium 9.4
Vital Signs:
Vital Signs
Temp Pulse Resp BP Pulse Ox
36.4 C 81 15 179/73 99
01/16/25 07:02 01/16/25 08:04 01/16/25 08:04 01/16/25 07:02 01/16/25 08:04
I&O
01/15/25 01/16/25 01/17/25
06:59 06:59 06:59
Intake Total 240 / 240 600 / 600
Balance 240 / 240 600 / 600
Review of Systems
-
History Source: Patient
All other systems: Reviewed and negative
Physical Exam
-
General: Well Developed, No Apparent Distress, Comfortable and Conversant
HEENT: Normocephalic and Atraumatic
Respiratory: Clear to Auscultation and Non Labored Respirations; Negative Accessory Resp Muscle Use
Cardiac: Regular Rhythm and S1/S2
GI: Soft, Nontender and Nondistended
Skin: Warm and Dry
Neuro: Awake and Alert
Psych: Calm and Intact Judgement/Insight
Data Reviewed
-
Labs: Labs Reviewed by me, Discussed with Patient and Discussed with Family
[2025-01-16] MEDS: COREG 25 MG PO ×2 (10:35→20:34)
[2025-01-16] MEDS: XARELTO 2.5 MG PO (10:38)
[2025-01-16] MEDS: PLAVIX 75 MG PO (10:38)
[2025-01-16] MEDS: URSO 750 MG PO (10:38)
[2025-01-16] MEDS: PROTONIX 40 MG PO (10:39)
--- NOTE | 2025-01-16 10:46 | CON.CAR ---
Addendum entered and electronically signed by Alex Fine DO 01/16/25 12:28:
I saw and examined the patient.
The Pick And Shovel Worker's note was reviewed and I agree with the note.
Comment:
Patient is a pleasant 71-year-old female with a history of CAD with prior stenting, COPD, hypertension, heart failure with reduced ejection fraction (EF 40%), PAD, diabetes mellitus type 2 who was recently admitted to [facility] for heart
failure. Patient reporting worsening fatigue and weakness following discharge from [facility]. Patient now presenting with evaluation noted to be hyponatremic with an RIO. Patient's creatinine at baseline 1.0 was elevated to 3.2 on
admission with sodium of 125. Since then, patient's undergone evaluation and treatment by nephrology. Cardiology has requested for assessment on her antiplatelet/anticoagulation regimen and discussion regarding diuretic. In discussion with
patient, she reports overall feeling well. Denies chest pain, shortness of breath, palpitations, lightheadedness dizziness or weakness.
GENERAL: no acute distress, frail, cachectic
EYE: sclera anicteric
NECK: Supple, no JVD, no carotid bruit appreciated
ENT: normal nose, moist mucosal membranes
CARDIAC: Regular rate and rhythm, +S1/S2, 2/6 systolic murmur; no rubs, or gallops
CHEST/PULMONARY: Normal effort, clear breath sounds
ABDOMEN: Soft, without focal tenderness or distention
NEUROLOGICAL: Alert and oriented x3
SKIN: Warm and dry, no rash
PSYCH: Normal and appropriate interaction.
EKG 01/13/2025 shows sinus rhythm PACs and PVCs incomplete right bundle branch block and LAFB with minimal criteria for LVH
Telemetry shows sinus rhythm PACs/PVCs
A/P as below
Patient presenting with RIO and hyponatremia following hospitalization for heart failure. Patient received IV fluids and nephrotoxic's agents currently on hold. Nephrology following and guiding management regarding diuresis. Regarding patient's
CAD and PAD, recommendation at this time is for dual antiplatelet with aspirin and Plavix. Following discussion with vascular surgery, it is okay for patient to stay off of Xarelto at this time and remain only on antiplatelet. Patient is had no
documented atrial fibrillation. LVEF in September demonstrates improved heart muscle function. For now, continue carvedilol for BP and cardiomyopathy protection. Patient's losartan, spironolactone, torsemide currently on hold. Will defer to
nephrology in terms of timing for reinitiation. Patient expressed interest in transitioning care from [facility] to [facility] with [facility]. Patient did requested to follow-up with Dr Jeremiah Vital as outpatient as he had
performed her intervention.
No further recommendations from CV standpoint. Will sign off. Please call back with questions.
Original Note:
Consultation
Consultation Request
Date/Time Consultation Requested: 01/16/2025
Date/Time Consultation Performed: 01/16/2025
Requesting Provider: Dr. Hope
Performing Provider: Chrissy Sutton PA-C for Dr. Fine
Reason for Consultation: h/o CHF w/ RIO
Medical History
-
History of Present Illness:
Kristina is a 79 yo F with H of CAD s/p complex RCA stenting and left main PCI 09/2024, COPD with admission to [facility] for exacerbation requiring intubation 08/2024, chronic HFrEF, carotid stenosis, PAD with prior left femoropopliteal bypass and L common
iliac stenting, hypertension, type 2 diabetes. She was recently admitted at [facility] for CHF exacerbation and she was placed on torsemide, spironolactone, and was restarted on her losartan. Since discharge on 01/02/2025, she has had worsening fatigue
and weakness. On outpatient lab work, she was noted to be hyponatremic and had RIO, so was recommended for ER evaluation. On arrival, Na 125 with creat 3.2. Her torsemide, spironolactone, and losartan were placed on hold and nephrology has been
following. Receiving IV fluids and creatinine improving. She is followed by Dr. Regalado at [facility] cardiology. Last office visit 11/2024 reviewed. As noted above, she had recent hospitalization at [facility] 09/2024 and had complex stenting of the
left main and RCA and was recommended to continue DAPT with aspirin and Plavix likely for at least a year post stenting. If Plavix discontinued, plan would be to resume Xarelto at that time, however it appears she has been taking aspirin, Plavix,
and Xarelto based on cardiology note 11/2024. Hemoglobin stable at 11.2. No evidence of bleeding. No current cardiac complaints.
PMH:
MV CAD including L main disease by cath at [facility] 10/06/24
s/p complex RCA stenting pretreated with shockwave lithotripsy and left main PCI 10/14/24.
COPD with admission to [facility] for exacerbation requiring intubation 08/2024
Chronic HFrEF
Cardiomyopathy, EF 40-45%
Carotid stenosis
PAD s/p left common iliac stenting and left femoral-popliteal bypass
Hypertension
HLD
Type 2 diabetes
Temporal arteritis
Past Medical History
Past Medical History: Other (in HPI)
Social History
Tobacco: Former Smoker
Alcohol: None
Personal:
Living: With Family
Employment: Retired
Allergies / Home Medications
Allergy/AdvReac Type Severity Reaction Status Date / Time
No Known Allergies Allergy Verified 09/01/24 21:26
�Medication �Instructions �Recorded �Confirmed �Type
aspirin 81 mg chewable tablet 81 mg PO DAILY #90 tabs 10/24/22 01/13/25 Rx
calcium 600 mg (as 1 tab PO DAILY Supplement 09/02/24 01/13/25 History
carbonate)-vitamin D3 5 mcg (200
unit) tablet
evolocumab 140 mg/mL subcutaneous 140 mg SC Q2W High Cholesterol 09/02/24 01/13/25 History
syringe (Repatha Syringe)
furosemide 20 mg tablet 20 mg PO DAILY Fluid 09/02/24 01/13/25 History
Retention/Swelling
multivitamin 1 tab PO DAILY Supplement 09/02/24 01/13/25 History
rivaroxaban 2.5 mg tablet 2.5 mg PO BID Blood Clot 09/02/24 01/13/25 History
Held on 10/15/24. Prevention/Tx
Instructions: Resume on
06/10/25. While taking DAPT
do not take Xarelto. Once
DAPT is discontinued can
discuss with outpatient
home sales service professional/PCP to resume
Xarelto twice a day 2.5 mg
with ASA if clinically
indicated at that time.
ursodiol 250 mg tablet 750 mg PO DAILY Gallstone 09/02/24 10/07/24 History
Dissolution Age
albuterol sulfate 90 mcg/actuation 2 puff inhalation PRN shortness of 09/03/24 01/13/25 Rx
aerosol inhaler breath #8.5 grams
losartan 25 mg tablet 25 mg PO DAILY Blood Pressure 10/06/24 01/13/25 History
spironolactone 25 mg tablet 25 mg PO DAILY Fluid 10/06/24 01/13/25 History
Retention/Swelling
clopidogrel 75 mg tablet 75 mg PO DAILY #30 tabs 10/15/24 01/13/25 Rx
metoprolol succinate 25 mg 37.5 mg (1.5 x 25 mg) PO BID #180 10/15/24 01/13/25 Rx
tablet,extended release 24 hr tabs
pantoprazole 40 mg tablet,delayed 40 mg PO DAILY #30 tabs 10/15/24 01/13/25 Rx
release
Review of Systems
-
History Source: Patient
All other systems: Negative unless noted
Physical Exam
Vital Signs
Temp Pulse Resp BP Pulse Ox
97.5 F 81 15 179/73 99
01/16/25 07:02 01/16/25 08:04 01/16/25 08:04 01/16/25 07:02 01/16/25 08:04
Lab Results
01/16/25 07:06
01/16/25 07:06
Physical Exam
General: Well Developed, Well Nourished and No Apparent Distress
HEENT: Normocephalic, Anicteric and Moist Mucous Membranes
Respiratory: Clear and Non Labored Respirations
Cardiac: S1/S2 and Regular Rhythm
Musculoskeletal: No Clubbing, No Cyanosis and No Edema
Skin: Warm and Dry
Neuro: AO x 3 and Nonfocal/Grossly Intact
Psych: Calm
Impression / Plan
-
PCP: Dr. Conklin
Selvage Machine Operator: Dr. Regalado ([facility]), may wish to transition to [facility]
Impression:
Presented w/ weakness, fatigue after recent hospitalization at [facility]
RIO
Hyponatremia
MV CAD including L main disease by cath at [facility] 10/06/24
s/p complex RCA stenting pretreated with shockwave lithotripsy and left main PCI 10/14/24.
COPD with admission to [facility] for exacerbation requiring intubation 08/2024
Chronic HFpEF
Cardiomyopathy w/ improved EF by echo 09/2024
Carotid stenosis
PAD s/p left common iliac stenting and left femoral-popliteal bypass
Hypertension
HLD
Type 2 diabetes
Temporal arteritis
Echo 09/02/2024: Global hypokinesis, EF 40 to 45%, mild concentric LVH, stage II diastolic dysfunction, mild to moderate MR, mild TR, PAP 43 mm
Echo 10/07/2024: EF 54%, mild to moderate MR, mild TR, PAP 39 mmHg
Plan:
-Presented with weakness and fatigue. RIO and hyponatremia noted on arrival.
-Losartan, spironolactone, and torsemide on hold. Nephrology following and managing. Creat continues to improve, but remains elevated at 2.0. Defer plan for resuming to nephrology
-She has h/o CAD with recent PCI of left main and RCA 09/2024. At discharge, plan was to remain on DAPT with aspirin and plavix.
-She is on Xarelto for h/o PAD and vascular surgery said if plavix eventually stopped, would resume Xarelto 2.5mg BID at that time, however appears patient has been taking Xarelto, aspirin, and plavix as OP.
-Would stop Xarelto at this time and continue aspirin and plavix alone for now. Hgb stable at 11.2. No bleeding noted.
-EKG stable, SR with PACs. No h/o atrial fibrillation.
-EF 54% by most recent echo. On metoprolol as OP, transitioned to coreg this admission for better BP control as losartan and spironolactone on hold.
-Depending on renal function, could consider starting hydralazine/imdur if not able to restart spironolactone/losartan.
-No chest pain or SOB. Feeling well
-Requested and reviewed recent OP cardiology records.
-Considering transitioning to [facility] to consolidate care locally. Will arrange follow up visit.
HPI: Kristina is a 79 yo F with H of CAD s/p complex RCA stenting and left main PCI 09/2024, COPD with admission to [facility] for exacerbation requiring intubation 08/2024, chronic HFrEF, carotid stenosis, PAD with prior left femoropopliteal bypass and L
common iliac stenting, hypertension, type 2 diabetes. She was recently admitted at [facility] for CHF exacerbation and she was placed on torsemide, spironolactone, and was restarted on her losartan. Since discharge on 01/02/2025, she has had worsening
fatigue and weakness. On outpatient lab work, she was noted to be hyponatremic and had RIO, so was recommended for ER evaluation. On arrival, Na 125 with creat 3.2. Her torsemide, spironolactone, and losartan were placed on hold and nephrology
has been following. Receiving IV fluids and creatinine improving. She is followed by Dr. Regalado at [facility] cardiology. Last office visit 11/2024 reviewed. As noted above, she had recent hospitalization at [facility] 09/2024 and had complex
stenting of the left main and RCA and was recommended to continue DAPT with aspirin and Plavix likely for at least a year post stenting. If Plavix discontinued, plan would be to resume Xarelto at that time, however it appears she has been taking
aspirin, Plavix, and Xarelto based on cardiology note 11/2024. Hemoglobin stable at 11.2. No evidence of bleeding. No current cardiac complaints.
Data Reviewed
-
EKG: Tracing Personally Visualized and interpreted
Labs: Labs Reviewed by me
Old Records: Requested and Reviewed
--- NOTE | 2025-01-16 10:55 | VNURNOTE ---
Home health liaison met with patient to discuss [facility] services, visit scheduling/frequency, homebound status and pet policy. Patient agreeable to [facility] services and understands home visits will be 1-2 times a week to assess and teach medical
management. Patient aware a visiting nurse will contact her for start of care within 1 week after discharge from . [facility] Referral completed in care port
[2025-01-16 11:16] VITALS: BP 174/68
[2025-01-16 11:23] VITALS: BP 180/90
--- NOTE | 2025-01-16 11:57 | CM ---
CM reviewed chart, patient seen bedside.
CM discussed therapy recommendations of home health- patient agreeable, reports she spoke with liaison from [facility] earlier today.
Patient confirms transport home from upon d.c
IMM verbally reviewed, provided with copy, placed in chart.
CM will continue to follow.
Plan; home with [facility]N
--- NOTE | 2025-01-16 14:11 | W.PN.NEPH.PH ---
Today's Communication / Plan
-
Follow BMP
Assessment/Plan
-
79-year-old female was past medical history significant for heart failure with reduced EF of 40 to 45%, COPD not on home O2, carotid stenosis, peripheral artery disease status post bypass, lwz-xhnyipn-gznwsreeq diabetes, hypertension, presents to
the emergency department after being discharged from [facility] with hyponatremia and a sodium of 125 as well as acute renal failure with a creatinine of 3.2.
Patient has a past medical history of ischemic cardiomyopathy recently had a cardiac stent placed in September in the setting of CHF exacerbation. She was also recently hospitalized again for CHF exacerbation at [facility].
Renal consultation for acute kidney injury creatinine 3.2 hyponatremia symptomatic fatigue.
Was given IV fluids overnight with improvement in creatinine 2.7 sodium remains at 126 from 125
Impression.
Acute kidney injury on chronic kidney disease at baseline creatinine 1.1
Hyponatremia multifactorial= chronic COPD/thiazide diuretic
CHF compensated= currently 43 kg/94 pounds= 99 pounds EDW
COPD= stable
Leukocytosis UTI?
Plan.
holding Lasix/spironolactone/losartan
No further Samsca
On antibiotics for presumed UTI
On carvedilol for hypertension
Could add amlodipine or hydralazine if blood pressure rises before creatinine improves enough for losartan to be restarted
-
-
Date of Service: January 16, 2025
CC / HPI / ROS
-
Chief Complaint:
RIO
History of Present Illness:
RIO/Cr down to 2.0
Na up to 133
BP stable high
Review of Systems:
no CP/SOB
Labs
-
Labs:
WBC 5.5 10^3/uL (4.8-10.8) 01/16/25 07:06
RBC 3.79 10^6/uL (4.20-5.40) L 01/16/25 07:06
Hgb 11.2 g/dL (12.0-16.0) L 01/16/25 07:06
Hct 33.5 % (37.0-47.0) L 01/16/25 07:06
Plt Count 260 10^3/uL (130-400) 01/16/25 07:06
Sodium 133 mmol/L (135-145) L 01/16/25 07:06
Potassium 3.9 mmol/L (3.5-5.1) 01/16/25 07:06
Chloride 97 mmol/L (98-107) L 01/16/25 07:06
Carbon Dioxide 31 mmol/L (22-30) H 01/16/25 07:06
BUN 61 mg/dl (7-17) H 01/16/25 07:06
Creatinine 2.0 mg/dL (0.6-1.0) H 01/16/25 07:06
eGFR 25.10 01/16/25 07:06
Glucose 96 mg/dl (70-99) 01/16/25 07:06
Calcium 9.4 mg/dl (8.4-10.2) 01/16/25 07:06
Physical Exam
-
Vital Signs:
Vital Signs
Temp Pulse Resp BP Pulse Ox
97.4 F 56 18 174/68 99
01/16/25 11:16 01/16/25 11:16 01/16/25 11:16 01/16/25 11:16 01/16/25 11:16
Cardiovascular:: Regular rate and rhythm
Respiratory:: Bilateral: Coarse
Lung Excursion:: Normal
Abdomen:: Nontender and Soft
Bowel Sounds:: Normal
Extremity Edema:: None: Bilateral:
[2025-01-16 15:18] VITALS: BP 114/50
[2025-01-16 23:28] VITALS: BP 129/65
[2025-01-17 06:00] VITALS: BMI 17.8
[2025-01-17 07:34] VITALS: BP 149/65; BP 157/77; BP 169/71; PULSE 64; PULSE 70; PULSE 75
[2025-01-17] MEDS: DUONEB 3 ML INH (07:46)
[2025-01-17 08:20] LABS: Blood Urea Nitrogen 47 mg/dl (7-17); Calcium 8.9 mg/dl (8.4-10.2); Carbon Dioxide 28 mmol/L (22-30); Chloride 99 mmol/L (98-107); Estimated Creatinine Clearance 22 ml/min; Glucose 98 mg/dl (70-99); Potassium 3.9 mmol/L (3.5-5.1); Sodium 131 mmol/L (135-145); eGFR 35.45
[2025-01-17] MEDS: URSO 750 MG PO (08:42)
[2025-01-17] MEDS: LOW STRENGTH ASPIRIN 81 MG PO (08:43)
[2025-01-17] MEDS: PROTONIX 40 MG PO (08:43)
[2025-01-17] MEDS: PLAVIX 75 MG PO (08:43)
[2025-01-17] MEDS: COREG 25 MG PO (08:49)
--- NOTE | 2025-01-17 08:50 | PTCARENOTE ---
PT AOX3 OOB, PUTTING ON HER MAKEUP THIS AM. DENIES PAIN, SOB, N/V, DIZZINESS. STATED THAT SHE FEELS BETTER THAN YESTERDAY AND HOPES TO GO HOME TODAY. AWAITING BREAKFAST, [place] IN REACH
--- NOTE | 2025-01-17 09:31 | W.PN.HOSP.TC ---
Addendum entered and electronically signed by Maria Ines Hope MD 01/17/25 11:17:
d/w Renal
recc to resume lasix and losartan at OP doses (Lasix 20 mg and Losartan 25 mg daily).
Cont to hold Losartan
OK for DC
updated on the phone
Original Note:
Today's Communication/Plan
-
check BP at noon
Assessment / Plan
Assessment / Plan
HPI: 79-year-old female with past medical history of CHF with reduced EF of around 40%, atrial fibrillation on anticoagulation, CAD status post stenting most recently in September, COPD not on home O2 presented for abnormal labs where she was found to
have a sodium of 125 and a creatinine of 3.2. She was euvolemic to hypovolemic on examination. Suspect these findings are secondary to diuretic up titration and some hypovolemia.
She was recently hospitalized for CHF exacerbation at [facility], discharged on January 02. She was more recently placed on additional BP medications as well as diuretics. Appears that diuretic regiment was intensified to torsemide 40
mg by mouth daily, spironolactone 25 mg daily and she continued on losartan 12.5 mg p.o. daily.
A/P:
# Hyponatremia suspect secondary to hypovolemia in setting of uptitrated diuretic use.
Cont to hold diuretic
s/p IVF, cont to monitor without further IVF
Sodium level 131 today
TSH WNL at 2.3, random cortisol WNL at 24.5
Free water restriction adjusted to 48 ounces
s/p Samsca per renal
Nephrology on board
# RIO-suspect prerenal azotemia.
Hold diuretic
Hold spironolactone and losartan
s/p IV fluid
SCr improved from 3.2 to 1.5 today, cont to monitor
Renal dose medications
Nephrology on board
# UTI with E coli
E coli sensitive to ceftriaxone, pt has received 3 days ceftriaxone, completed treatment
# Chronic HFmrEF
Holding diuretics temporarily
Continue daily weights and ins and outs
Continue beta-blockade, changed Toprol to Coreg for better BP control
Holding spironolactone and losartan for now and on discharge
Cardiology consulted
# CAD
# h/o PAD
per card, discussed with vascular surgery, OK to hold of Xarelto, cont DAPT with ASA and plavix.
Continue Imdur 30 mg
Cardiology CSed
# COPD, stable no acute issues
Continue standing and PRN nebs per pt request
# Carotid stenosis
# PAD s/p left common iliac stenting and left femoral-popliteal bypass
DVT processes�Off Xarelto, start HSQ
CODE STATUS�full code
PT: home PT vs no need
DW RN
Anticipated Discharge: Within 24 hours
Subjective/Interval History
-
Date of Service: January 17, 2025
Objective Data
-
Labs:
Laboratory Results
01/17/25
06:52
Sodium 131 L
Potassium 3.9
Chloride 99
Carbon Dioxide 28
BUN 47 H
Creatinine 1.5 H
Glucose 98
Calcium 8.9
Vital Signs:
Vital Signs
Temp Pulse Resp BP Pulse Ox
36.6 C 70 16 169/71 98
01/17/25 07:34 01/17/25 07:49 01/17/25 07:49 01/17/25 07:34 01/17/25 07:49
I&O
01/16/25 01/17/25 01/18/25
06:59 06:59 06:59
Intake Total 600 / 600 940 / 940
Balance 600 / 600 940 / 940
Review of Systems
-
History Source: Patient
All other systems: Reviewed and negative
Physical Exam
-
General: Well Developed, No Apparent Distress, Comfortable and Conversant
HEENT: Normocephalic and Atraumatic
Respiratory: Clear to Auscultation and Non Labored Respirations; Negative Accessory Resp Muscle Use
Cardiac: Regular Rhythm and S1/S2
GI: Soft, Nontender and Nondistended
Skin: Warm and Dry
Neuro: Awake and Alert
Psych: Calm and Intact Judgement/Insight
Data Reviewed
-
Labs: Labs Reviewed by me, Discussed with Patient and Discussed with Family
--- NOTE | 2025-01-17 11:08 | W.PN.NEPH.PH ---
Today's Communication / Plan
-
dc
Assessment/Plan
-
79-year-old female was past medical history significant for heart failure with reduced EF of 40 to 45%, COPD not on home O2, carotid stenosis, peripheral artery disease status post bypass, qdh-uskzkyq-systpjeld diabetes, hypertension, presents to
the emergency department after being discharged from [facility] with hyponatremia and a sodium of 125 as well as acute renal failure with a creatinine of 3.2.
Patient has a past medical history of ischemic cardiomyopathy recently had a cardiac stent placed in September in the setting of CHF exacerbation. She was also recently hospitalized again for CHF exacerbation at [facility].
Renal consultation for acute kidney injury creatinine 3.2 hyponatremia symptomatic fatigue.
Was given IV fluids overnight with improvement in creatinine 2.7 sodium remains at 126 from 125
Impression.
Acute kidney injury on chronic kidney disease at baseline creatinine 1.1
Hyponatremia multifactorial= chronic COPD/thiazide diuretic
CHF compensated= currently 43 kg/94 pounds= 99 pounds EDW
COPD= stable
Leukocytosis UTI?
Plan.
On antibiotics for presumed UTI
On carvedilol for hypertension
for dc
can restart lasix and losartan OP doses.
can restart spironolactone after seen by PCP
-
-
Date of Service: January 17, 2025
CC / HPI / ROS
-
Chief Complaint:
RIO
History of Present Illness:
RIO/Cr down to 1.5
Na 131
BP stable high
Review of Systems:
no CP/SOB
Labs
-
Labs:
WBC 5.5 10^3/uL (4.8-10.8) 01/16/25 07:06
RBC 3.79 10^6/uL (4.20-5.40) L 01/16/25 07:06
Hgb 11.2 g/dL (12.0-16.0) L 01/16/25 07:06
Hct 33.5 % (37.0-47.0) L 01/16/25 07:06
Plt Count 260 10^3/uL (130-400) 01/16/25 07:06
Sodium 131 mmol/L (135-145) L 01/17/25 06:52
Potassium 3.9 mmol/L (3.5-5.1) 01/17/25 06:52
Chloride 99 mmol/L (98-107) 01/17/25 06:52
Carbon Dioxide 28 mmol/L (22-30) 01/17/25 06:52
BUN 47 mg/dl (7-17) H 01/17/25 06:52
Creatinine 1.5 mg/dL (0.6-1.0) H 01/17/25 06:52
eGFR 35.45 01/17/25 06:52
Glucose 98 mg/dl (70-99) 01/17/25 06:52
Calcium 8.9 mg/dl (8.4-10.2) 01/17/25 06:52
Physical Exam
-
Vital Signs:
Vital Signs
Temp Pulse Resp BP Pulse Ox
97.9 F 70 16 169/71 98
01/17/25 07:34 01/17/25 07:49 01/17/25 07:49 01/17/25 07:34 01/17/25 07:49
Cardiovascular:: Regular rate and rhythm
Respiratory:: Bilateral: Coarse
Lung Excursion:: Normal
Abdomen:: Nontender and Soft
Bowel Sounds:: Normal
Extremity Edema:: None: Bilateral:
--- NOTE | 2025-01-17 11:31 | CM ---
Discharge home today
[facility] following
Spouse will transport home
No other CM needs at this time
[facility]

Plan: Home w/ [facility]
--- NOTE | 2025-01-17 13:45 | W.DCSUMMARY ---
Discharge Summary
Discharge Data
Date of Admission: 01/13/25
Date of Discharge: 01/17/25
Total time spent discharging patient (in min): 40
-
Pending Results: No
Hospital Course
Principal Diagnosis:
Hypovolemic hyponatremia secondary to uptitrated diuretic dose, resolved
Prerenal RIO, improved.
UTI with E coli
Chronic Diagnoses:�
CAD status post stent (most recent in September 2024)
PAD s/p left common iliac stenting and left femoral-popliteal bypass
COPD, stable no acute issues
Carotid stenosis
Chronic HFmrEF (EF around 40%)
Atrial fibrillation was ruled out per cardiology
Consultations:�
Nephrology
Cardiology
Procedures:�
None
Clinical course:�
This is a 79-year-old female with past medical history as stated above, who presented with abnormal blood work (sodium of 125 and a creatinine of 3.2).
She was recently hospitalized for CHF exacerbation at [facility], and was discharged on torsemide 40 mg daily, spironolactone 25 mg daily and was continued on losartan 12.5 mg p.o. daily.
Problem 1:
Hypovolemic hyponatremia secondary to uptitrated diuretic dose, resolved.
This was associated with prerenal RIO, which has improved.
Her sodium level improved from 125 on admission to 131 on the day of discharge.
She received IV fluid on admission which was not continued due to history of heart failure.
She also received Samsca to help improve her hyponatremia.
Her prior to admission diuretic was held while in the hospital.
TSH and random cortisol level were checked as part of the hyponatremia workup, and they were within normal limits at 2.3 and 24.5, respectively
She can continue free water restriction at 48 ounces.
Her serum creatinine improved from 3.2 on admission to 1.5 on the day of discharge.
Per nephrology, she can resume Lasix 20 mg and losartan 25 mg following discharge, but continue to hold Aldactone.
She can check BMP in 1 week, result to her PCP.
Problem 3:
UTI with E coli.
E coli was sensitive to ceftriaxone, and the patient received 3 days of ceftriaxone while in the hospital.
As for the rest of her medical problems, they were stable during her hospital stay.
Discharge Plan
-
Patient Disposition: Home with Home Care
Discharge Diagnosis/Procedures: Hyponatremia and acute kidney injury due to uptitrated diuretic dose;
UTI with E coli (completed treatment with Ceftriaxone)
Condition: Fair
Diet: As tolerated, Regular, Low Fat, Low Cholesterol and Restrict fluids to 48 oz
Activity: As tolerated
Driving Restrictions: As prior to admission
Specialty Instructions: Weigh Daily- Call MD for wt gain/loss 3 lbs overnight/5 lbs in 1 week
Referrals:
Chrissy Sutton PA-C [Specified Professional Personl, Cardiology] - 01/30/25 9:00 am
Referral Note: You have a follow up visit with Dr. Fine's PA, Chrissy Sutton, at the [place] office. Please call with questions.
Ino Conklin MD [Family Provider, Family Practice] - in less than 1 week
Additional Discharge Medication Instructions: Stop Xarelto, Continue aspirin and Plavix going forward
Toprol was changed to Coreg for better blood pressure control.
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
Prescriptions:
New
carvedilol 25 mg Tablet
25 mg PO BID Qty: 60 0RF
(DME) BMP
See Rx Instructions .Route .MEDSUPPLY Qty: 1 0RF
Rx Instructions:
01/21 to 01/28/2025, result to PCP
# RIO
Continued
aspirin 81 mg Tablet,Chewable
81 mg PO DAILY Qty: 90 0RF
multivitamin Tablet
1 tab PO DAILY
calcium carbonate-vitamin D3 600 mg-5 mcg (200 unit) Tablet
1 tab PO DAILY
furosemide 20 mg Tablet
20 mg PO DAILY
ursodiol 250 mg Tablet
750 mg PO DAILY
Repatha Syringe 140 mg/mL Syringe
140 mg SC Q2W
albuterol sulfate 90 mcg/actuation Hfa Aerosol Inhaler
2 puff INHALATION PRN Qty: 8.5 0RF
Rx Instructions:
rescue inhailer
losartan 25 mg Tablet
25 mg PO DAILY
Patient Comments:
25 MG - PO daily
clopidogrel 75 mg Tablet
75 mg PO DAILY Qty: 30 0RF
pantoprazole 40 mg Tablet,Delayed Release (Dr/Ec)
40 mg PO DAILY Qty: 30 0RF
Discontinued
rivaroxaban 2.5 mg Tablet
2.5 mg PO BID
spironolactone 25 mg Tablet
25 mg PO DAILY
metoprolol succinate 25 mg Tablet Extended Release 24 Hr
37.5 mg PO BID Qty: 180 0RF
Discharge Orders:
Discharge Patient (As Directed); Ordered 01/17/25
Ordered By: Maria Ines Hope
Discharge Date and Time
Discharge Date/Time: 01/17/25 13:24
Print Language: [id number]
== END 2025-01-17 13:24 | disposition home health service (06) | DRG 683 ==
LOC: 4 WEST ACU 21:36
PROVIDERS: ADMITTING PHYSICIAN Internal Medicine; ATTENDING PHYSICIAN Internal Medicine; CONSULT PHYSICIAN Internal Medicine Cardiovascular Disease; EMERGENCY PHYSICIAN Emergency Medicine; FAMILY PHYSICIAN Family Medicine; OTHER PHYSICIAN Internal Medicine Nephrology
DX: N17.9 Acute kidney failure, unspecified (principal); E87.1 Hypo-osmolality and hyponatremia; N39.0 Urinary tract infection, site not specified; I50.42 Chronic combined systolic (congestive) and diastolic (congestive) heart failure; I13.0 Hypertensive heart and chronic kidney disease with heart failure and stage 1 through stage 4 chronic kidney disease, or unspecified chronic kidney disease; I45.2 Bifascicular block; Z68.1 Body mass index [BMI] 19.9 or less, adult; E86.1 Hypovolemia; B96.20 Unspecified Escherichia coli [E. coli] as the cause of diseases classified elsewhere; I25.10 Atherosclerotic heart disease of native coronary artery without angina pectoris; Z95.5 Presence of coronary angioplasty implant and graft; Z79.899 Other long term (current) drug therapy; J44.9 Chronic obstructive pulmonary disease, unspecified; K76.0 Fatty (change of) liver, not elsewhere classified; E11.22 Type 2 diabetes mellitus with diabetic chronic kidney disease; N18.9 Chronic kidney disease, unspecified; Z79.82 Long term (current) use of aspirin; Z79.02 Long term (current) use of antithrombotics/antiplatelets; Z79.01 Long term (current) use of anticoagulants; E78.00 Pure hypercholesterolemia, unspecified; F17.200 Nicotine dependence, unspecified, uncomplicated; I25.5 Ischemic cardiomyopathy; I49.3 Ventricular premature depolarization; Z11.52 Encounter for screening for COVID-19; R63.6 Underweight
CPT/HCPCS: 36415; 80048; 80053; 81003; 81015; 82533; 83735; 83930; 83935; 84300; 84443; 85025; 85027; 87077; 87086; 87186; 87502; 87811; 93005; 94640; 96360; 96361; 97110; 97116; 97162; 99284

== ENCOUNTER → 2025-01-21 09:48 | Outpatient (REF) | payer MEDICARE, BC, SELFPAY ==
[2025-01-21 11:21] LABS: Blood Urea Nitrogen 42 mg/dl (7-17); Calcium 9.6 mg/dl (8.4-10.2); Carbon Dioxide 30 mmol/L (22-30); Chloride 100 mmol/L (98-107); Glucose 96 mg/dl (70-99); Potassium 4.8 mmol/L (3.5-5.1); Sodium 135 mmol/L (135-145); eGFR 32.81
== END ==
LOC: REG 09:48
PROVIDERS: ATTENDING PHYSICIAN Internal Medicine; FAMILY PHYSICIAN Family Medicine
DX: E87.1 Hypo-osmolality and hyponatremia (principal); N17.9 Acute kidney failure, unspecified
CPT/HCPCS: 36415; 80048

== ENCOUNTER → 2025-02-06 09:54 | Outpatient (REF) | payer MEDICARE, BC, SELFPAY ==
[2025-02-06 11:29] LABS: Blood Urea Nitrogen 42 mg/dl (7-17); Calcium 9.2 mg/dl (8.4-10.2); Carbon Dioxide 28 mmol/L (22-30); Chloride 99 mmol/L (98-107); Glucose 106 mg/dl (70-99); Potassium 5.2 mmol/L (3.5-5.1); Sodium 133 mmol/L (135-145); eGFR 23.67
== END ==
LOC: REG 09:54
PROVIDERS: ATTENDING PHYSICIAN Family Medicine
DX: N17.9 Acute kidney failure, unspecified (principal)
CPT/HCPCS: 36415; 80048

== ENCOUNTER → 2025-02-09 14:34 | Outpatient (REF) | payer MEDICARE, BC, SELFPAY ==
[2025-02-09 15:56] LABS: Blood Urea Nitrogen 38 mg/dl (7-17); Calcium 9.4 mg/dl (8.4-10.2); Carbon Dioxide 30 mmol/L (22-30); Chloride 97 mmol/L (98-107); Glucose 88 mg/dl (70-99); Potassium 4.2 mmol/L (3.5-5.1); Sodium 133 mmol/L (135-145); eGFR 38.51
== END ==
LOC: REG 14:34
PROVIDERS: ATTENDING PHYSICIAN Family Medicine
DX: J44.9 Chronic obstructive pulmonary disease, unspecified (principal); I25.10 Atherosclerotic heart disease of native coronary artery without angina pectoris; I50.22 Chronic systolic (congestive) heart failure; R79.89 Other specified abnormal findings of blood chemistry
CPT/HCPCS: 36415; 71046; 80048

== ENCOUNTER → 2025-02-13 11:29 | Outpatient (REF) | payer MEDICARE, BC, SELFPAY ==
[2025-02-13 13:27] LABS: Blood Urea Nitrogen 29 mg/dl (7-17); Calcium 9.4 mg/dl (8.4-10.2); Carbon Dioxide 30 mmol/L (22-30); Chloride 99 mmol/L (98-107); Glucose 99 mg/dl (70-99); Potassium 4.0 mmol/L (3.5-5.1); Sodium 135 mmol/L (135-145); eGFR 42.09
== END ==
LOC: REG 11:29
PROVIDERS: ATTENDING PHYSICIAN Family Medicine; FAMILY PHYSICIAN Family Medicine
DX: I50.22 Chronic systolic (congestive) heart failure (principal); R79.89 Other specified abnormal findings of blood chemistry
CPT/HCPCS: 36415; 80048